=== PATIENT | female | born 1985 | race Two or more races ===

== ENCOUNTER 2020-07-28 08:01 | Outpatient (REF) | payer OTHER, SELFPAY ==
[2020-07-31 20:12] LABS: HPV 16 RNA NOT DETECTED (NOT DETECTED); HPV mRNA E6/E7 rflx Detected (Not Detected)
== END 2020-07-28 08:02 | disposition home or self-care (01) ==
LOC: HO.LAB 08:01
PROVIDERS: Visit Provider Advanced Practice Midwife
DX: Z12.4 Encounter for screening for malignant neoplasm of cervix (principal); Z87.42 Personal history of other diseases of the female genital tract; Z86.19 Personal history of other infectious and parasitic diseases
CPT/HCPCS: 87624; 87625; 88141; 88142

== ENCOUNTER 2021-06-02 09:08 | Outpatient (REF) | payer OTHER, SELFPAY ==
[2021-06-04 07:13] LABS: CT PCR NOT DETECTED (Not Detect.); NG PCR NOT DETECTED (Not Detect.)
[2021-06-04 11:03] LABS: BV Int Neg Control Negative (Negative); BV Int Pos Control Positive (Positive)
[2021-06-06 11:11] LABS: HPV mRNA E6/E7 rflx Not Detected (Not Detected)
== END 2021-06-02 09:09 | disposition home or self-care (01) ==
LOC: HO.LAB 09:08
PROVIDERS: Visit Provider Advanced Practice Midwife
DX: Z01.419 Encounter for gynecological examination (general) (routine) without abnormal findings (principal); Z11.51 Encounter for screening for human papillomavirus (HPV); Z20.2 Contact with and (suspected) exposure to infections with a predominantly sexual mode of transmission; Z87.42 Personal history of other diseases of the female genital tract; Z87.59 Personal history of other complications of pregnancy, childbirth and the puerperium; Z86.19 Personal history of other infectious and parasitic diseases
CPT/HCPCS: 87480; 87491; 87510; 87591; 87624; 87660; 88142

== ENCOUNTER 2021-09-14 16:23 | Emergency (ER) | payer OTHER, SELFPAY ==
[2021-09-14 16:46] VITALS: BP 181/113; PULSE 99; RESP 16; TEMP 36.9; O2SAT 98; BMI 34.9
[2021-09-14] MEDS: Tetracaine HCl/PF 0.5% Oph Sol 4 ML DROPS 3 DROP EYE-BOTH (17:31)
[2021-09-14] MEDS: Fluorescein Sodium STRIP 1 STRIP EYE-RIGHT (17:32)
[2021-09-14] MEDS: Fluorescein Sodium STRIP 1 STRIP EYE-LEFT (17:32)
[2021-09-14 17:45] VITALS: BP 156/100; PULSE 88; RESP 18; TEMP 36.7; O2SAT 100
--- NOTE | 2021-09-14 18:17 | ED.EYEPROB ---
HPI - Eye Problem General Chief complaint: Eye Problems Stated complaint: left eye painful and swollen Time Seen by Provider: 09/14/21 17:07 Source: patient Mode of arrival: ambulatory Limitations: no limitations History of Present Illness HPI Narrative: Patient presents to ED for left eye pain, redness, and clear discharge since yesterday. Patient states she thinks something is in her eye. Patient states eye irritation started yesterday. Patient denies any blunt trauma to the eye any or chemicals going into left eye. Patient denies any blurry vision, headache, nausea, vomiting, fever , or chills. Related Data Home Medications Medication Instructions Recorded Confirmed folic acid 400 mcg tablet PO 07/28/20 06/02/21 sertraline 100 mg tablet 100 mg PO DAILY 07/28/20 06/02/21 topiramate 100 mg tablet mg PO 07/28/20 06/02/21 Previous Rx's Medication Instructions Recorded metronidazole 500 mg tablet 500 mg PO BID 7 Days #14 tab 06/05/21 erythromycin 5 mg/gram (0.5 %) eye 0.5 inch OPHTHALMIC (EYE) QID 7 09/14/21 ointment Days #3.5 g naproxen 500 mg tablet 500 mg PO BID PRN 10 Days #20 tab 09/14/21 Allergies Allergy/AdvReac Type Severity Reaction Status Date / Time No Known Allergies Allergy Verified 06/02/21 09:30 Review of Systems Review of Systems: left eye redness, watery discharge, sensation of something in the eye Yes all other systems are reviewed and are negative [facility] Past Medical History Medical History (Updated 09/14/21 @ 18:48 by FANG Abarca) Anxiety Asthma Cyst of uterus History of abnormal cervical Pap smear History of HPV infection Surgical History No history of previous surgery Family History Family History Mother Nerve damage Social History Social History (Updated 06/02/21 @ 09:32 by Osmany Queen CMA) Alcohol intake: never Advance Directives: No Advance Directives Information Provided: No Sexual orientation: Straight/Heterosexual Gender identity: Female Physical Exam Vital Signs: Vital Signs: Last Vital Signs Temp 98.1 F 09/14/21 17:45 Pulse 88 02/14/22 17:45 Resp 18 09/14/21 17:45 BP 156/100 H 09/14/21 17:45 Pulse Ox 100 09/14/21 17:45 BMI result Body Mass Index 34.9 Const: General: cooperative, healthy appearing, comfortable, no acute distress, well developed, alert, awake and Physically active Orientation/consciousness: patient oriented x3 HENMT: Head: Yes normal to inspection, Yes No palpable skull fracture present, Yes normocephalic, Yes atraumatic and No abrasion Eyes: Other: Left eye: Negative for any eyelid swelling. Positive for conjunctiva and scleral redness with clear tearing. Tonometry pressure is 18. I anesthetized with tetracaine. Fluorescein dye used. Wood's lamp used and shows corneal abrasions. 20/100 Right eye: Negative for any eyelid swelling. Positive for conjunctiva and scleral redness with clear tearing. Tonometry pressure is 18. I anesthetized with tetracaine. Fluorescein dye used. Wood's lamp used and negative for corneal abrasions. 20/15 General: appearance normal, both eyes and all related structures Eyes/upper lids images: 1. corneal abrasions 2. corneal abrasions Neck: Neck: Yes normal visual inspection, Yes full ROM, Yes no lymphadenopathy, Yes no meningeal signs, Yes trachea midline, Yes supple, No anterior neck swelling and No tender Chest: Chest palpation & inspection: normal inspection of the chest and normal palpation of entire chest wall Resp: Effort & Inspection: normal respiratory effort and able to speak in complete sentences Auscultation: clear to auscultation bilaterally Cardio: Jugular venous distension: no JVD Heart sounds: S1 normal heart sound present and S2 normal heart sound present GI: Inspection: Yes normal to inspection and No abdominal wall ecchymosis Palpation (GI): Soft to palpation, not firm, nontender, no guarding and not rigid : General: No CVA tenderness and Yes no CVA tenderness Back/Spine/Pelvis: Back: no CVA tenderness, No CVA tenderness and No back tenderness Skin: General skin exam: no rashes or lesions noted and elasticity normal Neuro: General: patient oriented x3, gait normal, no meningeal signs and CN's II-XI intact bilaterally Cranial nerves: Yes CN's II-XII intact bilaterally Extrem: General: Yes normal to inspection and Yes full ROM Psych: Appearance: grossly normal, well kempt and not disheveled Course Course Course Narrative: left eye evaluation. Reevaluation(s) Reevaluation #1: Left eye positive for left eye corneal abrasion. PATIENT WILL BE DISCHARGED WITH EYE ANTIBIOTIC OINTMENT.. Patient Time: 18:46 MDM - Eye Problem MDM Narrative Medical decision making narrative: cORNEAL ABRASION Discharge Plan Discharge Clinical Impression: Corneal abrasion Patient Disposition: Home, Self-Care Instructions: Corneal Abrasion (DC) Additional Instructions: LEE EXAMEN DE LA VISTA RESULT? POSITIVO POR ABRASI?N CORNEAL. NECESITAR?S POMADA ANTIBI?LAUREN PARA EL LOBITO. POR FAVOR, CONSULTE AL M?DICO DE [place] PARA ETRI REEVALUACI?N. REGRESE AL ED POR EL EMPEORAMIENTO DEL DOLOR EN [place], EL EMPEORAMIENTO/CAMBIO EN LA VISI?N, LA P?RDIDA DE LA VISI?N, EL EMPEORAMIENTO DE LA SECRECI?N EN [place], EL DOLOR DE JONH, LOS MAREOS, [place] MARE[place], LA FIEBRE, LOS ESCALOFRIOS, LA HINCHAZ?N DE [place] O CUALQUIER OTRO S?NTOMA PREOCUPANTE. Prescriptions: New erythromycin 5 mg/gram (0.5 %) ointment 0.5 inch ophthalmic (eye) QID 7 Days Qty: 3.5 0RF Rx Instructions: left eye naproxen 500 mg tablet 500 mg PO BID PRN (Reason: pain) 10 Days Qty: 20 0RF No Action metronidazole 500 mg tablet 500 mg PO BID 7 Days Qty: 14 0RF Rx Instructions: Take with food, Avoid alcohol and vinegar products sertraline 100 mg tablet 100 mg PO DAILY 0RF topiramate 100 mg tablet PO 0RF folic acid 400 mcg tablet PO 0RF Referrals: Gilles Bill [Physician] - 2 days (LEft eye corneal abrasion) Stand Alone Forms: Work/School Release Interventions: ED Discharge Assessment Last Done: 09/14/21 19:10 Discharge Date/Time: 09/14/21 19:10 Print Language: Greenlandic
[2021-09-14] MEDS: Diphth,Pertus(ACell),Tet Adult 0.5 ML SYRINGE IM (18:54)
== END 2021-09-14 19:10 | disposition home or self-care (01) ==
PROVIDERS: Emergency Provider Internal Medicine; PCP Internal Medicine
DX: S05.02XA Injury of conjunctiva and corneal abrasion without foreign body, left eye, initial encounter (principal); X58.XXXA Exposure to other specified factors, initial encounter; Y93.9 Activity, unspecified; Y92.9 Unspecified place or not applicable; Y99.9 Unspecified external cause status
CPT/HCPCS: 90471; 90715; 99283; 99284

== ENCOUNTER 2022-07-21 10:26 | Outpatient (REF) | payer OTHER, SELFPAY ==
[2022-07-21 18:10] LABS: CT PCR NOT DETECTED (Not Detect.); NG PCR NOT DETECTED (Not Detect.)
[2022-07-22 12:16] LABS: BV Int Neg Control Negative (Negative)
[2022-07-22 12:17] LABS: BV Int Pos Control Positive (Positive)
== END 2022-07-21 10:27 | disposition home or self-care (01) ==
LOC: HO.LNP 10:26
PROVIDERS: PCP Internal Medicine; Visit Provider Advanced Practice Midwife
DX: Z11.3 Encounter for screening for infections with a predominantly sexual mode of transmission (principal); B37.31 Acute candidiasis of vulva and vagina; Z87.42 Personal history of other diseases of the female genital tract; Z86.19 Personal history of other infectious and parasitic diseases; Z87.59 Personal history of other complications of pregnancy, childbirth and the puerperium
CPT/HCPCS: 87480; 87491; 87510; 87591; 87660

== ENCOUNTER 2023-03-14 03:39 | Emergency (ER) | payer OTHER, SELFPAY ==
--- NOTE | ~2023-03-14 | XR_ITS ---
EXAMINATION: XR CHEST CLINICAL INFORMATION: Cough. Shortness of breath. COMPARISON: 08/02/2017. TECHNIQUE: Frontal view of the chest was obtained. FINDINGS: The cardiomediastinal silhouette is normal. There is no focal lung consolidation or pleural effusion. The bony structures and soft tissues are unremarkable. XR/XR chest 1V IMPRESSION: No active cardiopulmonary disease.
--- NOTE | 2023-03-14 04:00 | PC.NURSE ---
Pt enters my care- pt presents with good air entry with bilateral wheezing- Pt able to talk in full sentences and maintain airway
[2023-03-14 04:14] VITALS: BP 197/117; PULSE 113; RESP 20; TEMP 36.7; O2SAT 98; BMI 34.4
[2023-03-14] MEDS: methylPREDNISolone Sod Succ 125 MG/2 ML VIAL IVPUSH (04:23)
[2023-03-14] MEDS: Magnesium Sulfate/H2O 2 GM/50 ML PIGGYBACK IV (04:23)
--- NOTE | 2023-03-14 04:25 | ED_ITS ---
HPI - Asthma General Chief Complaint: Asthma Stated Complaint: cough, asthmatic Time Seen by Provider: 03/14/23 04:18 Source: patient Mode of arrival: ambulatory Limitations: no limitations History of Present Illness HPI Narrative: Patient comes to the emergency room complaining of an asthma exacerbation and a cough for a week. Patient tried using her inhaler prior to arrival but it did not work. Related Data Home Medications Medication Instructions Recorded Confirmed folic acid 400 mcg tablet PO 07/28/20 07/21/22 sertraline 100 mg tablet 100 mg PO DAILY 07/28/20 07/21/22 topiramate 100 mg tablet mg PO 07/28/20 07/21/22 Previous Rx's Medication Instructions Recorded naproxen 500 mg tablet 500 mg PO BID PRN pain 10 days #20 09/14/21 tabs clotrimazole 1 % vaginal cream 1 appful vaginal BEDTIME #45 grams 07/21/22 metronidazole 500 mg tablet 500 mg PO BID 7 days #14 tabs 07/22/22 prednisone 50 mg tablet 50 mg PO DAILY #4 tabs 03/14/23 Allergies Allergy/AdvReac Type Severity Reaction Status Date / Time No Known Allergies Allergy Verified 07/21/22 10:28 Review of Systems Review of Systems: Constitutional : No Weight loss, No Fever, No Chills, No Night Sweats, No Fatigue, No Malaise ENT/Mouth : No Hearing loss, No Ear Pain, No Nasal Congestion, No Sinus Pain, No Hoarseness, No sore throat, No Rhinorrhea, No Swallowing Difficulty Eyes: No Eye Pain, No Swelling, No Redness, No Foreign Body, No Discharge, No Vision Changes Cardiovascular : No Chest Pain, No SOB, No Dyspnea on Exertion, No Orthopnea, No Edema, No Palpitations Respiratory : Patient complaining of cough, wheezing Gastrointestinal : No Nausea, No Vomiting, No Diarrhea, No Constipation, No abdominal Pain, No Hematochezia, No Melena Genitourinary : no irregular bleeding, No Dysuria, No Urinary Frequency, No Hematuria, No Urinary Incontinence, No Urgency, No Flank Pain, No Urinary Flow Changes, No Hesitancy Musculoskeletal : No joint pain, No Myalgias, No Joint Swelling Skin : No Skin Lesions, No rash Neuro : No Weakness, No Numbness, No Paresthesias, No Loss of Consciousness, No Dizziness, No Headache Psych : No Anxiety/Panic, No Depression, No SI/HI/AH/VH, No Social Issues, Heme/Lymph: No Bruising, No Bleeding,No Lymphadenopathy Endocrine : No Polyuria, No Polydipsia, No Temperature Intolerance [facility] Past Medical History Medical History Anxiety Asthma Cyst of uterus History of abnormal cervical Pap smear History of HPV infection Hypertension Surgical History No history of previous surgery Family History Family History Mother Nerve damage Social History Social History (Updated 06/02/21 @ 09:32 by Osmany Queen CMA) Alcohol intake: never Smoked in Last 30 Days: No Patient : No Sexual orientation: Straight/Heterosexual Gender identity: Female Physical Exam Vital Signs: Vital Signs: Last Vital Signs Temp 98.0 F 03/14/23 04:14 Pulse 93 03/14/23 04:27 Resp 14 03/14/23 04:27 BP 197/117 H 03/14/23 04:14 Pulse Ox 98 03/14/23 04:14 O2 Del Method Room Air 03/14/23 04:14 BMI result Body Mass Index 34.4 Const: Other: Appearance: Alert. Oriented X3. No acute distress. Eyes: Pupils equal, round and reactive to light. ENT: Pharynx normal. Neck: Normal inspection. Neck supple. No lymph nodes noted. No crepitus CVS: Normal heart rate and rhythm. Pulses normal. Normal S1 and S2 Respiratory: Moderate air movement, bilateral wheezing, speaking in full sentences Abdomen: Soft and nontender. No rigidity. No distention. Skin: Skin warm and dry. Normal skin color. Normal skin turgor. Extremities: No lower extremity edema. No Lacerations. No Rash Neuro: Oriented X 3. No motor deficit. No sensory deficit. Moving all extremities. No slurred speech. CN 2 through 12 grossly intact Psych: calm, cooperative, normal affect Course Course Course Narrative: -patient receiving a nebulization treatment, IV Solu-Medrol and magnesium -chest x-ray pending -initial heart rate 113 from previous nebulization treatments prior to arrival, no fever Medications Administered Generic Name Dose Route Start Last Admin Trade Name Freq PRN Reason Stop Dose Admin Magnesium Sulfate 2 gm in 50 mls @ 25 mls/hr 03/14/23 04:18 03/14/23 04:23 Magnesium Sulfate/H2o IV 03/14/23 06:17 25 mls/hr ONCE ONE Administration Discontinued Medications Generic Name Dose Route Start Last Admin Trade Name Alban PRN Reason Stop Dose Admin Albuterol Sulfate 10 mg 03/14/23 04:18 03/14/23 04:29 Albuterol Sulfate (0.083%) 2.5 Mg/3 Ml Vial.Neb INHALE 03/14/23 04:19 10 mg ONCE ONE Administration Methylprednisolone Sodium Succinate 125 mg 03/14/23 04:18 03/14/23 04:23 Methylprednisolone Sod Succ 125 Mg/2 Ml Vial IVPUSH 03/14/23 04:19 125 mg ONCE ONE Administration Medical Decision Making Medical Decision Making MDM Narrative: -after IV Solu-Medrol, magnesium, nebulization treatment, patient states that she feels much better. -oxygen saturation 100% on room air. -patient not have any desaturations while walking around the emergency room. -auscultation before discharge, patient has normal air movement, no wheezing at all, oxygen saturation 100% on room air -patient states she has enough albuterol at home, prednisone has been to the patient's pharmacy Differential Diagnosis Differential Diagnoses: The differential diagnosis associated with the presentation includes (Asthma, bronchitis, pneumonia) Admission/Observation Consideration of admission/observation: Escalation of care including admission/observation considered (Patient came in with difficulty breathing. Admission was considered) Independent Interpretation I performed an independent interpretation of an: Plain X-Ray (My interpretation of chest x-ray: No pneumonia) Radiology Impression Discussion of test interpretation with radiology: I have reviewed the radiologist's reading. Radiologist Impression: FINDINGS: The cardiomediastinal silhouette is normal. There is no focal lung consolidation or pleural effusion. The bony structures and soft tissues are unremarkable. XR/XR chest 1V IMPRESSION: No active cardiopulmonary disease. Critical Care Time Critical Care Time Critical Care Time: Yes Total Critical Care Time: 45 Attestation: I have personally provided critical care time. Time includes review of lab data, radiology results, discussion with consultants, and monitoring for potential decompensation. Intervention performed as documented. Discharge Plan Discharge Clinical Impression: Asthma Patient Disposition: Home, Self-Care Instructions: Asthma (ED) Additional Instructions: Start taking oral prednisone on March 15. Please follow-up with your primary care physician tomorrow. If you have any worsening or new symptoms, please return to the emergency room or call 911 Prescriptions: New prednisone 50 mg tablet 50 mg PO DAILY Qty: 4 0RF No Action metronidazole 500 mg tablet 500 mg PO BID 7 Days Qty: 14 0RF naproxen 500 mg tablet 500 mg PO BID PRN (Reason: pain) 10 Days Qty: 20 0RF sertraline 100 mg tablet 100 mg PO DAILY topiramate 100 mg tablet PO folic acid 400 mcg tablet PO clotrimazole 1 % cream 1 appful vaginal BEDTIME Qty: 45 1RF
[2023-03-14 04:27] VITALS: PULSE 93; RESP 14; O2SAT 100
[2023-03-14] MEDS: Albuterol Sulfate (0.083%) 2.5 MG/3 ML VIAL.NEB 10 MG INHALE (04:29)
== END 2023-03-14 05:58 | disposition home or self-care (01) ==
LOC: HO.ED 05:44
PROVIDERS: Emergency Provider Emergency Medicine; PCP Internal Medicine
DX: J45.909 Unspecified asthma, uncomplicated (principal)
CPT/HCPCS: 71045; 94640; 96374; 96375; 99284; J2930; J3475

== ENCOUNTER 2023-07-27 10:20 | Outpatient (REF) | payer OTHER, SELFPAY ==
[2023-07-28 02:51] LABS: CT PCR NOT DETECTED (Not Detect.); NG PCR NOT DETECTED (Not Detect.)
[2023-07-28 12:48] LABS: BV Int Neg Control Negative (Negative); BV Int Pos Control Positive (Positive)
== END 2023-07-27 10:21 | disposition home or self-care (01) ==
LOC: HO.LAB 10:20
PROVIDERS: PCP Internal Medicine; Visit Provider Advanced Practice Midwife
DX: Z01.419 Encounter for gynecological examination (general) (routine) without abnormal findings (principal); I10 Essential (primary) hypertension; Z11.51 Encounter for screening for human papillomavirus (HPV); Z11.3 Encounter for screening for infections with a predominantly sexual mode of transmission; Z86.19 Personal history of other infectious and parasitic diseases
CPT/HCPCS: 0353U; 87480; 87510; 87660; 99396

== ENCOUNTER 2023-07-27 10:20 | Outpatient (AMB) | payer OTHER, SELFPAY ==
--- OUTSIDE RECORDS SUMMARY | 2023-07-27 10:22 | XMS_ITS | Patient Health Record ---
Author Name Unknown Organization [facility] Address [address], [place] [id number] Support Name Relationship Address Phone Delphine Damico Emergency Contact [address] [facility] [address] Kristi Damico Guarantor Unknown [phone] REASON FOR REFERRAL No Information SOCIAL HISTORY Sex Assigned At : Social History Observation Description Sex Assigned At Unknown PLAN OF TREATMENT No Information Insurance Providers Payer Name Payer Address Payer Phone Subscriber Number Group Number Insured Name Patient Relationship to Insured Coverage Start Date Coverage End Date [facility] HealthNet Plan [address] [address] [place] [address] [id number] Kristi Damico Self - patient is the insured [place] Medicaid Standard [address] [place] [address] [id number] Kristi Damico Self - patient is the insured
--- NOTE | 2023-07-27 10:28 | A.OFFVIS_ITS ---
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: Yes Director Of Retail Operations Language: Indonesian Information Interpreted: non-clinical & clinical Decision Unit Rn: Decision Unit Rn Present (Rolando) Allergies No Known Allergies Allergy (Verified 07/27/23 10:33) Medication List - Last Reviewed 07/27/23 by LIBRA Del Castillo clotrimazole 1% 1 appful vaginal BEDTIME folic acid PO losartan 100 mg PO DAILY naproxen 500 mg PO BID PRN 10 days prednisone 50 mg PO DAILY sertraline 100 mg PO DAILY topiramate mg PO Is last menstrual period known: Yes Last menstrual period: 07/13/23 Post menopausal: No HPI 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 She is not having any senior portfolio manager concerns she is not contraceptive and she says she is on blood pressure medicine but she does not know the name of it she really has no idea she does know that she was told by her doctor that she should not get while she is on it and the medicine would have to change. She would be happy if she got . She says she gets regular periods she goes to [employer] she is not worried about her health. [facility] Medical History (Updated 07/27/23 @ 11:27 by Melissa Salmeron CNM) Hypertension History of HPV infection History of abnormal cervical Pap smear Cyst of uterus Asthma Anxiety Surgical History No history of previous surgery Family History Mother Nerve damage Social History Alcohol intake: never Sexual orientation: Straight/Heterosexual Gender identity: Female Female Reproductive History Menstrual Age of Menarche: 10 Duration of menses: 6-7 days Date of last menstrual period: 07/13/23 control method: none Total pregnancies: 2 Full term: 1 Number of Living Children: 1 Ab spontaneous: 1 Date of last pap smear: 06/04/21 (negative) History of abnormal pap smear: Yes (2020 +HPV) Physical Exam Vital Signs: Last Vital Signs BP 130/80 07/27/23 10:37 BMI result Body Mass Index 34.2 Const Other: patient has laura on her neck from what she says was a tube that was placed to help her breathe for 2 months in [place] from inhaling bad paint Other: vagina pink clear cervix multiparous pink smooth with abundant mucus uterus small anteverted mobile nontender. fair tone with Kegel Assessment & Plan Assessment & Plan (1) History of abnormal cervical Pap smear: Comment: 06/02/21 pap= neg w neg hpv Code(s): Z87.42 - Personal history of other diseases of the female genital tract (2) History of HPV infection: Code(s): Z86.19 - Personal history of other infectious and parasitic diseases (3) Hypertension: Comment: Patient sees MD in [place] whose name she does not know. She is states she is on antihypertensive medicine but does not know the name and she takes it in the evening. Requested that patient call her primary a sap for a follow-up appointment... 07/27/2023 patient questioned at length with translation and she thinks that she is on losartan but she does not really know the name of it Code(s): I10 - Essential (primary) hypertension (4) Well woman exam with routine gynecological exam: Code(s): Z01.419 - Encounter for gynecological examination (general) (routine) without abnormal findings Plan -----Discussed in this visit the following: healthy balanced diet, regular and consistent exercise, getting recommended health screens, doing the best she can for her particular health concerns, kegel exercises, pap smear screening and followup recommendations, mammography screening and SBE, normal changes in cycles in her life stage--- . cussed that if she did get she would have to call her primary care provider right away and let them know so they could change the medication that she is on and that she would need to seek care at either [facility] or [facility] but not here discussed that a at her age would require additional testing and surveillance to ensure that everything would be okay. Pap was done as well as cultures. Mammogram will be ordered Orders: Orders MM tomosynthesis screening BI Today I10 - Essential (primary) hypertension, Z01.419 - Encounter for gynecological examination (general) (routine) without abnormal findings, Z12.31 - Encounter for screening mammogram for malignant neoplasm of breast, Z86.19 - Personal history of other infectious and parasitic diseases, Z87.42 - Personal history of other diseases of the female genital tract Coding Level of Care Code Est Pt Prev Care 40-64y(60217) Diagnoses History of abnormal cervical Pap smear Z87.42 History of HPV infection Z86.19 Hypertension I10 Well woman exam with routine gynecological exam Z01.419
[2023-07-27 10:37] VITALS: BP 130/80; BMI 34.2
== END 2023-07-27 13:36 | disposition home or self-care (01) ==
LOC: HO.HWSM 10:20
PROVIDERS: PCP Internal Medicine; Visit Provider Advanced Practice Midwife
DX: Z01.419 Encounter for gynecological examination (general) (routine) without abnormal findings (principal); Z87.42 Personal history of other diseases of the female genital tract; I10 Essential (primary) hypertension; Z86.19 Personal history of other infectious and parasitic diseases
CPT/HCPCS: 99396

== ENCOUNTER 2023-07-27 11:32 | Outpatient (REF) | payer OTHER, SELFPAY ==
[2023-08-03 04:53] LABS: HPV 16 RNA NOT DETECTED (NOT DETECTED); HPV mRNA E6/E7 rflx Detected (Not Detected)
== END 2023-07-27 11:33 | disposition home or self-care (01) ==
LOC: HO.LNP 11:32
PROVIDERS: Visit Provider Advanced Practice Midwife
DX: Z87.42 Personal history of other diseases of the female genital tract (principal)
CPT/HCPCS: 87624; 87625; 88142

== ENCOUNTER 2023-08-30 13:06 | Outpatient (REF) | payer OTHER, SELFPAY ==
--- NOTE | ~2023-08-30 | MM_ITS ---
EXAMINATION: MM SCREENING DIGITAL BREAST TOMOSYNTHESIS, BILATERAL CLINICAL INFORMATION: Screening. Asymptomatic. COMPARISON: Mammography: This is a baseline mammogram. TECHNIQUE: Digital breast tomosynthesis is performed in both the craniocaudal and mediolateral oblique views along with computer-aided detection (CAD). Synthesized 2D images are generated from the tomosynthesis. FINDINGS: The breasts are heterogeneously dense, which may obscure small masses (ACR BI-RADS breast composition Category c). There are no significant masses, abnormal calcifications, or other abnormalities. MM/MM tomosynthesis screening BI IMPRESSION: No mammographic evidence of malignancy. ASSESSMENT: BI-RADS BI-RADS 1 - Negative RECOMMENDATION: Routine annual mammography screening. 1 year F/U This examination should not preclude the clinical evaluation of a suspicious palpable abnormality. This patient's information was entered into a reminder system with a target due date for their next mammogram.
== END 2023-08-30 13:07 | disposition home or self-care (01) ==
LOC: HO.MAMMO 13:06
PROVIDERS: PCP Internal Medicine; Visit Provider Advanced Practice Midwife
DX: Z12.31 Encounter for screening mammogram for malignant neoplasm of breast (principal)
CPT/HCPCS: 77063; 77067

== ENCOUNTER → 2023-08-30 13:15 | Outpatient (BNV) | payer OTHER, SELFPAY | PROVIDERS: PCP Internal Medicine; Visit Provider Radiology Diagnostic Radiology | DX: Z12.31 Encounter for screening mammogram for malignant neoplasm of breast (principal) | CPT/HCPCS: 77063; 77067 ==

== ENCOUNTER 2023-09-15 10:42 | Outpatient (AMB) | payer OTHER, SELFPAY ==
[2023-09-15 11:01] VITALS: BP 136/76; BMI 33.3
--- NOTE | 2023-09-15 11:01 | A.OFFVIS_ITS ---
Intake Vital Signs 09/15/23 11:01 Height 5 ft 1 in Weight 176 lb BMI 33.3 BP 136/76 Intake Visit Reasons: Repeat pap Digital Media Sales Consultant Required: No Information Interpreted: clinical only Small Brake Form Operator: Small Brake Form Operator Present Allergies No Known Allergies Allergy (Verified 09/15/23 11:02) Medication List - Last Reconciled 09/15/23 by Melissa Salmeron CNM clotrimazole 1% 1 appful vaginal BEDTIME folic acid PO losartan 100 mg PO DAILY metronidazole 500 mg PO BID 7 days naproxen 500 mg PO BID PRN 10 days sertraline 100 mg PO DAILY topiramate mg PO Is last menstrual period known: Yes Last menstrual period: 09/02/23 Patient : No Do you need a note to return to daycare/school/sports/work: No HPI Repeat pap HPI Details Patient is here for a repeat Pap smear she had HPV in the past and the last Pap came back insufficient in some way but HPV was positive. Patient is not using control she is open to . [facility] Medical History Hypertension History of HPV infection History of abnormal cervical Pap smear Cyst of uterus Asthma Anxiety Surgical History No history of previous surgery Family History Mother Nerve damage Social History Alcohol intake: never Patient : No Sexual orientation: Straight/Heterosexual Gender identity: Female Female Reproductive History Menstrual Age of Menarche: 10 Date of last menstrual period: 09/02/23 control method: none Total pregnancies: 1 Full term: 1 Date of last pap smear: 07/28/23 (unsatisfactory, previous pap 06/21 negative with/HPV) History of abnormal pap smear: Yes (Positive HPV in past, and recent Pap positive HPV Pap inconclusive. Pap re) Physical Exam Vital Signs: Last Vital Signs BP 136/76 09/15/23 11:01 BMI result Body Mass Index 33.3 Other: Cervix multiparous friable with the Pap smear there was a yellowish thick discharge. Cultures done as well out of an abundance of caution. External Female Exam: normal external appearance and normal appearance of the urethra Speculum Exam - Vagina: normal appearance of the vagina Speculum Exam - Cervix: normal appearance of the cervix and Cervical os closed Results Reviewed Results Reviewed: Previous Paps... Assessment & Plan Assessment & Plan (1) History of HPV infection: Code(s): Z86.19 - Personal history of other infectious and parasitic diseases (2) History of abnormal cervical Pap smear: Comment: 06/02/21 pap= neg w neg hpv; 07/27/2023 Pap is pending, with positive HPV. (08/18- Pap has just come back nondiagnostic needs to be repeated...) Code(s): Z87.42 - Personal history of other diseases of the female genital tract Plan Pap smear was assertively repeated cultures were done secondary to the yellowish discharge. Given her history of the HPV I recommended if she does not hear from us about the results by 3 weeks I asked her to call in in case results or misplaced or something happens so that follow-up is assured. Coding Level of Care Code Est Pt Level 3 (43368) Diagnoses History of HPV infection Z86.19 History of abnormal cervical Pap smear Z87.42
== END 2023-09-15 11:27 | disposition home or self-care (01) ==
LOC: HO.HWSM 10:42
PROVIDERS: PCP Internal Medicine; Visit Provider Advanced Practice Midwife
DX: Z86.19 Personal history of other infectious and parasitic diseases (principal); Z87.42 Personal history of other diseases of the female genital tract
CPT/HCPCS: 99213

== ENCOUNTER 2023-09-15 10:42 | Outpatient (REF) | payer OTHER, SELFPAY ==
[2023-09-16 02:48] LABS: CT PCR NOT DETECTED (Not Detect.); NG PCR NOT DETECTED (Not Detect.)
[2023-09-16 09:55] LABS: BV Int Neg Control Negative (Negative); BV Int Pos Control Positive (Positive)
[2023-09-21 03:24] LABS: HPV 16 RNA NOT DETECTED (NOT DETECTED); HPV mRNA E6/E7 rflx Detected (Not Detected)
== END 2023-09-15 10:43 | disposition home or self-care (01) ==
LOC: HO.LAB 10:42
PROVIDERS: PCP Internal Medicine; Visit Provider Advanced Practice Midwife
DX: R87.615 Unsatisfactory cytologic smear of cervix (principal); Z12.4 Encounter for screening for malignant neoplasm of cervix; Z86.19 Personal history of other infectious and parasitic diseases; Z87.42 Personal history of other diseases of the female genital tract; Z79.899 Other long term (current) drug therapy; Z20.2 Contact with and (suspected) exposure to infections with a predominantly sexual mode of transmission
CPT/HCPCS: 0353U; 87480; 87510; 87624; 87625; 87660; 88142; 99212

== ENCOUNTER 2023-10-31 08:30 | Outpatient (REF) | payer OTHER, SELFPAY ==
--- NOTE | ~2023-10-31 | CT_ITS ---
EXAMINATION: CT HEAD WITH/WITHOUT CONTRAST CLINICAL INFORMATION: Headache, optic disc elevation COMPARISON: None available. TECHNIQUE: Contiguous axial imaging was performed from the skull base to vertex before and after the administration of 85 mL of Omnipaque [address] examination was performed using dose optimization techniques as appropriate, variously including the following: *Automated exposure control *Adjustment of mA and/or kV according to patient size (this includes techniques or standardized protocols for targeted exams where dose is matched to indication/reason for exam; i.e. extremities or head) *Use of iterative reconstruction technique DLP: 1602 mGy-cm FINDINGS: Ventricles, sulci and cisterns are normal. There is no midline shift, no abnormal intra- or extra- axial fluid accumulation. [place] and white matter differentiation is normal. Post contrast images show normal enhancement of major intracerebral blood vessels. A prominent asymmetric contrast-filled venous channel is seen in lateral lower right frontal lobe, at the level of superior border of right sylvian fissure, measuring 1.0 cm in AP length, 0.2 cm in width. No abnormal meningeal enhancement could be seen. Bone window images show no evidence of skull fracture. Mild polypoid mucosal thickening is seen in lower right maxillary sinus. Within the limitation of whole brain evaluation, bilateral eyeballs are intact and symmetrical. Asymmetric focal calcification is seen in posterior scapula of left eye. Bilateral optic nerve/ophthalmic vein complexes are symmetric. No evidence of extrinsic compression. CT/CT head/brain wo/w IV con IMPRESSION: 1. No signs of increased intracranial pressure. 2. A prominent asymmetric contrast-filled venous channel is seen in lateral lower right frontal lobe, at the level of superior border of right Sylvian fissure, compatible with developmental venous anomaly. 3. No evidence of intracranial hemorrhage or skull fracture. 4. No enhancing intracranial mass lesion could be found. 5. Mild polypoid mucosal thickening in lower right maxillary sinus. 6. No evidence of intraorbital mass lesion or optic nerve compression could be seen.
[2023-10-31] MEDS: iohexoL 350 MG/ML 100 ML INFUS..BTL 85 ML IV (09:21)
== END 2023-10-31 08:31 | disposition home or self-care (01) ==
LOC: HO.CT 08:30
PROVIDERS: PCP Internal Medicine; Visit Provider Ophthalmology
DX: R51.9 Headache, unspecified (principal)
CPT/HCPCS: 70470; Q9967

== ENCOUNTER 2024-03-12 21:28 | Emergency (ER) | payer OTHER, SELFPAY ==
--- NOTE | 2024-03-12 | ECG_ITS ---
Test Reason : upper resp Blood Pressure : / mmHG Vent. Rate : 081 BPM Atrial Rate : 081 BPM P-R Int : 128 ms QRS Dur : 088 ms QT Int : 394 ms P-R-T Axes : 070 031 038 degrees QTc Int : 457 ms Normal sinus rhythm Normal ECG When compared with ECG of 25-FEB-2019 20:18, No significant change was found Referred By: Generic ED Physician Electronically Signed By:BRYCE ORELLANA
--- NOTE | ~2024-03-12 | XR_ITS ---
EXAMINATION: XR CHEST 2 VIEWS CLINICAL INFORMATION: Dyspnea. COMPARISON: Chest radiograph dated 03/14/2023 and 08/02/2017. TECHNIQUE: Frontal and lateral views of the chest were obtained. FINDINGS: The heart, great vessels, pulmonary vasculature and mediastinum are normal. The lungs show no focal infiltrate, effusion or pneumothorax. There is no acute osseous abnormality. There is mild thoracic spondylosis. XR/XR chest 2V IMPRESSION: No active cardiopulmonary disease.
[2024-03-12 21:43] VITALS: BP 198/116; PULSE 104; RESP 18; O2SAT 100
[2024-03-12 23:13] LABS: Basophils Absolute Auto 0.1 X10*3/uL (0.0-0.2); Basophils Percent Auto 1.3 % (0-2); Eosinophils Absolute Auto 1.1 X10*3/uL (0.0-0.4); Eosinophils Percent Auto 11.5 % (0-4); Hematocrit 34.3 % (37.0-47.0); Hemoglobin 10.5 g/dl (12.0-16.0); Imm Gran Abs Auto 0.02 X10*3/uL (0.00-0.03); Imm Gran Pct Auto 0.2 % (0.0-0.4); Lymphocytes Absolute Auto 3.3 X10*3/uL (1.2-4.9); MANUAL DIFF FLAG NO; Mean Corpuscular HGB Conc 30.6 g/dl (31.0-35.0); Mean Corpuscular Hemoglobin 22.2 pg (27.0-33.0); Mean Corpuscular Volume 72.5 fL (80.0-98.0); Mean Platelet Volume 9.3 fL (9.4-12.3); Monocytes Absolute Auto 0.8 X10*3/uL (0.1-1.2); Monocytes Percent Auto 8.2 % (2-11); Neutrophils Absolute Auto 4.3 x10*3/uL (2.0-8.3); Neutrophils Percent Auto 44.8 % (45-73); Platelet Count 349 X10*3/uL (160-400); Red Blood Count 4.73 X10*6/uL (4.20-5.50); Red Cell Distribution Width 17.7 % (11.0-16.0); White Blood Count 9.7 X10*3/uL (4.8-10.8)
[2024-03-12 23:30] LABS: Alanine Aminotransferase 12 U/L (0-31); Albumin Level 4.2 g/dL (3.5-5.0); Alkaline Phosphatase 91 U/L (39-117); Anion Gap 14 (12-20); Aspartate Amino Transferase 19 U/L (5-31); Bilirubin Direct 0.1 mg/dL (0.0-0.5); Bilirubin Total 0.4 mg/dL (0.0-1.0); Blood Urea Nitrogen 21 mg/dL (9-16); Calcium 9.8 mg/dL (8.4-10.2); Carbon Dioxide 23 mmol/L (22-29); Chloride 107 mmol/L (96-108); Creatinine Clr Calc Pharmacy 69.2; Estimated Glomerular Filt Rate > 60; Glucose Random 89 mg/dL (60-115); Lipase 19 U/L (8-78); Potassium 4.2 mmol/L (3.3-5.1); Sodium 140 mmol/L (135-145); Total Protein 8.2 g/dL (6.5-8.0)
[2024-03-12 23:38] LABS: Troponin-I High Sensitivity < 2.7 ng/L (<3.5-17.0)
[2024-03-12 23:59] LABS: Influenza A PCR NEGATIVE (Negative); Influenza B PCR NEGATIVE (Negative); Resp Syncy Virus RNA Qual PCR NEGATIVE (Negative); SARS COV2 PCR INHOUSE NEGATIVE (Negative)
[2024-03-13 00:40] VITALS: BP 186/112; PULSE 88; RESP 16; TEMP 36.4; O2SAT 100
[2024-03-13 00:43] VITALS: BP 190/114
--- NOTE | 2024-03-13 05:40 | ED_ITS ---
HPI - General Adult General Chief complaint: Upper Respiratory Symptoms Stated complaint: asthma,sob Time Seen by Provider: 03/13/24 05:40 History of Present Illness ED Provider: Randy ALVAREZ narrative: The patient is a 38-year-old woman who has a history of asthma. 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 Apparently she was in [place] for 2 weeks and was exposed to rabbits. Ever since then she has been experiencing asthma symptoms that have been bothering her for about a week. She has had a lot of cough and she has felt short of breath. She has chest pain associated with the coughing. No definite fever. Related Data Home Medications ?Medication ?Instructions ?Recorded ?Confirmed folic acid 400 mcg tablet PO 07/28/20 09/15/23 sertraline 100 mg tablet 100 mg PO DAILY 07/28/20 09/15/23 topiramate 100 mg tablet mg PO 07/28/20 09/15/23 losartan 100 mg tablet 100 mg PO DAILY 07/27/23 09/15/23 Previous Rx's ?Medication ?Instructions ?Recorded naproxen 500 mg tablet 500 mg PO BID PRN pain 10 days #20 09/14/21 tabs clotrimazole 1 % vaginal cream 1 appful vaginal BEDTIME #45 grams 07/21/22 metronidazole 500 mg tablet 500 mg PO BID 7 days #14 tabs 07/28/23 metronidazole 500 mg tablet 500 mg PO BID 7 days #14 tabs 09/16/23 prednisone 20 mg tablet 20 mg PO DAILY #12 tabs 03/13/24 Allergies Allergy/AdvReac Type Severity Reaction Status Date / Time No Known Allergies Allergy Verified 03/12/24 21:51 Review of Systems 2 Review of Systems: Yes all other systems are reviewed and are negative [facility] Past Medical History Medical History (Updated 03/13/24 @ 06:40 by Magan Padilla MD) Hypertension History of HPV infection History of abnormal cervical Pap smear Cyst of uterus Asthma Anxiety Surgical History No history of previous surgery Family History Family History Mother Nerve damage Social History Social History Alcohol intake: never Smoked in Last 30 Days: No Use of substances other than those prescribed or required for medical reasons: No Advance Directives: No Advance Directives Information Provided: Yes Advance Directives on File: No Do you have a plan to hurt others: No Plan Sexual orientation: Straight/Heterosexual Gender identity: Female Physical Exam ED Vital Signs: Vital Signs - 24 hr 03/12/24 21:43 03/13/24 00:40 03/13/24 00:43 Temperature 97.6 F Pulse Rate 104 H 88 Respiratory Rate 18 16 Blood Pressure 198/116 H 186/112 H 190/114 H Pulse Oximetry 100 100 Oxygen Delivery Method Room Air Room Air 03/13/24 05:44 03/13/24 05:57 03/13/24 06:53 Temperature 97.8 F 97.8 F Pulse Rate 75 73 75 Respiratory Rate 18 18 18 Blood Pressure 174/99 H 174/99 H Pulse Oximetry 95 95 Oxygen Delivery Method Room Air Room Air BMI result Body Mass Index 30.0 Const Other: The patient is awake and alert. She does not appear in overt distress. HENMT Other: Face is symmetrical. Mucous membranes moist. Eyes Other: Pupils are round equal, conjunctivae are clear, extraocular movements intact Neck Neck: Yes full ROM, Yes no lymphadenopathy and Yes no JVD Resp Other: Diminished air entry bilaterally with wheezes bilaterally. Cardio Rate: regular rate Rhythm: regular rhythm Heart sounds: S1 normal heart sound present and S2 normal heart sound present GI Other: Abdomen is soft and nontender Skin Other: Skin is dry and unremarkable Neuro Other: The patient is awake, alert, pleasant, cooperative. Normal mental status. Cranial nerves grossly intact. Moving all extremities normally. Extrem General: Yes no pedal edema and Yes no calf tenderness Medications Administered Discontinued Medications Generic Name Dose Route Start Last Admin Trade Name Freq PRN Reason Stop Dose Admin Albuterol/Ipratropium 3 ml 03/13/24 05:46 03/13/24 05:56 Albuterol/Iprat 2.5/0.5mg 3 Ml Ampul.Neb INHALE 03/13/24 05:47 3 ml ONCE ONE Administration Prednisone 60 mg 03/13/24 05:46 03/13/24 06:10 Prednisone 20 Mg Tablet PO 03/13/24 05:47 60 mg ONCE ONE Administration Medical Decision Making Medical Decision Making MDM Narrative: The patient is a 38-year-old woman with a history of allergies and a history of asthma who was recently exposed to rabbits. She has a history of allergies to rabbits. She presents with shortness of breath and cough and wheezing. Chest x-ray is negative. Labs unremarkable. She seems to have an allergy induced asthma attack. She was given a DuoNeb updraft and started on prednisone. She felt better. She will be discharged with a short course of prednisone. Lab Data 03/12/24 23:08 03/12/24 23:08 Labs: Lab Results 03/12/24 03/12/24 Range/Units 23:08 23:10 WBC 9.7 (4.8-10.8) X10*3/uL RBC 4.73 (4.20-5.50) X10*6/uL Hgb 10.5 L (12.0-16.0) g/dl Hct 34.3 L (37.0-47.0) % MCV 72.5 L (80.0-98.0) fL MCH 22.2 L (27.0-33.0) pg MCHC 30.6 L (31.0-35.0) g/dl RDW 17.7 H (11.0-16.0) % Plt Count 349 (160-400) X10*3/uL MPV 9.3 L (9.4-12.3) fL Immature Gran % (Auto) 0.2 (0.0-0.4) % Neut % (Auto) 44.8 L (45-73) % Lymph % (Auto) 34.0 (20-40) % [place] % (Auto) 8.2 (2-11) % Eos % (Auto) 11.5 H (0-4) % Baso % (Auto) 1.3 (0-2) % Lymph # (Auto) 3.3 (1.2-4.9) X10*3/uL [place] # (Auto) 0.8 (0.1-1.2) X10*3/uL Eos # (Auto) 1.1 H (0.0-0.4) X10*3/uL Baso # (Auto) 0.1 (0.0-0.2) X10*3/uL Abs Immat Gran (auto) 0.02 (0.00-0.03) X10*3/uL Absolute Neuts (auto) 4.3 (2.0-8.3) x10*3/uL Absolute Nucleated RBC 0.000 (0.0-0.012) X10*3/uL Nucleated RBC % (auto) 0.0 (0.0-0.2) /100WBC Sodium 140 (135-145) mmol/L Potassium 4.2 (3.3-5.1) mmol/L Chloride 107 (96-108) mmol/L Carbon Dioxide 23 (22-29) mmol/L Anion Gap 14 (12-20) BUN 21 H (9-16) mg/dL Creatinine 0.98 (0.5-1.4) mg/dL Estim Creat Clear Calc 69.2 Estimated GFR > 60 Random Glucose 89 (60-115) mg/dL Calcium 9.8 (8.4-10.2) mg/dL Total Bilirubin 0.4 (0.0-1.0) mg/dL Direct Bilirubin 0.1 (0.0-0.5) mg/dL AST 19 (5-31) U/L ALT 12 (0-31) U/L Alkaline Phosphatase 91 (39-117) U/L Troponin I High Sens < 2.7 (<3.5-17.0) ng/L Total Protein 8.2 H (6.5-8.0) g/dL Albumin 4.2 (3.5-5.0) g/dL Lipase 19 (8-78) U/L Influenza Type A (PCR) NEGATIVE (Negative) Influenza Type B (PCR) NEGATIVE (Negative) RSV RNA Qual (PCR) NEGATIVE (Negative) SARS-CoV-2 RNA (RT-PCR) NEGATIVE (Negative) Discharge Plan Discharge Clinical Impression: Allergic asthma with acute exacerbation Patient Disposition: Home, Self-Care Instructions: Asthma (ED) Additional Instructions: I believe that your asthma has been triggered by your allergies. The testing done in the emergency room today has been reassuring. Please use your albuterol inhaler 2-4 puffs every 4-6 hours as needed over the next several days. Please take prednisone once a day as prescribed. Next dose tomorrow, on Tuesday. Please contact your regular doctor's office to arrange a follow up appointment soon for a recheck. Return to the emergency department if worse. Prescriptions: New prednisone 20 mg tablet 20 mg PO DAILY Qty: 12 0RF Rx Instructions: Take 3 tabs (60 mg) by mouth daily by mouth for 2 days then 2 tabs (40 mg) daily by mouth for 3 days. No Action metronidazole 500 mg tablet 500 mg PO BID 7 Days Qty: 14 0RF metronidazole 500 mg tablet 500 mg PO BID 7 Days Qty: 14 0RF naproxen 500 mg tablet 500 mg PO BID PRN (Reason: pain) 10 Days Qty: 20 0RF sertraline 100 mg tablet 100 mg PO DAILY topiramate 100 mg tablet PO folic acid 400 mcg tablet PO clotrimazole 1 % cream 1 appful vaginal BEDTIME Qty: 45 1RF losartan 100 mg tablet 100 mg PO DAILY Referrals: Federica Bradley MD [Primary Care Provider] - (Asthma exacerbation) Interventions: ED Discharge Assessment Last Done: 03/13/24 06:53 Discharge Date/Time: 03/13/24 06:54 Print Language: Sri L[place]an
[2024-03-13 05:44] VITALS: BP 174/99; PULSE 75; RESP 18; TEMP 36.6; O2SAT 95
[2024-03-13] MEDS: Albuterol/Iprat 2.5/0.5MG 3 ML AMPUL.NEB INHALE (05:56)
[2024-03-13 05:57] VITALS: PULSE 73; RESP 18; O2SAT 100
[2024-03-13] MEDS: predniSONE 20 MG TABLET 60 MG PO (06:10)
[2024-03-13 06:53] VITALS: BP 174/99; PULSE 75; RESP 18; TEMP 36.6; O2SAT 95
== END 2024-03-13 06:54 | disposition home or self-care (01) ==
PROVIDERS: Emergency Provider Emergency Medicine; PCP Internal Medicine
DX: J45.901 Unspecified asthma with (acute) exacerbation (principal); Z03.818 Encounter for observation for suspected exposure to other biological agents ruled out; Z79.899 Other long term (current) drug therapy
CPT/HCPCS: 0241U; 36415; 71046; 80048; 80076; 83690; 84484; 85025; 93005; 94640; 99284; 99285

== ENCOUNTER → 2024-03-12 22:51 | Outpatient (BNV) | payer OTHER, SELFPAY | PROVIDERS: Emergency Provider Emergency Medicine; PCP Internal Medicine; Visit Provider Internal Medicine | DX: R06.02 Shortness of breath (principal) | CPT/HCPCS: 93010 ==

== ENCOUNTER 2024-09-03 15:28 | Emergency (ER) | payer OTHER, SELFPAY ==
[2024-09-03 16:05] VITALS: BP 172/117; PULSE 88; RESP 16; TEMP 36.8; O2SAT 100; BMI 31.7
--- NOTE | 2024-09-03 16:06 | ED_ITS ---
HPI - General Adult General Chief complaint: General Medical Stated complaint: shoulder blade pain/abd pain Time Seen by Provider: 09/03/24 22:10 Source: patient Mode of arrival: ambulatory Limitations: no limitations History of Present Illness ED Provider: Dr. Arlin Zamora HPI narrative: Patient comes to the emergency room complaining of epigastric pain that started yesterday. Patient states it feels like a combination of burning sensation, nausea, diarrhea. Patient also complaining of left shoulder pain. Patient denies any injuries or any falls. However, patient states that when she turns her head towards the left side, it hurts the most over the suprascapular area. Related Data Home Medications ?Medication ?Instructions ?Recorded ?Confirmed folic acid 400 mcg tablet PO 07/28/20 09/15/23 sertraline 100 mg tablet 100 mg PO DAILY 07/28/20 09/15/23 topiramate 100 mg tablet mg PO 07/28/20 09/15/23 losartan 100 mg tablet 100 mg PO DAILY 07/27/23 09/15/23 Previous Rx's ?Medication ?Instructions ?Recorded naproxen 500 mg tablet 500 mg PO BID PRN pain 10 days #20 09/14/21 tabs clotrimazole 1 % vaginal cream 1 appful vaginal BEDTIME #45 grams 07/21/22 metronidazole 500 mg tablet 500 mg PO BID 7 days #14 tabs 07/28/23 metronidazole 500 mg tablet 500 mg PO BID 7 days #14 tabs 09/16/23 prednisone 20 mg tablet 20 mg PO DAILY #12 tabs 03/13/24 cyclobenzaprine 5 mg tablet 5 mg PO TID PRN muscle spasm #10 09/03/24 tabs hyoscyamine sulfate 0.125 mg tablet 0.125 mg PO QID PRN dyspepsia #10 09/03/24 tabs Allergies Allergy/AdvReac Type Severity Reaction Status Date / Time No Known Allergies Allergy Verified 09/03/24 16:09 Review of Systems 2 Review of Systems: Constitutional : No Weight loss, No Fever, No Chills, No Night Sweats, No Fatigue, No Malaise ENT/Mouth : No Hearing loss, No Ear Pain, No Nasal Congestion, No Sinus Pain, No Hoarseness, No sore throat, No Rhinorrhea, No Swallowing Difficulty Eyes: No Eye Pain, No Swelling, No Redness, No Foreign Body, No Discharge, No Vision Changes Cardiovascular : No Chest Pain, No SOB, No Dyspnea on Exertion, No Orthopnea, No Edema, No Palpitations Respiratory : No Cough, No Sputum, No Wheezing, No Smoke Exposure, No Dyspnea Gastrointestinal : Complaining of several episodes of nausea vomiting diarrhea yesterday, none today, complaining of epigastric discomfort. No Constipation, No abdominal Pain, No Hematochezia, No Melena Genitourinary : no irregular bleeding, No Dysuria, No Urinary Frequency, No Hematuria, No Urinary Incontinence, No Urgency, No Flank Pain, No Urinary Flow Changes, No Hesitancy Musculoskeletal : Complaining of back pain above the scapula on the left No joint pain, No Myalgias, No Joint Swelling Skin : No Skin Lesions, No rash Neuro : No Weakness, No Numbness, No Paresthesias, No Loss of Consciousness, No Dizziness, No Headache Psych : No Anxiety/Panic, No Depression, No SI/HI/AH/VH, No Social Issues, Heme/Lymph: No Bruising, No Bleeding,No Lymphadenopathy Endocrine : No Polyuria, No Polydipsia, No Temperature Intolerance [facility] Past Medical History Medical History Hypertension History of HPV infection History of abnormal cervical Pap smear Cyst of uterus Asthma Anxiety Surgical History No history of previous surgery Family History Family History Mother Nerve damage Social History Social History Alcohol intake: never Smoked in Last 30 Days: No Use of substances other than those prescribed or required for medical reasons: No Advance Directives: No Advance Directives Information Provided: No Do you have a plan to hurt others: No Plan Sexual orientation: Straight/Heterosexual Gender identity: Female Physical Exam ED Vital Signs: Vital Signs - 24 hr 09/03/24 16:05 09/03/24 20:03 Temperature 98.2 F 98.4 F Pulse Rate 88 92 Respiratory Rate 16 16 Blood Pressure 172/117 H 187/115 H Pulse Oximetry 100 100 Oxygen Delivery Method Room Air Room Air BMI result Body Mass Index 31.7 Const Other: Appearance: Alert. Oriented X3. No acute distress. Well-appearing Eyes: Pupils equal, round and reactive to light. ENT: Pharynx normal. Neck: Normal inspection. Neck supple. No lymph nodes noted. No crepitus palpable spasms on the left side of the neck, normal flexion and extension, no rigidity CVS: Normal heart rate and rhythm. Pulses normal. Normal S1 and S2 Respiratory: No respiratory distress. Breath sounds normal. No Wheezing. No rales Abdomen: Soft and nontender. No rigidity. No distention. Negative Caraballo's sign, negative pain at McBurney's point, no rebound or guarding Skin: Skin warm and dry. Normal skin color. Normal skin turgor. Back: Pain to palpation over the suprascapular area on the left side, reproducible pain to palpation. Extremities: No lower extremity edema. No Lacerations. No Rash Neuro: Oriented X 3. No motor deficit. No sensory deficit. Moving all extremities. No slurred speech. CN 2 through 12 grossly intact Psych: calm, cooperative, normal affect Course Course Course Narrative: This is a Rapid Medical Exam performed in triage by Suzan Shaikh PA-C. Full HPI, ROS and PE to be performed by primary ED provider. 39-year-old female with a past medical history HTN, presenting to the ED c/o left shoulder pain, epigastric abdominal pain, & nausea x yesterday. denies injury/fall, diarrhea, vomiting PE: Nontoxic appearing, talking in complete sentences Plan: ekg, labs, UA Medical Decision Making Medical Decision Making [facility] Narrative: My interpretation of labs: Normal hematology chemistry LFTs and troponin, normal lipase, urinalysis negative I discussed the physical exam with the patient, patient has muscle spasms on the left side of the back. Patient is driving, muscle relaxant was not given today, only symptomatic medication for the abdominal pain. I considered ordering an ultrasound. However, patient had a very benign abdominal exam, along with normal LFTs Differential Diagnosis Differential Diagnoses: The differential diagnosis associated with the presentation includes (Acute cholecystitis, pancreatitis, peptic ulcer disease, viral illness, musculoskeletal pain.) Lab Data [facility] Lab Attestation statement: I reviewed the patient's lab results. 09/03/24 16:15 09/03/24 16:15 Labs: Lab Results 09/03/24 09/03/24 Range/Units 16:15 21:23 WBC 5.5 (4.8-10.8) X10*3/uL RBC 4.24 (4.20-5.50) X10*6/uL Hgb 9.4 L (12.0-16.0) g/dl Hct 30.6 L (37.0-47.0) % MCV 72.2 L (80.0-98.0) fL MCH 22.2 L (27.0-33.0) pg MCHC 30.7 L (31.0-35.0) g/dl RDW 17.9 H (11.0-16.0) % Plt Count 268 (160-400) X10*3/uL MPV 9.2 L (9.4-12.3) fL Immature Gran % (Auto) 0.5 H (0.0-0.4) % Neut % (Auto) 62.7 (45-73) % Lymph % (Auto) 23.4 (20-40) % [place] % (Auto) 11.4 H (2-11) % Eos % (Auto) 1.6 (0-4) % Baso % (Auto) 0.4 (0-2) % Lymph # (Auto) 1.3 (1.2-4.9) X10*3/uL [place] # (Auto) 0.6 (0.1-1.2) X10*3/uL Eos # (Auto) 0.1 (0.0-0.4) X10*3/uL Baso # (Auto) 0.0 (0.0-0.2) X10*3/uL Abs Immat Gran (auto) 0.03 (0.00-0.03) X10*3/uL Absolute Neuts (auto) 3.4 (2.0-8.3) x10*3/uL Absolute Nucleated RBC 0.000 (0.0-0.012) X10*3/uL Nucleated RBC % (auto) 0.0 (0.0-0.2) /100WBC PT 11.6 (10.9-12.4) SEC INR 1.0 (0.9-1.1) Sodium 137 (135-145) mmol/L Potassium 4.4 (3.3-5.1) mmol/L Chloride 109 H (96-108) mmol/L Carbon Dioxide 24 (22-29) mmol/L Anion Gap 8 L (12-20) BUN 15 (9-16) mg/dL Creatinine 0.78 (0.5-1.4) mg/dL Estim Creat Clear Calc 88.5 Estimated GFR > 60 Random Glucose 85 (60-115) mg/dL Calcium 9.0 D (8.4-10.2) mg/dL Magnesium 1.9 (1.6-2.6) mg/dL Total Bilirubin 0.3 (0.0-1.0) mg/dL Direct Bilirubin 0.1 (0.0-0.5) mg/dL AST 21 (5-31) U/L ALT 16 (0-31) U/L Alkaline Phosphatase 79 (39-117) U/L Troponin I High Sens < 2.7 (<3.5-17.0) ng/L Total Protein 7.9 (6.5-8.0) g/dL Albumin 4.0 (3.5-5.0) g/dL Lipase 22 (8-78) U/L Urine Color Yellow Urine Appearance Clear Urine pH 5.5 (5.0-9.0) Ur Specific Star 1.015 (1.005-1.025) Urine Protein Trace (Neg-Trace) mg/dL Urine Glucose (UA) Negative (Negative) mg/dL Urine Ketones Negative (Negative) mg/dL Urine Blood Moderate (2+) H (Negative) Urine Nitrite Negative (Negative) Ur Leukocyte Esterase Negative (Negative) Urine RBC 0-2 (0-2) /HPF Urine WBC 0-5 (0-5) /HPF Ur Squamous Epith Cells 0-2 (0-2) /HPF Urine Bacteria None Seen (None Seen) Hyaline Casts 0-2 (0-2) /LPF Independent Interpretation I performed an independent interpretation of an: EKG Interpretation: My interpretation of EKG: Normal sinus rhythm, heart rate 86, no ST segment depression or elevation, no T-wave inversion, QTC 454 Discharge Plan Discharge Clinical Impression: Muscle spasm, Abdominal pain Patient Disposition: Home, Self-Care Instructions: Abdominal Pain (ED), Muscle Spasm (ED) Additional Instructions: Please follow-up with your primary care physician tomorrow. If you have any worsening or new symptoms, please return to the emergency room or call 911 Prescriptions: New hyoscyamine sulfate 0.125 mg tablet 0.125 mg PO QID PRN (Reason: dyspepsia) Qty: 10 0RF cyclobenzaprine 5 mg tablet 5 mg PO TID PRN (Reason: muscle spasm) Qty: 10 0RF No Action metronidazole 500 mg tablet 500 mg PO BID 7 Days Qty: 14 0RF metronidazole 500 mg tablet 500 mg PO BID 7 Days Qty: 14 0RF naproxen 500 mg tablet 500 mg PO BID PRN (Reason: pain) 10 Days Qty: 20 0RF prednisone 20 mg tablet 20 mg PO DAILY Qty: 12 0RF Rx Instructions: Take 3 tabs (60 mg) by mouth daily by mouth for 2 days then 2 tabs (40 mg) daily by mouth for 3 days. sertraline 100 mg tablet 100 mg PO DAILY topiramate 100 mg tablet PO folic acid 400 mcg tablet PO clotrimazole 1 % cream 1 appful vaginal BEDTIME Qty: 45 1RF losartan 100 mg tablet 100 mg PO DAILY Print Language: Pakistani
--- NOTE | 2024-09-03 16:08 | ECG_ITS ---
Test Reason : CHEST PAIN Blood Pressure : */* mmHG Vent. Rate : 86 BPM Atrial Rate : 86 BPM P-R Int : 124 ms QRS Dur : 90 ms QT Int : 380 ms P-R-T Axes : 63 23 35 degrees QTcB Int : 454 ms Normal sinus rhythm Possible Left atrial enlargement Borderline ECG When compared with ECG of 12-Mar-2024 22:51, No significant change was found Referred By: Suzan Shaikh Electronically Signed By: Mitchel Mayen
[2024-09-03 16:19] LABS: MANUAL DIFF FLAG NO
[2024-09-03 16:21] LABS: Basophils Percent Auto 0.4 % (0-2); Eosinophils Absolute Auto 0.1 X10*3/uL (0.0-0.4); Eosinophils Percent Auto 1.6 % (0-4); Hematocrit 30.6 % (37.0-47.0); Hemoglobin 9.4 g/dl (12.0-16.0); Imm Gran Abs Auto 0.03 X10*3/uL (0.00-0.03); Imm Gran Pct Auto 0.5 % (0.0-0.4); Lymphocytes Absolute Auto 1.3 X10*3/uL (1.2-4.9); Lymphocytes Percent Auto 23.4 % (20-40); Mean Corpuscular HGB Conc 30.7 g/dl (31.0-35.0); Mean Corpuscular Hemoglobin 22.2 pg (27.0-33.0); Mean Corpuscular Volume 72.2 fL (80.0-98.0); Mean Platelet Volume 9.2 fL (9.4-12.3); Monocytes Absolute Auto 0.6 X10*3/uL (0.1-1.2); Monocytes Percent Auto 11.4 % (2-11); Neutrophils Absolute Auto 3.4 x10*3/uL (2.0-8.3); Neutrophils Percent Auto 62.7 % (45-73); Platelet Count 268 X10*3/uL (160-400); Red Blood Count 4.24 X10*6/uL (4.20-5.50); Red Cell Distribution Width 17.9 % (11.0-16.0); White Blood Count 5.5 X10*3/uL (4.8-10.8)
[2024-09-03 16:33] LABS: Prothrombin Time 11.6 SEC (10.9-12.4)
[2024-09-03 16:39] LABS: Alanine Aminotransferase 16 U/L (0-31); Alkaline Phosphatase 79 U/L (39-117); Anion Gap 8 (12-20); Aspartate Amino Transferase 21 U/L (5-31); Bilirubin Direct 0.1 mg/dL (0.0-0.5); Bilirubin Total 0.3 mg/dL (0.0-1.0); Blood Urea Nitrogen 15 mg/dL (9-16); Carbon Dioxide 24 mmol/L (22-29); Chloride 109 mmol/L (96-108); Creatinine Clr Calc Pharmacy 88.5; Estimated Glomerular Filt Rate > 60; Glucose Random 85 mg/dL (60-115); Lipase 22 U/L (8-78); Magnesium 1.9 mg/dL (1.6-2.6); Potassium 4.4 mmol/L (3.3-5.1); Sodium 137 mmol/L (135-145); Total Protein 7.9 g/dL (6.5-8.0)
[2024-09-03 16:52] LABS: Troponin-I High Sensitivity < 2.7 ng/L (<3.5-17.0)
--- OUTSIDE RECORDS SUMMARY | 2024-09-03 17:20 | XMS_ITS | Encounter Summary ---
Author Organization [employer] Address [address] [place] [address] Care Team Providers Care Coroner Forensic Technician Name Role Phone Federica Angel MD Primary Care Prov ider Encounter Details Date Type Department Care Team (Late st Contact Info) Description 05/04/2024 4:13 PM EDT Hospital Encounter TH HISTORIC ENCOUNTERS [facility] ONLY Federica Angel MD [address] [place] [phone] Social History Tobacco Use Types Packs/Day Years Used Date Smoking Tobacco: Never Smokeless Tobacco: Never Alcohol Use Standard Drinks/Week Comments No 0 (1 standard drink = 0.6 oz pur e alcohol) Sex and Gender Information Value Date Recorded Sex Assigned at Not on file Gender Identity Not on file Sexual Orientation Not on file Job Start Date Occupation Industry Not on file Not on file Not on file documented as of this encounter Plan of Treatment Upcoming Encounters Date Type Department Care Team (Late st Contact Info) Description 10/15/2024 10:30 AM EDT Office Visit Pulmonolgy - [place] [address] [place] [address] Zoie Chavis NP [address] [place] [address] documented as of this encounter Visit Diagnoses Not on filedocumented in this encounter Care Teams Coroner Forensic Technician Relationship Specialty Start Date End Date Federica Angel MD PCP - General 06/17/22 07/15/24 documented as of this encounter
--- OUTSIDE RECORDS SUMMARY | 2024-09-03 17:20 | XMS_ITS | Clinical Summary ---
Author Organization [facility] Address [address] [place] [address] Care Team Providers Care Gynecological Assistant Name Role Phone Waldemar Fournier MD Primary Care Provider [phone] Allergies No known active allergies Medications Medication Sig Dispensed Refills Start Date End Date Status amLODIPine (NORVASC) tablet 5 mg Take 5 mg by mouth daily. 0 Active albuterol 108 (90 Base) MCG/ACT inhaler Inhale 2 puffs into the lungs every 6 (six) hours as needed for wheezing. 0 Active levETIRAcetam (KEPPRA) 500 MG tablet Take 500 mg by mouth 2 (two) times a day. 0 Active sertraline (ZOLOFT) 100 MG tablet Take 100 mg by mouth daily. 0 Active fluticasone (FLONASE) 50 MCG/ACT nasal spray spray/apply 1 spray in each nostril daily. 0 Active Active Problems Problem Noted Date Diagnosed Date Iron deficiency anemia secondary to blood loss ( chronic) 08/28/2021 Mild intermittent asthma without complication Primary hypertension 08/28/2021 Anxiety 08/28/2021 Fibroids, submucosal 08/28/2021 Menorrhagia with regular cycle 08/28/2021 Family History Medical History Relation Name Comments Arthritis Father Hypertension Mother Anesthesia problems Neg Hx Relation Name Status Comments Father Alive Mother Alive Social History Tobacco Use Types Packs/Day Years Used Date Smoking Tobacco: Never Smokeless Tobacco: Never Alcohol Use Standard Drinks/Week Comments Not Currently 0 (1 standard drink = 0.6 oz pur e alcohol) Sex and Gender Information Value Date Recorded Sex Assigned at Not on file Gender Identity Not on file Sexual Orientation Not on file Last Filed Vital Signs Vital Sign Reading Time Taken Comments Blood Pressure 148/92 10/09/2021 9:39 AM EST Pulse 90 10/09/2021 9:39 AM EST Temperature 37.3 ??C (99.2 ??F) 10/09/2021 9:39 AM ES T Respiratory Rate - - Oxygen Saturation 100% 10/09/2021 9:39 AM EST Inhaled Oxygen Concentration - - Weight 84.8 kg (187 lb) 10/09/2021 9:39 AM EST Height 156.2 cm (5' 1.5 ) 10/09/2021 9:39 AM EST Body Mass Index 34.76 10/09/2021 9:39 AM EST Plan of Treatment Health Maintenance Due Date Last Done Comments Hepatitis B Vaccines (1 of 3 - 3-dose series) 1983 Hepatitis C Screening 1983 COVID-19 Vaccine (#1) 1983 Depression Screening 1995 BMI Counseling 2001 Preventative Health Evaluation 2001 DTap / Tdap / Td (1 - Tdap) 2002 Cervical Cancer Screening (P ap Smear) 2004 Influenza Vaccine (#1) 2024 Pneumococcal Vaccine Aged Out No long er eligible based on patient's age to complete this topic RSV Ped < 20 months Aged Out No longe r eligible based on patient's age to complete this topic Care Teams Gynecological Assistant Relationship Specialty Start Date End Date Waldemar Fournier MD PCP - General Internal Medicine 08/04/21
--- OUTSIDE RECORDS SUMMARY | 2024-09-03 17:20 | XMS_ITS | Clinical Summary ---
Author Organization [address] [facility] Address [address] [place] [address] Phone Care Team Providers Care Yard Hand Name Role Phone Federica Angel MD Primary Care Prov ider Allergies No known active allergies Medications Medication Sig Dispensed Refills Start Date End Date Status losartan (COZAAR) 100 mg tablet Take 1 tablet (100 mg total) by mouth 1 (one) time each day. 04/20/2024 Active amLODIPine (NORVASC) 10 mg tablet Take 1 tablet (10 mg total) by mouth 1 (one) time each day. 04/20/2024 Active SUMAtriptan (IMITREX) 50 mg tablet 06/14/2023 Active Ventolin HFA 90 mcg/actuation inhalerIndications:Mi ld persistent asthma, uncomplicated INHALE 2 PUFFS INTO THE LUNGS EVERY 6 HOURS NEEDED FOR COUGH OR WHEEZING. 18 each 6 07/12/2024 Active sertraline (ZOLOFT) 100 mg tablet Take 1 tablet (100 mg total) by mouth 1 (one) time each day. Active fluticasone propionate (FLONASE) 50 mcg/actuation nasal sprayIndications:Mild persistent asthma without complication,Allergic rhinitis, unspecified seasonality, unspecified trigger Administer 2 sprays into each nostril 1 (one) time each day. Shake gently. Before first use, prime pump. After use, clean tip and replace cap. 16 g 3 07/16/2024 Active Arnuity Ellipta 100 mcg/actuation blister with device inhalerIndications:Mi ld persistent asthma without complication Inhale 1 puff by mouth 1 (one) time each day. Rinse mouth after use. 1 each 3 07/16/2024 10/14/2024 Active Active Problems Problem Noted Date Diagnosed Date Moderate obstructive sleep apnea-hypopnea syndro me 07/14/2023 Overview (06/11/2024): [facility] Home Sleep Apnea Test: Date 06/06/2023 ; BMI 32.8;, AHI 21; average oxygen saturation 95% (lowest 82% without saturations <88% for 5% or more of study) - Obstructive Sleep Apnea - moderate; without sleep related hypoventilation by 2022 home sleep apnea test. Last Assessment & Plan: APAP 6-16cm sent to [facility] Assessment & Plan (07/31/2024 11:37 AM EST): On a CPAP machine. Good tolerance and compliance. Continue same management. Asthma 04/21/2018 Assessment & Plan (07/31/2024 11:37 AM EST): No recent exacerbations, ACT is 20. Will continue Arnuity Ellipta and albuterol as needed. Complex cyst of right ovary 06/30/2017 Fibroids, submucosal 06/30/2017 Hypertension 05/31/2017 Assessment & Plan (07/31/2024 11:37 AM EST): Hypertension is well-controlled on amlodipine 10 mg, and losartan 100 mg a day. Will continue same medications. Encouraged to follow a low-salt diet and exercise regularly. Patient has been working on losing weight. Orders: Comprehensive metabolic panel; Future Lipid panel with reflex to direct LDL; Future Encounters Date Type Department Care Team Description 09/03/2024 Telephone Adult Medicine [address] [phone] Federica White MD Shoulder Pain (left); Abdominal Pain (Upper middle ) 08/24/2024 10:00 AM EST Evaluation Outpatient [address] [phone] Dima Crisostomo PT Strain of right hamstring muscle, initial encounter 07/31/2024 11:15 AM EST Office Visit Adult [address] [phone] Federica White MD Primary hypertension (Primary Dx); Moderate obstructive sleep apnea-hypopnea syndrome; Mild intermittent asthma without complication; Anxiety; Strain of right hamstring muscle, initial encounter 07/16/2024 8:50 AM EST Office Visit Pulmonolgy [facility] [address] [facility] [address] [place] [address] Zoie Chavis NP Mild persistent asthma without complication (Primary Dx); Allergic rhinitis, unspecified seasonality, unspecified trigger; Moderate obstructive sleep apnea-hypopnea syndrome; Hypertension, unspecified type; Obesity (BMI 30-39.9) 06/22/[address] [phone] Federica White MD Forms/questionnaires from Last 3 Months Immunizations Name Administration Dates Next Due Pneumococcal conjugate 20 va lent (Prevnar 20, PCV 20) 2mo and older 03/07/2023 Tdap Tetanus diptheria acell ular pertussis (Boostrix; Adacel) 7yo and older 03/07/2023 Medical History Medical History Date Comments Asthma DX:Asthma Anxiety 04/21/2018 DX:Anxiety Complex cyst of right ovary 06/30/2017 DX:C omplex cyst of right ovary Fibroids, submucosal 06/30/2017 DX:Fibroids , submucosal Hypertension 05/31/2017 DX:Hypertension Seizure (CMS/HCC) 04/21/2018 DX:Seizure (HC C) Family History Medical History Relation Name Comments Arthritis Father Hypertension Mother Relation Name Status Comments Father Mother Social History Tobacco Use Types Packs/Day Years Used Date Smoking Tobacco: Never Smokeless Tobacco: Never Tobacco Cessation:Counseling Given: Not Answered Alcohol Use Standard Drinks/Week Comments No 0 (1 standard drink = 0.6 oz pur e alcohol) Sex and Gender Information Value Date Recorded Sex Assigned at Not on file Gender Identity Not on file Sexual Orientation Not on file Job Start Date Occupation Industry Not on file Not on file Not on file Obstetrics History Last Filed Vital Signs Vital Sign Reading Time Taken Comments Blood Pressure 132/88 07/31/2024 10:38 AM EST Pulse 100 07/31/2024 10:38 AM EST Temperature 36.2 ??C (97.1 ??F) 07/31/2024 10:[address] Respiratory Rate 16 07/31/2024 10:38 AM EST Oxygen Saturation 100% 07/16/2024 9:15 AM EST Inhaled Oxygen Concentration - - Weight 75.1 kg (165 lb 9.6 oz) 07/31/2024 10:38 AM EST Height 154.9 cm (5' 1 ) 07/16/2024 9:15 AM EST Body Mass Index 31.29 07/16/2024 9:15 AM EST Plan of Treatment Upcoming Encounters Date Type Department Care Team (Late st Contact Info) Description 10/15/2024 10:30 AM EDT Office Visit Pulmonolgy - [place] [address] [place] [phone] Zoie Chavis NP [address] [place] [address] Health Maintenance Due Date Last Done Comments Breast Cancer Screening 1983 Hepatitis B Vaccines (1 of 3 - 19+ 3-dose series) 2002 HIV Screening 07/10/2022 Hepatitis C Screening 07/10/2022 Social Influencers of Health Screening 07/10/2022 Hypertension/CHF/CAD Annual BMP Blood Test 03/07/2024 03/07/2023 Influenza Vaccine (#1) 2024 Cervical Cancer Screening: P ap Smear 03/07/2025 03/07/2022 Depression Screening 04/21/2025 04/21/2024 Cholesterol Screening (Lipid Panel) 03/07/2028 03/07/2023 DTaP,Tdap,and Td Vaccines (2 - Td or Tdap) 03/07/2033 03/07/2023 Pneumococcal Vaccine: Pediat rics (0 to 5 Years) and At-Risk Patients (6 to 64 Years) Completed 03/07/2023 COVID-19 Vaccine Discontinued HIB Vaccines Aged Out No longer eligi ble based on patient's age to complete this topic HPV Vaccines Aged Out No longer eligi ble based on patient's age to complete this topic Hepatitis A Vaccines Aged Out No long er eligible based on patient's age to complete this topic IPV Vaccines Aged Out No longer eligi ble based on patient's age to complete this topic MMR Vaccines Aged Out No longer eligi ble based on patient's age to complete this topic Meningococcal ACWY Vaccine Aged Out N o longer eligible based on patient's age to complete this topic RSV Immunization Patients Un yogi 20 months Aged Out No longer eligible b ased on patient's age to complete this topic Varicella Vaccines Aged Out No longer eligible based on patient's age to complete this topic Procedures Procedure Name Priority Date/Time Associated Diagnosis Comments DEPRESSION SCREENING Routine 04/21/2024 ANNUAL BMP BLOOD TEST Routine 03/07/2023 LIPID PANEL Routine 03/07/2023 PAP SMEAR Routine 03/07/2022 from Last 3 Months or Most Recently Relevant to Health Maintenance Results * Depression Screening (04/21/2024) [facility] Depression Screening Abstracted Historical Provider MD [place] * Annual BMP Blood Test (03/07/2023) [facility] Annual BMP Blood Test Abstracted Historical Provider MD [place] E * Lipid panel (03/07/2023) [facility] LDL/HDL Ratio 3 0 - 4 Triglycerides 91 0 - 150 mg/dL Cholesterol 155 0 - 200 mg/dL HDL 50 40 mg/dL LDL Cholesterol 87 0 - 100 mg/dL Blood Venous blood specimen / Unknown Historical Provider LAB BLOOD ORDERAB LES * Pap Smear (03/07/2022) [facility] Pap smear No interpretation , Abstracted Historical Provider MD FRENCH Joshi from Last 3 Months or Most Recently Relevant to Health Maintenance Care Teams Yard Hand Relationship Specialty Start Date End Date Federica Angel MD [address] [place] [address] [phone] PCP - General Internal Medicine 07/16/24
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
--- OUTSIDE RECORDS SUMMARY | 2024-09-03 17:20 | XMS_ITS | Encounter Summary ---
Author Organization [employer] Address [address] [place] [address] Care Team Providers Care Manager Operational Name Role Phone Federica Angel MD Primary Care Prov ider Reason for Visit * Consultation (Routine) - Authorized Specialty Diagnoses / Procedures Referred By Contac t Referred To Contact Physical Therapy Diagnoses Strain of right hamstring muscle, initial encounter Federica Angel MD [address] [place] [address] Referral ID Status Reason Start Date Expiration Date Visits Requested Visits Authorized [id number] Authorized Specialty Services Required 4 07/31/2025 21 21 Encounter Details Date Type Department Care Team (Latest Contact Info) Description 08/24/2024 10:00 AM EST Evaluation Outpatient Rehabilitation - [address] [phone] Dima Crisostomo, PT [address] [place] [address] Strain of right hamstring muscle, initial encounter Social History Tobacco Use Types Packs/Day Years [...] as of this encounter Progress Notes * Dima Crisostomo, PT - 08/24/2024 10:00 AM EST Pt came in and wishes to not have PT as she feels fine. Reports she attempted to call, but was unable to get through, so she came in person to ensure it was not a NS and we received the message. documented in this encounter Plan of Treatment Upcoming Encounters Date Type Department Care Team (Late st Contact Info) Description 10/15/2024 10:30 AM EDT Office Visit Pulmonolgy - [place] [address] [place] [address] Zoie Chavis NP [address] [facility] [address] [place] [address] documented as of this encounter Visit Diagnoses Diagnosis Strain of right hamstring muscle, initial encounter documented in this encounter Orders Outpatient Referral Count Last Ordered Date st Ordered Date AMB REFERRAL TO [facility] 08/24/2024 documented in this encounter Care Teams Manager Operational Relationship Specialty Start Date End Date Federica Angel MD [address] [place] [id number] PCP - General Internal Medicine 07/16/24 documented as of this encounter
[2024-09-03 20:03] VITALS: BP 187/115; PULSE 92; RESP 16; TEMP 36.9; O2SAT 100
[2024-09-03 21:30] LABS: Appearance Urine Clear; Color Urine Yellow; Glucose Urine UA Negative (Negative); Leukocyte Esterase Urine Negative (Negative); Nitrite Urine Negative (Negative); PH 5.5 (5.0-9.0); Specific Gravity - Urine 1.015 (1.005-1.025); UMIC TRIGGER UACC YES; Urine Blood Moderate (2+) (Negative); Urine Ketones Negative (Negative); Urine Protein Trace mg/dL (Neg-Trace)
[2024-09-03 21:39] LABS: Bacteria Urine None Seen (None Seen); Hyaline Casts Urine 0-2 /LPF (0-2); RBC Urine 0-2 /HPF (0-2); Squamous Epithelial Cell Urine 0-2 /HPF (0-2); WBC Urine 0-5 /HPF (0-5)
[2024-09-03] MEDS: Lidocaine HCl Viscous 2 % 15 ML SOLUTION MUCOUS MEM (22:32)
[2024-09-03] MEDS: Magnesium Hydrox/Alum Hydrox 30 ML ORAL.SUSP PO (22:32)
[2024-09-03] MEDS: Ondansetron ODT 4 MG TAB.RAPDIS TRANSLINGU (22:33)
[2024-09-03] MEDS: Loperamide HCl 2 MG CAPSULE PO (22:33)
--- NOTE | 2024-09-03 22:35 | PC.NURSE ---
Pt medicated per [facility] Plan of care ongoing.
[2024-09-03 22:40] LABS: UPreg QC Valid YES; Urine Pregnancy NEGATIVE (NEGATIVE)
[2024-09-03 23:17] VITALS: BP 187/115; PULSE 92; RESP 16; TEMP 36.9; O2SAT 100
== END 2024-09-03 23:19 | disposition home or self-care (01) ==
PROVIDERS: Physician Assistant; Emergency Provider Emergency Medicine; PCP Internal Medicine
DX: M62.838 Other muscle spasm (principal); M25.512 Pain in left shoulder; R11.0 Nausea; R07.89 Other chest pain; R10.13 Epigastric pain; Z79.899 Other long term (current) drug therapy
CPT/HCPCS: 36415; 80048; 80076; 81001; 81025; 83690; 83735; 84484; 85025; 85610; 93005; 99283; 99284

== ENCOUNTER → 2024-09-03 16:08 | Outpatient (BNV) | payer OTHER, SELFPAY | PROVIDERS: Emergency Provider Emergency Medicine; PCP Internal Medicine; Visit Provider Internal Medicine Cardiovascular Disease | DX: R07.9 Chest pain, unspecified (principal) | CPT/HCPCS: 93010 ==

== ENCOUNTER 2024-10-05 11:06 | Outpatient (AMB) | payer OTHER, SELFPAY ==
--- NOTE | 2024-10-05 11:08 | A.OFFVIS_ITS ---
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 Laundry Machine Mechanic Required: Yes Laundry Machine Mechanic Language: Layup Worker Services: Laundry Machine Mechanic Present (in person) Laundry Machine Mechanic Name: Suresh SMYTH Historical Site Guide: Historical Site Guide Present (Eliz) Accompanied by: Self / Same As Patient Allergies No Known Allergies Allergy (Verified 10/05/24 11:12) Medication List - Last Reconciled 10/05/24 by Melissa Salmeron CNM clotrimazole 1% 1 appful vaginal BEDTIME cyclobenzaprine 5 mg PO TID PRN folic acid PO hyoscyamine sulfate 0.125 mg PO QID PRN loperamide (Anti-Diarrheal (loperamide)) 2 mg PO Q4H PRN losartan 100 mg PO DAILY naproxen 500 mg PO BID PRN 10 days ondansetron HCl 4 mg PO Q6H PRN prednisone 20 mg PO DAILY sertraline 100 mg PO DAILY topiramate mg PO Is last menstrual period known: Yes Last menstrual period: 09/16/24 Post menopausal: No Patient : No HPI HPI HEAD CHEF annual exam: Details: 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 (patient was originally scheduled to be at the [facility] office and the reminder about the appointment told her to go there so that is where she went 1st and then she had to run up here. Patient is not having any associate field service engineer concerns at all. She says she is sexually active she is not contraceptive if she got she would continue the . She does know that she has high blood pressure and that she had preeclampsia as well in the past. She says she is on the same medication that she has been on for a while and that she has seen her primary doctor and she saw her primary doctor just about a week ago for stomach pain she was having. She is going to be having some studies to look into that but she says there was no discussion about changing her blood pressure medicine or anything. Of note most recent visits within the system show markedly elevated blood pressures and note from 2022 indicates the patient was on the same medication losartan. COUNT INCLUDES THE [facility] Medical History Hypertension History of HPV infection History of abnormal cervical Pap smear Cyst of uterus Asthma Anxiety Surgical History No history of previous surgery Family History Mother Nerve damage Social History Alcohol intake: never Patient : No Sexual orientation: Straight/Heterosexual Gender identity: Female Female Reproductive History Menstrual Age of Menarche: 10 Duration of menses: 6-7 days Date of last menstrual period: 09/16/24 Total pregnancies: 1 Full term: 1 Date of last pap smear: 09/15/23 (+hpv) History of abnormal pap smear: No Date of Mammogram: 08/30/23 (bi rad 1) History of abnormal mammogram: No Physical Exam Vital Signs: Last Vital Signs BP 162/110 H 10/05/24 11:15 BMI result Body Mass Index 31.6 Const General: healthy appearing, comfortable, no acute distress, well developed and alert Nutritional Appearance: average body habitus Orientation/consciousness: patient oriented x3 Limitations: no limitations HEENT Head: Yes normocephalic Neck Neck: Yes normal visual inspection Chest Chest palpation & inspection: normal inspection of the chest Breast/axilla inspection: normal inspection of the breasts and normal inspection of the axillae Breast/axilla palpation: normal palpation of the breasts and normal palpation of the axillae Resp Effort & Inspection: normal respiratory effort GI Inspection: Yes normal to inspection, No Abdominal wall edema and No distended Palpation (GI): Soft to palpation and nontender Other: External exam within normal limits vagina is pink and moist cervix appears pink smooth healthy appearing mobile normal. Cervix long close thick mobile nontender uterus mobile nontender adnexa nontender very good muscle tone.. General: Yes bladder normal to palpation External Female Exam: normal external appearance and normal appearance of the urethra Speculum Exam - Vagina: normal appearance of the vagina, normal palpation and normal vaginal discharge Speculum Exam - Cervix: normal appearance of the cervix, normal palpation and nontender Bimanual exam- vagina & uterus: normal bimanual exam, normal palpation, uterine size normal, bladder normal to palpation, consistency normal, normal palpation, uterine mobility normal, uterine shape normal, No Cervical tenderness present, non-tender and no cervical motion tenderness Bimanual Exam- Adnexa, other: normal adnexae, no masses, normal and No adnexal t enderness Neuro General: patient oriented x3 Assessment & Plan Assessment & Plan (1) History of abnormal cervical Pap smear: Comment: 06/02/21 pap= neg w neg hpv; 07/27/2023 Pap is pending, with positive HPV. (08/18- Pap has just come back nondiagnostic needs to be repeated...); 09/15/2023 Pap positive HPV, Pap is negative., repeat in 1 yr Code(s): Z87.42 - Personal history of other diseases of the female genital tract Category: Medical (2) History of HPV infection: Code(s): Z86.19 - Personal history of other infectious and parasitic diseases Category: Medical (3) History of pre-eclampsia: Code(s): Z87.59 - Personal history of other complications of , childbirth and the puerperium Category: Medical (4) Hypertension: Comment: Patient sees MD in [place] whose name she does not know. She is states she is on antihypertensive medicine but does not know the name and she takes it in the evening. Requested that patient call her primary a sap for a follow-up appointment... 07/27/2023 patient questioned at length with translation and she thinks that she is on losartan but she does not really know the name of it Code(s): I10 - Essential (primary) hypertension Category: Medical Plan Patient says that she was waiting for a reminder to schedule her mammogram and it did not come so she is going to stop by the mammogram place on her way out of the hospital to make her appointment for the Majority of this visit was spent discussing her blood pressure. She is not having any symptoms of her blood pressure and in fact she has had elevated blood pressures for a very long time and she says she has been on the same medication and she said there has been no discussion of changing it. I also discussed with her that it was dangerous to her health to consider not contraceptive thing with at least condoms with this elevated a blood pressure. She says that she was told that it was impossible to get on her the blood pressure measure this and I told her that it was more like it would not be good for her health or for the fetus's health to get on this medication, and that it is not a contraceptive by any stretch of the imagination. I recommend that at the very least she use condoms and if she finds them irritating she should lose lubrication but it really really really would not be good for her or anyone's health for her to conceive with this elevated a blood pressure or on this medication. Repeat blood pressure at the end of the visit was exactly the same. In order to be very sure that there was no misunderstanding about her high blood pressure and the medication she was taking the rest of the visit was continued with translation assistance by suresh Harris. I re-emphasized the risks of her elevated blood pressure and we asked her to please call her primary care doctor and arrange for an appointment soon but to call her doctor today about her high blood pressure. In addition she had neglected to take her medicine this morning because she was dealing with an issue with her 16-year-old daughter who did not want to go to school so she is going to go straight home and take her medication now. Discussed that the risk of getting at this age was real and higher in the face of high blood pressure. In addition would not be recommended to somebody taking this blood pressure because of the risks of anomalies./problems I discussed with the patient that if she was interested in a there were medications that could be prescribed for her elevated blood pressure but she would have to talk to her doctor about these. She should have an honest an upfront discussion. She shared that she is not interested in getting . So then we turned to options for management of contraception that would have no effect on her blood p ressure. Discussed in particular the options of the Mirena IUD or ParaGard IUD. She already has heavy periods so she would prefer the Mirena IUD and she is in fact interested in it and we gave her a brochure in Polish to read about this discussed that I would want to insert the IUD at the beginning of her. So she decides that she wants to have a Mirena inserted she should call at the very beginning of her periods so we can schedule it. Discussed also the other things that can raise blood pressure likes stress running late being upset with her teenage child or having ones provider go on and on about blood pressure issues. However we want the best for her. She promises to call her doctor soon and she is going to take her medicine as soon as she goes home, and she will consider the Mirena IU S send in the meantime use condoms. RTC for annual exam Patient may call for Mirena at the beginning of a menses Patient will be contacting her primary care provider today Patient will be scheduling her mammogram which is previously ordered Orders: Orders Pap Smear Today Z01.419 - Encounter for gynecological examination (general) (routine) without abnormal findings HPV High risk Today Z01.419 - Encounter for gynecological examination (general) (routine) without abnormal findings CT NG by PCR Today Z01.419 - Encounter for gynecological examination (general) (routine) without abnormal findings Bacterial Vaginosis Panel Today Z01.419 - Encounter for gynecological examination (general) (routine) without abnormal findings Coding Level of Care Code Est Pt Prev Care 40-64y([address]191) Diagnoses History of abnormal cervical Pap smear Z87.42 History of HPV infection Z86.19 History of pre-eclampsia Z87.59 Hypertension I10
[2024-10-05 11:15] VITALS: BP 162/110; BMI 31.6
--- OUTSIDE RECORDS SUMMARY | 2024-10-05 12:52 | XMS_ITS | Encounter Summary ---
Author Organization [employer] Address [address] [place] [address] Care Team Providers Care Digital Print Operator Name Role Phone Federica Angel MD Primary Care Prov ider Reason for Referral * Consultation (Routine) - Authorized Specialty Diagnoses / Procedures Referred By Contac t Referred To Contact Gastroenterology Diagnoses Epigastric abdominal pain Microcytic anemia Jaqueline Garcia PA [address] [place], [place] Phone: tel: fax: Gastroenterology - [address] [address] Phone: tel: fax: Referral ID Status Reason Start Date Expiration Date Visits Requested Visits Authorized [id number] Authorized Specialty Services Required 09/14/2024 09/14/2025 1 1 * Imaging (Routine) - Pending Review Specialty Diagnoses / Procedures Referred By Contac t Referred To Contact Radiology Diagnoses Epigastric abdominal pain Procedures US Abdomen Complete Jaqueline Garcia PA [address] [place], [place] Phone: tel: fax: [facility] [address] Phone: tel: Referral ID Status Reason Start Date Expiration Date V isits Requested Visits Authorized [id number] Pending Review 09/14/2024 09/14/2025 1 1 Reason for Visit * Reason Comments ER Follow up Seen at [facility], abdomin al pain. Encounter Details Date Type Department Care Team (Late st Contact Info) Description 09/14/2024 10:00 AM EST Office Visit Adult Medicine [facility] [address] [place] [address] Jaqueline Garcia PA [address] [place], [place] Epigastric abdominal pain (Primary Dx); Microcytic anemia; Primary hypertension Social History Tobacco Use Types Packs/Day Years Used Date Smoking Tobacco: Never Smokeless Tobacco: Never Tobacco Cessation:Counseling Given: Not Answered Alcohol Use Standard Drinks/Week Comments No 0 (1 standard drink = 0.6 oz pur e alcohol) Comments No Sex and Gender Information Value Date Recorded Sex Assigned at Not on file Legal Sex Female 2:07 AM EST Gender Identity Not on file Sexual Orientation Not on file documented as of this encounter Last Filed Vital Signs Vital Sign Reading Time Taken Comments Blood Pressure 143/87 09/14/2024 9:59 AM EST Pulse 83 09/14/2024 9:59 AM EST Temperature 36.8 ??C (98.2 ??F) 09/14/2024 9:59 AM ES T Respiratory Rate 16 09/14/2024 9:59 AM EST Oxygen Saturation - - Inhaled Oxygen Concentration - - Weight 74.7 kg (164 lb 9.6 oz) 09/14/2024 9:59 A M EST Height 160 cm (5' 3 ) 09/14/2024 9:59 AM EST Body Mass Index 29.16 09/14/2024 9:59 AM EST documented in this encounter Ordered Prescriptions Prescription Sig Dispense Quantity Refills Last Filled Start Date End Date ferrous sulfate 325 mg (65 mg iron) EC tablet Take 1 tablet (325 mg total) by mouth 1 (one) time each day with breakfast. Do not crush, chew, or split. 30 each 5 09/14/2024 hyoscyamine (ANASPAZ,LEVSIN) 0.125 mg tablet Take 1 tablet (0.125 mg total) by mouth every 4 (four) hours if needed for cramping for up to 10 days. 40 tablet 09/14/2024 documented in this encounter Progress Notes * FANG Paredes - 09/14/2024 10:00 AM EST CHIEF COMPLAINT: ER Follow up (Seen at [facility], abdominal pain. ) IDENTIFIER: Kristi Thomason is a 39 y.o. old female. HPI: Patient is a 39-year-old female who presents to the office today for ER follow- up. 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 She presented to [facility] ER on 09/03/2024 complaining ofepigastric abdominal pain which started the day prior. She also complained of left shoulder pain, mostly over the suprascapular area. Labs were unremarkable including CMP, troponin, lipase, urinalysis. She has microcytic anemia with H&H 9.4/30.6, MCV 72.2. EKG nonischemic. She was prescribed hyoscyamine as needed, Flexeril as needed. She has been taking the hyoscyamine which has been helping.She mostly notices the epigastric abdominal pain after eating. She denies reflux, bloating. She does not have heavy menstrual cycles. The left shoulder pain improved. ROS: GENERAL: No malaise, significant weight loss or fever RESPIRATORY: No cough, wheezing or shortness of breath CARDIOVASCULAR: No chest pain, leg swelling or palpitations GI: See HPI : No dysuria, frequency or incontinence NEURO: No persistent headache PAST MEDICAL HISTORY: Patient Active Problem List Diagnosis Date Noted Moderate obstructive sleep apnea-hypopnea syndrome 07/14/2023 Asthma 04/21/2018 Complex cyst of right ovary 06/30/2017 Fibroids, submucosal 06/30/2017 Hypertension 05/31/2017 No past surgical history on file. SOCIAL HISTORY: Social History Tobacco Use Smoking status: Never Smokeless tobacco: Never Substance Use Topics Alcohol use: No FAMILY HISTORY: Family History Problem Relation Name Age of Onset Arthritis Father Hypertension Mother MEDICATIONS DISCONTINUED/REORDERED: There are no discontinued medications. ACTIVE MEDICATIONS: Outpatient Medications Marked as Taking for the 09/14/24 encounter (Office Visit) with FANG Paredes Medication Sig Dispense Refill amLODIPine (NORVASC) 10 mg tablet Take 1 tablet (10 mg total) by mouth 1 (one) time each day. Arnuity Ellipta 100 mcg/actuation blister with device inhaler Inhale 1 puff by mouth 1 (one) time each day. Rinse mouth after use. 1 each 3 fluticasone propionate (FLONASE) 50 mcg/actuation nasal spray Administer 2 sprays into each nostril1 (one) time each day. Shake gently. Before first use, prime pump. After use, clean tip and replacecap. 16 g 3 losartan (COZAAR) 100 mg tablet Take 1 tablet (100 mg total) by mouth 1 (one) time each day. sertraline (ZOLOFT) 100 mg tablet Take 1 tablet (100 mg total) by mouth 1 (one) time each day. SUMAtriptan (IMITREX) 50 mg tablet Ventolin HFA 90 mcg/actuation inhaler INHALE 2 PUFFS INTO THE LUNGS EVERY 6 HOURS NEEDED FOR COUGH OR WHEEZING. 18 each 6 ALLERGIES: No Known Allergies PHYSICAL EXAM: Blood pressure (!) 143/87, pulse 83, temperature 36.8 ??C (98.2 ??F), temperature source Temporal, resp. rate 16, height 1.6 m (63 ), weight 74.7 kg (164 lb 9.6 oz). Body mass index is 29.16 kg/m??. BMI is greater than 25.0 (above the normal range) - see Plan APPEARANCE: Alert and in no acute distress HEART: RRR with normal S1 and S2, no murmurs, no gallops LUNG: Clear to auscultation ABDOMEN: Bowel sounds normoactive, soft, non-tender, without organomegaly or palpable masses EXTREMITIES: No edema NEURO: Awake, alert LABS: Reviewed ER labs IMAGING: Ordered IMPRESSION/PLAN: 1. Epigastric abdominal pain US Abdomen Complete Ambulatory referral to Gastroenterology 2. Microcytic anemia Iron and TIBC Ambulatory referral to Gastroenterology 3. Primary hypertension Medication and lab orders: Orders Placed This Encounter Procedures US Abdomen Complete Iron and TIBC Ambulatory referral to Gastroenterology Other orders: US ABDOMEN COMPLETE AMB REFERRAL TO GASTROENTEROLOGY Epigastric abdominal pain after eating. Patient mostly notices the pain after eating fatty foods. Encourage patient to avoid eating fatty foods, fast food. Will order ultrasound for further evaluation. Will also refer to gastroenterology. Refilled hyoscyamine which was helpful. 2. Microcytic anemia, iron studies ordered. Prescribed iron supplement. She denies heavy menstrual cycles. Refer to gastroenterology given anemia, GI complaints. 3. Blood pressure is elevated today. She did not take her medication this morning. Follow-up in 2 weeks for BP recheck. Advised the patient to call me if any problems. Patient understands the plan. Patient is in agreement with the plan. Today's documentation was made using voice recognition software.This note may contain grammatical errors secondary to this software. Jaqueline Garcia PA-C documented in this encounter Plan of Treatment Upcoming Encounters Date Type Department Care Team (Late st Contact Info) Description 10/15/2024 10:30 AM EDT Office Visit Pulmonolgy - [place] [address] [place] [address] Zoie Chavis NP [address] [place] [address] 10/18/2024 9:20 AM EDT Office Visit Gastroenterology - [address] [facility] [address] [place] [address] Carolina Adame NP [address] [facility] [address] [place] [address] Scheduled Orders Name Type Priority Associated Diagnoses Orde r Schedule Iron and TIBC Lab Routine Microcytic anemia 1 Occurrences starting 09/14/2024 until 09/14/2025 Scheduled Referrals Name Type Priority Associated Diagnoses Order Schedule Ambulatory referral to Gastroenterology Outpatient Referral Routine Epigastric abdominal pain Microcytic anemia 1 Occurrences starting 09/14/2024 until 09/14/2025 documented as of this encounter Results * US Abdomen Complete (09/24/2024 9:25 AM EST) Anatomical Region Laterality Modality Body Ultrasound 09/24/2024 9:50 AM EST Impressions 09/24/2024 9:52 AM EST Cholelithiasis. -------- FINAL REPORT -------- Dictated By: Starr Argueta Dictated Date: 09/24/2024 09:50 ET Assigned Physician: Starr Argueta Reviewed and Electronically Signed By: Starr Argueta Signed Date: 09/24/2024 09:52 ET Workstation ID: [id number] Transcribed By: Self Edit Transcribed Date: 09/24/2024 09:50 ET Narrative 09/24/2024 9:52 AM EST ABDOMINAL ULTRASOUND History: ??Epigastric abdominal pain after eating. Comparison: None. FINDINGS: There are 2 mobile gallstones, and these each measure 4 mm in diameter. The common bile duct is not dilated, measuring 4 mm. ??The gallbladder wall is not thickened. No pericholecystic fluid is seen. No ascites are seen. The visualized pancreas is normal in size and demonstrates normal echotexture. The liver measures 12.4 cm length and demonstrates normal echotexture. No focal lesions are seen in the liver and there is no evidence of intrahepatic ductal dilation. Normal hepatopedal flow is seen in the main portal vein. No evidence of hydronephrosis, mass, or calculus was seen in either kidney. ??The right kidney measures 10.2 cm in greatest length. ??The left kidney measures 11.3 ??cm in length. The spleen measures 10.8 cm in length. The visualized abdominal aorta and IVC are unremarkable. Procedure Note Starr Argueta MD - 09/24/2024 ABDOMINAL ULTRASOUND History: Epigastric abdominal pain after eating. Comparison: None. FINDINGS: There are 2 mobile gallstones, and these each measure 4 mm indiameter. The common bile duct is not dilated, measuring 4 mm. Thegallbladder wall is not thickened. No pericholecystic fluid is seen. Noascites are seen. The visualized pancreas is normal in size and demonstrates normalechotexture. The liver measures 12.4 cm length and demonstrates normal echotexture. Nofocal lesions are seen in the liver and there is no evidence ofintrahepatic ductal dilation. Normal hepatopedal flow is seen in the mainportal vein. No evidence of hydronephrosis, mass, or calculus was seen in eitherkidney. The right kidney measures 10.2 cm in greatest length. The leftkidney measures 11.3 cm in length. The spleen measures 10.8 cm in length. The visualized abdominal aorta and IVC are unremarkable. IMPRESSION: Cholelithiasis. -------- FINAL REPORT -------- Dictated By: Starr Argueta Dictated Date: 09/24/2024 09:50 ET Assigned Physician: Starr Argueta Reviewed and Electronically Signed By: Starr Argueta Signed Date: 09/24/2024 09:52 ET Workstation ID: [id number] Transcribed By: Self Edit Transcribed Date: 09/24/2024 09:50 ET us Jaqueline Jose HEADLEY IMG US PROCEDURES Final Result documented in this encounter Visit Diagnoses Diagnosis Epigastric abdominal pain- Primary Abdominal pain, epigastric Microcytic anemia Unspecified iron deficiency anemia Primary hypertension Unspecified essential hypertension Epigastric abdominal pain Abdominal pain, epigastric documented in this encounter Care Teams Digital Print Operator Relationship Specialty Start Date End Date Federica Angel MD [address] [place] [phone] PCP - General Internal Medicine 07/16/24 documented as of this encounter
--- OUTSIDE RECORDS SUMMARY | 2024-10-05 12:52 | XMS_ITS | Encounter Summary ---
Author Organization [employer] Address [address] [place] [address] Care Team Providers Care Cork Tipper Name Role Phone Federica Angel MD Primary Care Prov ider Reason for Visit * Reason Onset Date Comments er follow up 09/12/2024 Encounter Details Date Type Department Care Team (Late st Contact Info) Description 09/12/2024 Telephone Adult Medicine [address] [address] Federica Angel MD [address] [place] [address] [phone] er follow up Social History Tobacco Use Types Packs/Day Years [...] as of this encounter Progress Notes * Tania Simpson RN - 09/13/2024 9:16 AM EST Using drawing operator Kamini ER follow up made for tomorrow 09/14 . pt. Instructed to call if any concerns prior to appt. * Yue Acosta - 09/12/2024 4:56 PM EST I was informed that wasn't a APPT slot had to cancel it. * Mela Loomis RN - 09/12/2024 9:43 AM EST She is scheduled for follow up 09/13 * Yue Acosta - 09/12/2024 9:16 AM EST Hospital/ER follow up appointment needed Hospital patient was treated at: [facility] Was this only an ER visit or was the patient admitted to the hospital? ER Visit only Date of visit if ER visit only: 09/03/24 If patient was admitted what was the date of discharge? Reason/diagnosis for visit or stay: pain in abdomin and shoulder When was the patient told to follow up? vern Was visit or stay related to an injury? If yes, what was the date of injury (DOI)? No If yes, was the injury due to: Not 3rd constitution party related documented in this encounter Plan of Treatment Upcoming Encounters Date Type Department Care Team (Late st Contact Info) Description 10/15/2024 10:30 AM EDT Office Visit Pulmonolgy - [place] [address] [place] [phone] Zoie Chavis NP [address] [place] [address] 10/18/2024 9:20 AM EDT Office Visit Gastroenterology - [address] [place] [phone] Carolina Adame NP [address] [address] documented as of this encounter Visit Diagnoses Not on filedocumented in this encounter Care Teams Cork Tipper Relationship Specialty Start Date End Date Federica Angel MD [address] [place] [phone] PCP - General Internal Medicine 07/16/24 documented as of this encounter
--- OUTSIDE RECORDS SUMMARY | 2024-10-05 12:52 | XMS_ITS | Encounter Summary ---
Author Organization [employer] Address [address] [place] [address] Care Team Providers Care Head Porter Name Role Phone Federica Angel MD Primary Care Prov ider Reason for Visit * Reason Onset Date Comments information needed 09/20/2024 Encounter Details Date Type Department Care Team (Late st Contact Info) Description 09/20/2024 Telephone Adult Medicine [address] [phone] Federica Angel MD [address] [place] [phone] information needed Social History Tobacco Use Types Packs/Day Years [...] as of this encounter Progress Notes * Jhoana Briggs MA - 09/21/2024 2:14 PM EST Copy of form printed and placed in [facility], called patient and she is aware. 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 * Alexandra Adame - 09/20/2024 4:11 PM EST Pt is requesting a copy of her form from 07/12/2024. [facility] Please contact pt when it is ready for molded goods spot picker. documented in this encounter Plan of Treatment Upcoming Encounters Date Type Department Care Team (Late st Contact Info) Description 10/15/2024 10:30 AM EDT Office Visit Pulmonolgy - [place] [address] [place] [address] Zoie Chavis NP [address] [place] [address] 10/18/2024 9:20 AM EDT Office Visit Gastroenterology - [address] [place] [address] Carolina Adame NP [address] [place] [address] documented as of this encounter Visit Diagnoses Not on filedocumented in this encounter Care Teams Head Porter Relationship Specialty Start Date End Date Federica Angel MD [address] [place] [phone] PCP - General Internal Medicine 07/16/24 documented as of this encounter
--- OUTSIDE RECORDS SUMMARY | 2024-10-05 12:52 | XMS_ITS | Clinical Summary ---
Author Organization [address] [facility] Address [address] [place] [address] Phone Care Team Providers Care Infrastructure Administrator Name Role Phone Federica Angel MD Primary Care Prov ider Allergies No known active allergies Medications losartan (COZAAR) 100 mg tablet Take 1 tablet (100 mg total) by mouth 1 (one) time each day. 4 Active amLODIPine (NORVASC) 10 mg tablet Take 1 tablet (10 mg total) by mouth 1 (one) time each day. 4 Active SUMAtriptan (IMITREX) 50 mg tablet 3 Active Ventolin HFA 90 mcg/actuation inhalerIndication s:Mild persistent asthma, uncomplicated INHALE 2 PUFFS INTO THE LUNGS EVERY 6 HOURS NEEDED FOR COUGH OR WHEEZING. 18 each 6 4 Active sertraline (ZOLOFT) 100 mg tablet Take 1 tablet (100 mg total) by mouth 1 (one) time each day. Active fluticasone propionate (FLONASE) 50 mcg/actuation nasal sprayIndications: Mild persistent asthma without complication,Heraclio rgic rhinitis, unspecified seasonality, unspecified trigger Administer 2 sprays into each nostril 1 (one) time each day. Shake gently. Before first use, prime pump. After use, clean tip and replace cap. 16 g 3 4 Active Arnuity Ellipta 100 mcg/actuation blister with device inhalerIndication s:Mild persistent asthma without complication Inhale 1 puff by mouth 1 (one) time each day. Rinse mouth after use. 1 each 3 4 025 Active ferrous sulfate 325 mg (65 mg iron) EC tablet Take 1 tablet (325 mg total) by mouth 1 (one) time each day with breakfast. Do not crush, chew, or split. 30 each 5 5 Active hyoscyamine (ANASPAZ,LEVSIN) 0.125 mg tablet Take 1 tablet (0.125 mg total) by mouth every 4 (four) hours if needed for cramping for up to 10 days. 40 tablet 5 025 Active Problems Problem Noted Date Diagnosed Date Moderate obstructive sleep apnea-hypopnea syndro me 07/14/2023 Overview (06/11/2024): [facility] Home Sleep Apnea Test: Date 06/06/2023 ; [...] Encounters Date Type Department Care Team Description 10/02/2024 Telephone Adult Medicine [address] [phone] Federica Wray MD Forms/questionnaires (DMV from June of 2024) 09/24/2024 8:40 AM EST - 09/24/2024 11:59 PM EST Hospital Encounter Radiology Department - [address] [phone] Epigastric abdominal pain Discharge Disposition: Home or Self Care 09/20/2024 Telephone Adult [address] [phone] Federica Wray MD information needed 09/14/2024 10:00 AM EST Office Visit Adult [address] [phone] Jaqueline Garcia PA Epigastric abdominal pain (Primary Dx); Microcytic anemia; Primary hypertension 09/12/2024 Telephone Adult [address] [phone] Federica Wray MD er follow up 09/03/2024 Telephone Adult [address] [phone] Federica Wray MD Shoulder Pain (left); Abdominal Pain (Upper middle ) 08/24/2024 10:00 AM EST Evaluation Outpatient Rehabilitation [address] [phone] Dima Crisostomo, PT Strain of right hamstring muscle, initial encounter 07/31/2024 11:15 AM EST Office Visit Adult [address] [phone] Federica Wray MD Primary hypertension (Primary Dx); Moderate obstructive sleep apnea-hypopnea syndrome; Mild intermittent asthma without complication; Anxiety; Strain of right hamstring muscle, initial encounter 07/16/2024 8:50 AM EST Office Visit Pulmonolgy [facility] [address] [facility] [address] [place] [address] Zoie Chavis NP Mild persistent asthma without complication (Primary Dx); Allergic rhinitis, unspecified seasonality, unspecified trigger; Moderate obstructive sleep apnea-hypopnea syndrome; Hypertension, unspecified type; Obesity (BMI 30-39.9) from Last 3 Months Immunizations Name Administration [...] on file Sexual Orientation Not on file Obstetrics History Last Filed Vital Signs Vital Sign Reading Time Taken Comments Blood Pressure 143/87 09/14/2024 9:59 AM EST Pulse 83 09/14/2024 9:59 AM EST Temperature 36.8 ??C (98.2 ??F) 09/14/2024 9:59 AM ES T Respiratory Rate 16 09/14/2024 9:59 AM EST Oxygen Saturation 100% 07/16/2024 9:15 AM EST Inhaled Oxygen Concentration - - Weight 74.7 kg (164 lb 9.6 oz) 09/14/2024 9:59 A M EST Height 160 cm (5' 3 ) 09/14/2024 9:59 AM EST Body Mass Index 29.16 09/14/2024 9:59 AM EST Plan of Treatment Upcoming Encounters Date Type Department Care Team (Late st Contact Info) Description 10/15/2024 10:30 AM EDT Office Visit Pulmonolgy - [place] [address] [place] [address] Zoie Chavis, [place] [address] [place] [address] 10/18/2024 9:20 AM EDT Office Visit Gastroenterology - [address] [facility] [address] [place] [address] Carolina Adame NP [address] [facility] [address] [place] [address] Health Maintenance Due Date Last Done Comments [...] patient's age to complete this topic Meningococcal B Vacine Aged Out No lo nger eligible based on patient's age to complete this topic RSV Immunization Patients Un yogi 20 months Aged Out No longer eligible b ased on patient's age to complete this topic Varicella Vaccines Aged Out No longer eligible based on patient's age to complete this topic Procedures Procedure Name Priority Date/Time Associated Diagnosis Comments US ABDOMEN COMPLETE Routine 09/24/2024 9 :25 AM EST Epigastric abdominal pain DEPRESSION SCREENING Routine 04/21/2024 ANNUAL BMP BLOOD TEST Routine 03/07/2023 LIPID PANEL Routine 03/07/2023 PAP SMEAR Routine 03/07/2022 from Last 3 Months or Most Recently Relevant to Health Maintenance Results * US Abdomen Complete (09/24/2024 9:25 AM EST) Anatomical Region Laterality Modality Body Ultrasound 09/24/2024 9:50 AM EST Impressions 09/24/2024 9:52 AM EST Cholelithiasis. -------- FINAL REPORT -------- Dictated By: Starr Argueta Dictated Date: 09/24/2024 09:50 ET Assigned Physician: Starr Argueta Reviewed and Electronically Signed By: Starr Argueta Signed Date: 09/24/2024 09:52 ET Workstation ID: [id number] Transcribed By: Self Edit Transcribed Date: 09/24/2024 [...] Signed Date: 09/24/2024 09:52 ET Workstation ID: [id number] Transcribed By: Self Edit Transcribed Date: 09/24/2024 09:50 ET us Jaqueline Garcia PA IMG US PROCEDURES Final Result * Depression Screening (04/21/2024) Pathologist [facility] Depression Screening Abstracted Historical Provider HEALTH MAINTENANCE Final Result * Annual BMP Blood Test (03/07/2023) Pathologist [facility] Annual BMP Blood Test Abstracted Historical Provider HEALTH MAINTENANCE Final Result * Lipid panel (03/07/2023) [facility] LDL/HDL Ratio 3 0 - 4 Triglycerides 91 0 - 150 mg/dL Cholesterol 155 0 - 200 mg/dL HDL 50 >=40 mg/dL LDL Cholesterol 87 0 - 100 mg/dL Blood Venous blood specimen / Unknown Result [facility] Historical Provider LAB BLOOD ORDERABLES Mily l Result * Pap Smear (03/07/2022) Pathologist [facility] Pap smear No interpretation , Abstracted Result [facility] Historical Provider HEALTH MAINTENANCE Final Result from Last 3 Months or Most Recently Relevant to Health Maintenance [place] [address] [place] [address] [place] [address] Care Teams Infrastructure Administrator Relationship Specialty Start Date End Date Federica Angel MD [address] [place] [id number] PCP - General Internal Medicine 07/16/24
--- OUTSIDE RECORDS SUMMARY | 2024-10-05 12:52 | XMS_ITS | Encounter Summary ---
Author Organization [employer] Address [address] [place] [address] Care Team Providers Care Road Engineer Name Role Phone Federica Angel MD Primary Care Prov ider Reason for Referral * Imaging (Routine) - Pending Review Specialty Diagnoses / Procedures Referred By Contac t Referred To Contact Radiology Diagnoses Epigastric abdominal pain Procedures US Abdomen Complete Jaqueline Garcia PA [address] [place] [address] Phone: tel: fax: [address] Phone: tel: Referral ID Status Reason Start Date Expiration Date V isits Requested Visits Authorized [id number] Pending Review 09/14/2024 09/14/2025 1 1 Reason for Visit * Imaging (Routine) - Pending Review Specialty Diagnoses / Procedures Referred By Contac t Referred To Contact Radiology Diagnoses Epigastric abdominal pain Procedures US Abdomen Complete Jaqueline Garcia PA [address] [place] [address] Phone: tel: fax: [address] Phone: tel: Referral ID Status Reason Start Date Expiration Date V isits Requested Visits Authorized [id number] Pending Review 09/14/2024 09/14/2025 1 1 Encounter Details Date Type Department Care Team (Latest Contact Info) Description 09/24/2024 8:40 AM EST - 09/24/2024 11:59 PM EST Hospital Encounter Radiology Department - [address] [phone] Epigastric abdominal pain Discharge Disposition: Home or Self Care Social History Tobacco Use Types Packs/Day Years [...] on file documented as of this encounter Medications at Time of Discharge amLODIPine (NORVASC) 10 mg tablet Take 1 tablet (10 mg total) by mouth 1 (one) time each day. 04/20/2024 Arnuity Ellipta 100 mcg/actuation blister with device inhalerIndications: Mild persistent asthma without complication Inhale 1 puff by mouth 1 (one) time each day. Rinse mouth after use. 1 each 3 07/16/2024 ferrous sulfate 325 mg (65 mg iron) EC tablet Take 1 tablet (325 mg total) by mouth 1 (one) time each day with breakfast. Do not crush, chew, or split. 30 each 5 09/14/2024 fluticasone propionate (FLONASE) 50 mcg/actuation nasal sprayIndications:Mi ld persistent asthma without complication,Allerg ic rhinitis, unspecified seasonality, unspecified trigger Administer 2 sprays into each nostril 1 (one) time each day. Shake gently. Before first use, prime pump. After use, clean tip and replace cap. 16 g 3 07/16/2024 losartan (COZAAR) 100 mg tablet Take 1 tablet (100 mg total) by mouth 1 (one) time each day. 04/20/2024 sertraline (ZOLOFT) 100 mg tablet Take 1 tablet (100 mg total) by mouth 1 (one) time each day. SUMAtriptan (IMITREX) 50 mg tablet 06/14/2023 Ventolin HFA 90 mcg/actuation inhalerIndications: Mild persistent asthma, uncomplicated INHALE 2 PUFFS INTO THE LUNGS EVERY 6 HOURS NEEDED FOR COUGH OR WHEEZING. 18 each 6 07/12/2024 documented as of this encounter Discharge Disposition Disposition Code Departure Means Destination Home or Self Care documented in this encounter Plan of Treatment Upcoming Encounters Date Type Department Care Team (Late st Contact Info) Description 10/15/2024 10:30 AM EDT Office Visit Pulmonolgy - [place] [address] [place] [address] Zoie Chavis NP [address] [facility] [address] [place] [address] 10/18/2024 9:20 AM EDT Office Visit Gastroenterology - [address] [facility] [address] [place] [address] Carolina Adame NP [address] [place] [address] documented as of this encounter Procedures Procedure Name Priority Date/Time Associated Diagnosis Comments US ABDOMEN COMPLETE Routine 09/24/2024 9 :25 AM EST Epigastric abdominal pain documented in this encounter Results * US Abdomen Complete (09/24/2024 9:25 AM EST) Anatomical Region Laterality Modality Body Ultrasound 09/24/2024 9:50 AM EST Impressions 09/24/2024 9:52 AM EST Cholelithiasis. -------- FINAL REPORT -------- Dictated By: Starr Argueta Dictated Date: 09/24/2024 09:50 ET Assigned Physician: Starr Argueta Reviewed and Electronically Signed By: Starr Argueta Signed Date: 09/24/2024 09:52 ET Workstation ID: [id number] Transcribed By: Self Edit Transcribed Date: 09/24/2024 [...] Signed Date: 09/24/2024 09:52 ET Workstation ID: [id number] Transcribed By: Self Edit Transcribed Date: 09/24/2024 09:50 ET us Jaqueline Jose HEADLEY IMG US PROCEDURES Final Result documented in this encounter Visit Diagnoses Diagnosis Epigastric abdominal pain Abdominal pain, epigastric documented in this encounter Care Teams Road Engineer Relationship Specialty Start Date End Date Federica Angel MD [address] [place] [address] PCP - General Internal Medicine 07/16/24 documented as of this encounter
--- OUTSIDE RECORDS SUMMARY | 2024-10-05 12:52 | XMS_ITS | Encounter Summary ---
Author Organization [employer] Address [address] [place] [address] Care Team Providers Care Sales Service Coordinator Name Role Phone Federica Angel MD Primary Care Prov ider Reason for Visit * Reason Onset Date Comments Forms/questionnaires 10/02/2024 DMV from 2023 Encounter Details Date Type Department Care Team (Late st Contact Info) Description 10/02/2024 Telephone Adult Medicine [address] [phone] Federica Angel MD [address] [place] [address] Forms/questionnaires (DMV from June of 2024) Social History Tobacco Use Types Packs/Day Years [...] as of this encounter Progress Notes * Cee Cochran MA - 10/03/2024 12:49 PM EST Form mailed. * Sharon Cuevas - 10/03/2024 11:08 AM EST CRISTIANO received to mail form. * Cecil Mata - 10/02/2024 2:30 PM EST Called and spoke with patient advising her to come in to fill out a new CRISTIANO for the request listed below. Patient states she will come in on 10/03/24 to do so. * Sheryl Nina MA - 10/02/2024 12:29 PM EST DID SHE SIGN A NEW CRISTIANO? REFLECTING THIS REQUEST * Cecil Mata - 10/02/2024 10:42 AM EST Patient came in today and is requesting DMV form from 06/22/24 be mailed to [place] [employer] [address] [address] [place] [address] due to being advised by the DMV to do so because of a flag on the patients account with them. Without this flag being removed the patient will not be able to drive. documented in this encounter Plan of Treatment Upcoming Encounters Date Type Department Care Team (Late st Contact Info) Description 10/15/2024 10:30 AM EDT Office Visit Pulmonolgy - [place] [address] [place] [phone] Zoie Chavis NP [address] [place] [address] 10/18/2024 9:20 AM EDT Office Visit Gastroenterology - [address] [place] [address] Carolina Adame, FRONTLOAD DRIVER [address] [address] documented as of this encounter Visit Diagnoses Not on filedocumented in this encounter Care Teams Sales Service Coordinator Relationship Specialty Start Date End Date Federica Angel MD [address] [place] [address] PCP - General Internal Medicine 07/16/24 documented as of this encounter
--- OUTSIDE RECORDS SUMMARY | 2024-10-05 12:52 | XMS_ITS | Clinical Summary ---
Author Organization [facility] Address [address] [place] [address] Care Team Providers Care Residential Carpenter Name Role Phone Waldemar Fournier MD Primary Care Provider [phone] Allergies No known active allergies Medications Medication [...] age to complete this topic Care Teams Residential Carpenter Relationship Specialty Start Date End Date Waldemar Fournier MD PCP - General Internal Medicine 08/04/21
--- OUTSIDE RECORDS SUMMARY | 2024-10-05 12:52 | XMS_ITS | Encounter Summary ---
Author Organization [employer] Address [address] [place] [address] Care Team Providers Care Farm Worker Name Role Phone Federica Angel MD Primary Care Prov ider Encounter Details Date Type Department Care Team (Late st Contact Info) Description 05/04/2024 4:13 PM EDT Hospital Encounter TH HISTORIC ENCOUNTERS EASTERN CONVERSION ONLY Federica Angel MD [address] [place] [address] Social History Tobacco Use Types Packs/Day Years [...] Description 10/15/2024 10:30 AM EDT [facility] [address] [place] [address] Zoie Chavis NP [address] [place] [address] 10/18/2024 9:20 AM EDT Office Visit Gastroenterology - [address] [facility] [address] [address] Carolina Adame, AUTOMATION CONSULTANT [address] [address] documented as of this encounter Visit Diagnoses Not on filedocumented in this encounter Care Teams Farm Worker Relationship Specialty Start Date End Date Federica Angel MD PCP - General 06/17/22 07/15/24 documented as of this encounter
== END 2024-10-05 13:37 | disposition home or self-care (01) ==
LOC: HO.HWS 11:06
PROVIDERS: PCP Internal Medicine; Visit Provider Advanced Practice Midwife
DX: Z01.419 Encounter for gynecological examination (general) (routine) without abnormal findings (principal); I10 Essential (primary) hypertension
CPT/HCPCS: 99396; 99459

== ENCOUNTER 2024-10-05 11:06 | Outpatient (REF) | payer OTHER, SELFPAY ==
--- OUTSIDE RECORDS SUMMARY | 2024-10-05 13:40 | XMS_ITS | Encounter Summary ---
Author Organization [employer] Address [address] [place] [address] Care Team Providers Care Primer Inserting Machine Operator Name Role Phone Federica Angel MD Primary Care Prov ider Reason for Visit * Reason Onset Date Comments information needed 09/20/2024 Encounter Details Date Type Department Care Team (Late st Contact Info) Description 09/20/2024 Telephone Adult Medicine [address] [phone] Federica Angel MD [address] [place] [address] information needed Social History Tobacco Use Types [...] Copy of form printed and placed in [facility], called patient and she is aware. States she'll be by on Tuesday to picker. * Alexandra Adame - 09/20/2024 4:11 PM EST Pt is requesting a copy of her form from 07/12/2024. Dmv Please contact pt when it is ready for picker. documented in this encounter Plan of Treatment Upcoming Encounters Date Type Department Care Team (Late st Contact Info) Description 10/15/2024 10:30 AM EDT Office Visit Pulmonolgy - [place] [address] [place] [address] Zoie Chavis NP [address] [place] [address] 10/18/2024 9:20 AM EDT Office Visit Gastroenterology - [address] [place] [address] Carolina Adame NP [address] [place] [address] documented as of this encounter Visit Diagnoses Not on filedocumented in this encounter Care Teams Primer Inserting Machine Operator Relationship Specialty Start Date End Date Federica Angel MD [address] [place] [address] PCP - General Internal Medicine 07/16/24 documented as of this encounter
--- OUTSIDE RECORDS SUMMARY | 2024-10-05 13:40 | XMS_ITS | Clinical Summary ---
Author Organization [facility] Address [address] [place] [address] Care Team Providers Care Computer Support Analyst Name Role Phone Waldemar Fournier MD Primary Care Provider [phone] Allergies No known active allergies Medications Medication [...] age to complete this topic Care Teams Computer Support Analyst Relationship Specialty Start Date End Date Waldemar Fournier MD PCP - General Internal Medicine 08/04/21
--- OUTSIDE RECORDS SUMMARY | 2024-10-05 13:40 | XMS_ITS | Encounter Summary ---
Author Organization [employer] Address [address] [place] [address] Care Team Providers Care Microwave Remote Sensing Scientist Name Role Phone Federica Angel MD Primary Care Prov ider Reason for Visit * Reason Onset Date Comments er follow up 09/12/2024 Encounter Details Date Type Department Care Team (Late st Contact Info) Description 09/12/2024 Telephone Adult Medicine [address] [phone] Federica Angel MD [address] [place] [phone] er follow up Social History Tobacco Use [...] RN - 09/13/2024 9:16 AM EST Using counter attendant Kamini ER follow up made for tomorrow [...] appointment needed Hospital patient was treated at: [facility] Was this only an ER visit or [...] was the injury due to: Not 3rd republican related documented in this encounter Plan of Treatment Upcoming Encounters Date Type Department Care Team (Late st Contact Info) Description 10/15/2024 10:30 AM EDT Office Visit Pulmonolgy - [place] [address] [place] [address] Zoie Chavis NP [address] [place] [address] 10/18/2024 9:20 AM EDT Office Visit Gastroenterology - [address] [place] [address] Carolina Adame NP [address] [address] documented as of this encounter Visit Diagnoses Not on filedocumented in this encounter Care Teams Microwave Remote Sensing Scientist Relationship Specialty Start Date End Date Federica Angel MD [address] [place] [address] PCP - General Internal Medicine 07/16/24 documented as of this encounter
--- OUTSIDE RECORDS SUMMARY | 2024-10-05 13:40 | XMS_ITS | Encounter Summary ---
Author Organization [employer] Address [address] [place] [address] Care Team Providers Care Military Administrative Technician Name Role Phone Federica Angel MD Primary Care Prov ider Reason for Referral * Consultation (Routine) - Authorized Specialty Diagnoses / Procedures Referred By Contac t Referred To Contact Gastroenterology Diagnoses Epigastric abdominal pain Microcytic anemia Jaqueline Garcia PA [address] [place], [place] Phone: tel: fax: Gastroenterology - [address] [address] Phone: tel: fax: Referral ID Status Reason Start Date Expiration Date Visits Requested Visits Authorized [id number] Authorized Specialty Services Required 09/14/2024 09/14/2025 1 1 * Imaging (Routine) - Pending Review Specialty Diagnoses / Procedures Referred By Contac t Referred To Contact Radiology Diagnoses Epigastric abdominal pain Procedures US Abdomen Complete Jaqueline Garcia PA [address] [place], [place] Phone: tel: fax: [facility] [address] Phone: tel: Referral ID Status Reason Start Date Expiration Date V isits Requested Visits Authorized [id number] Pending Review 09/14/2024 09/14/2025 1 1 Reason for Visit * Reason Comments ER Follow up Seen at [facility], abdomin al pain. Encounter Details Date Type Department Care Team (Late st Contact Info) Description 09/14/2024 10:00 AM EST Office Visit Adult Medicine [facility] [address] [place] [address] Jaqueline Garcia PA [address] [place], [place] Epigastric abdominal pain (Primary Dx); Microcytic [...] CHIEF COMPLAINT: ER Follow up (Seen at [facility], abdominal pain. ) IDENTIFIER: Kristi Thomason is a 39 y.o. old female. HPI: Patient is a 39-year-old female who presents to the office today for ER follow- up. She speaks Armenian and interpreter and translator services # [phone] and #[phone]. She presented to [facility] ER on 09/03/2024 complaining ofepigastric abdominal pain [...] 10:30 AM EDT Office Visit Pulmonolgy - [place] [address] [place] [address] Zoie Chavis NP [address] [place] [address] 10/18/2024 9:20 AM EDT Office Visit Gastroenterology - [address] [facility] [address] [place] [address] Carolina Adame NP [address] [facility] [address] [place] [address] Scheduled Orders Name Type Priority Associated Diagnoses [...] Signed Date: 09/24/2024 09:52 ET Workstation ID: [id number] Transcribed By: Self Edit Transcribed Date: 09/24/2024 [...] Signed Date: 09/24/2024 09:52 ET Workstation ID: [id number] Transcribed By: Self Edit Transcribed Date: 09/24/2024 09:50 ET us Jaqueline Jose HEADLEY IMG US PROCEDURES Final Result documented in this encounter Visit Diagnoses Diagnosis Epigastric abdominal pain- Primary Abdominal pain, epigastric Microcytic anemia Unspecified iron deficiency anemia Primary hypertension Unspecified essential hypertension Epigastric abdominal pain Abdominal pain, epigastric documented in this encounter Care Teams Military Administrative Technician Relationship Specialty Start Date End Date Federica Angel MD [address] [place] [address] PCP - General Internal Medicine 07/16/24 documented as of this encounter
--- OUTSIDE RECORDS SUMMARY | 2024-10-05 13:40 | XMS_ITS | Encounter Summary ---
Author Organization [employer] Address [address] [place] [address] Care Team Providers Care Aquatic Performer Name Role Phone Federica Angel MD Primary Care Prov ider Reason for Visit * Reason Onset Date Comments Forms/questionnaires 10/02/2024 DMV from 2023 Encounter Details Date Type Department Care Team (Late st Contact Info) Description 10/02/2024 Telephone Adult Medicine [address] [phone] Federica Angel MD [address] [place] [address] Forms/questionnaires (DMV from June of 2024) Social [...] DMV form from 06/22/24 be mailed to [place] [employer] [address] [address] [place] [address] due to being advised by the DMV to do so because of a flag on the patients account with them. Without this flag being removed the patient will not be able to drive. documented in this encounter Plan of Treatment Upcoming Encounters Date Type Department Care Team (Late st Contact Info) Description 10/15/2024 10:30 AM EDT Office Visit Pulmonolgy - [place] [address] [place] [address] Zoie Chavis NP [address] [place] [address] 10/18/2024 9:20 AM EDT Office Visit Gastroenterology - [address] [place] [address] Carolina Admae, OFFICE ADMIN [address] [address] documented as of this encounter Visit Diagnoses Not on filedocumented in this encounter Care Teams Aquatic Performer Relationship Specialty Start Date End Date Federica Angel MD [address] [place] [address] PCP - General Internal Medicine 07/16/24 documented as of this encounter
--- OUTSIDE RECORDS SUMMARY | 2024-10-05 13:40 | XMS_ITS | Encounter Summary ---
Author Organization [employer] Address [address] [place] [address] Care Team Providers Care Office Nurse Name Role Phone Federica Angel MD Primary Care Prov ider Reason for Referral * Imaging (Routine) - Pending Review Specialty Diagnoses / Procedures Referred By Contac t Referred To Contact Radiology Diagnoses Epigastric abdominal pain Procedures US Abdomen Complete Jaqueline Garcia PA [address] [place] [address] Phone: tel: fax: [address] Phone: tel: Referral ID Status Reason Start Date Expiration Date V isits Requested Visits Authorized [id number] Pending Review 09/14/2024 09/14/2025 1 1 Reason for Visit * Imaging (Routine) - Pending Review Specialty Diagnoses / Procedures Referred By Contac t Referred To Contact Radiology Diagnoses Epigastric abdominal pain Procedures US Abdomen Complete Jaqueline Garcia PA [address] [place] [address] Phone: tel: fax: [address] Phone: tel: Referral ID Status Reason Start Date Expiration Date V isits Requested Visits Authorized [id number] Pending Review 09/14/2024 09/14/2025 1 1 Encounter Details Date Type Department Care Team (Latest Contact Info) Description 09/24/2024 8:40 AM EST - 09/24/2024 11:59 PM EST Hospital Encounter Radiology Department - [address] [phone] Epigastric abdominal pain Discharge Disposition: Home or [...] 10:30 AM EDT Office Visit Pulmonolgy - [place] [address] [place] [address] Zoie Chavis NP [address] [facility] [address] [place] [address] 10/18/2024 9:20 AM EDT Office Visit Gastroenterology - [address] [facility] [address] [place] [address] Carolina Adame NP [address] [place] [address] documented as of this encounter Procedures Procedure [...] Signed Date: 09/24/2024 09:52 ET Workstation ID: [id number] Transcribed By: Self Edit Transcribed Date: 09/24/2024 [...] Signed Date: 09/24/2024 09:52 ET Workstation ID: [id number] Transcribed By: Self Edit Transcribed Date: 09/24/2024 09:50 ET us Jaqueline Jose HEADLEY IMG US PROCEDURES Final Result documented in this encounter Visit Diagnoses Diagnosis Epigastric abdominal pain Abdominal pain, epigastric documented in this encounter Care Teams Office Nurse Relationship Specialty Start Date End Date Federica Angel MD [address] [place] [address] PCP - General Internal Medicine 07/16/24 documented as of this encounter
--- OUTSIDE RECORDS SUMMARY | 2024-10-05 13:40 | XMS_ITS | Clinical Summary ---
Author Organization [address] [facility] Address [address] [place] [address] Phone Care Team Providers Care Disease Control Inspector Name Role Phone Federica Angel MD Primary [...] sleep apnea-hypopnea syndro me 07/14/2023 Overview (06/11/2024): [facility] Home Sleep Apnea Test: Date 06/06/2023 [...] Care Team Description 10/02/2024 Telephone Adult Medicine [address] [phone] Federica Wray MD Forms/questionnaires (DMV from June of 2024) 09/24/2024 8:40 AM EST - 09/24/2024 11:59 PM EST Hospital Encounter Radiology Department - [address] [phone] Epigastric abdominal pain Discharge Disposition: Home or Self Care 09/20/2024 Telephone Adult [address] [phone] Federica Wray MD information needed 09/14/2024 10:00 AM EST Office Visit Adult [address] [phone] Jaqueline Garcia PA Epigastric abdominal pain (Primary Dx); Microcytic anemia; Primary hypertension 09/12/2024 Telephone Adult [address] [phone] Federica Wray MD er follow up 09/03/2024 Telephone Adult [address] [phone] Federica Wray MD Shoulder Pain (left); Abdominal Pain (Upper middle ) 08/24/2024 10:00 AM EST Evaluation Outpatient Rehabilitation [address] [phone] Dima Crisostomo, PT Strain of right hamstring muscle, initial encounter 07/31/2024 11:15 AM EST Office Visit Adult [address] [phone] Federica Wray MD Primary hypertension (Primary Dx); Moderate obstructive sleep apnea-hypopnea syndrome; Mild intermittent asthma without complication; Anxiety; Strain of right hamstring muscle, initial encounter 07/16/2024 8:50 AM EST Office Visit Pul[facility]olgy [facility] [address] [facility] [address] [place] [address] Zoie Chavis NP Mild persistent [...] 10:30 AM EDT Office Visit Pulmonolgy - [place] [address] [place] [address] Zoie Chavis, [place] [address] [place] [address] 10/18/2024 9:20 AM EDT Office Visit Gastroenterology - [address] [facility] [address] [place] [address] Carolina Adame NP [address] [facility] [address] [place] [address] Health Maintenance Due Date Last Done Comments [...] Signed Date: 09/24/2024 09:52 ET Workstation ID: [id number] Transcribed By: Self Edit Transcribed Date: 09/24/2024 [...] Signed Date: 09/24/2024 09:52 ET Workstation ID: [id number] Transcribed By: Self Edit Transcribed Date: 09/24/2024 09:50 ET us Jaqueline Garcia PA IMG US PROCEDURES Final Result * Depression Screening (04/21/2024) Pathologist [facility] Depression Screening Abstracted Historical Provider HEALTH MAINTENANCE Final Result * Annual BMP Blood Test (03/07/2023) Pathologist [facility] Annual BMP Blood Test Abstracted Historical Provider HEALTH MAINTENANCE Final Result * Lipid panel (03/07/2023) [facility] LDL/HDL Ratio 3 0 - 4 Triglycerides 91 0 - 150 mg/dL Cholesterol 155 0 - 200 mg/dL HDL 50 >=40 mg/dL LDL Cholesterol 87 0 - 100 mg/dL Blood Venous blood specimen / Unknown Result [facility] Historical Provider LAB BLOOD ORDERABLES Mily l Result * Pap Smear (03/07/2022) Pathologist [facility] Pap smear No interpretation , Abstracted Result [facility] Historical Provider HEALTH MAINTENANCE Final Result from Last 3 Months or Most Recently Relevant to Health Maintenance Insurance [place] [address] HEALTH PLAN Care Teams Disease Control Inspector Relationship Specialty Start Date End Date Federica Angel MD [address] [place] [address] PCP - General Internal Medicine 07/16/24
--- OUTSIDE RECORDS SUMMARY | 2024-10-05 13:40 | XMS_ITS | Encounter Summary ---
Author Organization [employer] Address [address] [place] [address] Care Team Providers Care Welding Engineer Name Role Phone Federica Angel MD Primary Care Prov ider Encounter Details Date Type Department Care Team (Late st Contact Info) Description 05/04/2024 4:13 PM EDT Hospital Encounter TH HISTORIC ENCOUNTERS EASTERN CONVERSION ONLY Federica Angel MD [address] [place] [phone] Social History Tobacco Use Types Packs/Day Years [...] Description 10/15/2024 10:30 AM EDT [facility] [address] [phone] Zoie Chavis NP [address] [place] [phone] 10/18/2024 9:20 AM EDT Office Visit Gastroenterology - [address] [facility] [address] [phone] Carolina Adame, RAISER HELPER [address] [address] documented as of this encounter Visit Diagnoses Not on filedocumented in this encounter Care Teams Welding Engineer Relationship Specialty Start Date End Date Federica Angel MD PCP - General 06/17/22 07/15/24 documented as of this encounter
[2024-10-05 18:08] LABS: Bacterial Vaginosis PCR POSITIVE (Negative); Candida Group PCR NOT DETECTED (Not Detect); Candida glab krusei PCR NOT DETECTED (Not Detect); Trichomonas vaginalis PCR NOT DETECTED (Not Detect)
[2024-10-05 18:40] LABS: CT PCR NOT DETECTED (Not Detect.); NG PCR NOT DETECTED (Not Detect.)
[2024-10-10 12:58] LABS: HPV Genotype 16 Negative (Negative); HPV Genotype 18 Negative (Negative); HPV High Risk Positive (Negative)
== END 2024-10-05 11:07 | disposition home or self-care (01) ==
LOC: HO.LNP 11:06
PROVIDERS: PCP Internal Medicine; Visit Provider Advanced Practice Midwife
DX: Z01.419 Encounter for gynecological examination (general) (routine) without abnormal findings (principal); Z87.42 Personal history of other diseases of the female genital tract; Z87.19 Personal history of other diseases of the digestive system; Z87.59 Personal history of other complications of pregnancy, childbirth and the puerperium; I10 Essential (primary) hypertension
CPT/HCPCS: 81515; 87491; 87591; 87626; 88175; 99396; 99459

== ENCOUNTER 2024-11-15 14:12 | Outpatient (AMB) | payer OTHER, SELFPAY ==
--- NOTE | 2024-11-15 14:21 | MHC.OFFVIS ---
Vital Signs 11/15/24 14:22 Height 5 ft 1 in Weight 167 lb BMI 31.6 BP 154/100 H Intake Visit Reasons: Colposcopy Avionics Systems Repairer Required: Yes Avionics Systems Repairer Language: Brazilian Information Interpreted: non-clinical & clinical Typewriter Assembly And Parts Inspector: Typewriter Assembly And Parts Inspector Present (Miranda Harris LIBRA) Accompanied by: Self / Same As Patient Allergies No Known Allergies Allergy (Verified 11/15/24 14:29) Is last menstrual period known: Yes Last menstrual period: 11/09/24 HPI Comments Details: Presenting for abnormal Pap smear in 10/23 ascus HPV positive, HPV 16/18 negative Pap smear in 09/24 was negative/HPV high-risk positive PFSH Medical History Hypertension History of HPV infection History of abnormal cervical Pap smear Cyst of uterus Asthma Anxiety Surgical History No history of previous surgery Family History Mother Nerve damage Social History Alcohol intake: never Sexual orientation: Straight/Heterosexual Gender identity: Female Female Reproductive History Menstrual Age of Menarche: 10 Date of last menstrual period: 11/09/24 Review of Systems Const All systems reviewed & are unremarkable except as noted in HPI and below Reports as per HPI and Reports no additional complaints GI Reports no additional complaints Reports no additional complaints Physical Exam Vital Signs: Last Vital Signs BP 154/100 H 11/15/24 14:22 BMI result Body Mass Index 31.6 Office Procedures Colposcopy Colposcopy: Pre-Procedure Counseling: Before beginning the procedure, I conducted comprehensive counseling with the patient. We thoroughly discussed the procedure itself, including its details, alternatives, and all associated risks. This included but not limited to the following complications such as bleeding, infection, and injury to the vagina, bladder, and vessels, as well as the potential need for transfusion with all its associated risks. Subsequently, the patient sign the consent. Pap smear result: Ascus/HPV high-risk positive, HPV 16/18 negative. Urine test in office = Negative Procedure: During the procedure, the following steps were performed: A speculum was inserted, and acetic acid was applied. Colposcopy was conducted, allowing visualization of the transformation zone. Acetowhite lesions were identified at the 4+6+8+1 o'clock position. Cervical biopsies were obtained from the 4+6+8+1 o'clock position, followed by an endocervical curettage (ECC). Vaginoscopy of the upper vagina revealed no evidence of aceto-white lesions. Hemostasis was achieved using Monsel solution, and the patient tolerated the procedure well. Post-Procedure Instructions: The patient was advised to promptly contact the office or the after hours answering service or go to the emergency room if experiencing a temperature exceeding 100.4?F, abdominal pain, nausea/vomiting, or bleeding. Additionally, the patient was instructed to abstain from vaginal intercourse and bathtub use. The patient confirmed understanding of these instructions. Discharge Instructions: The patient was instructed to schedule a follow-up appointment in 2 weeks for further evaluation and management. Please note that this note was generated using a voice recognition program, and errors may have occurred during lacer and tier. [id number] of cervix including upper vagina with biopsy and ECC Procedure code (CPT) selection complete Assessment & Plan Assessment & Plan (1) ASCUS with positive high risk HPV cervical: Code(s): R87.610 - Atypical squamous cells of undetermined significance on cytologic smear of cervix (ASC-US); R87.810 - Cervical high risk human papillomavirus (HPV) DNA test positive Category: Medical Plan: Discussed with the patient the result of her abnormal pap, its significance, risk of progression, persistence, and regression. the false positive/negative rate of a Pap smear as a screening test in detecting cervical cancer and the indication for a diagnostic test -colposcopy, biopsy, endocervical curettage. The patient verbalized understanding and agreed with the plan, all questions answered. Colpo biopsy ECC done, see procedure note Orders: Orders AMB Colposcopy Today R87.610 - Atypical squamous cells of undetermined significance on cytologic smear of cervix (ASC-US), R87.810 - Cervical high risk human papillomavirus (HPV) DNA test positive Coding Level of Care Code Procedure Only Diagnoses ASCUS with positive high risk HPV cervical R87.610; R87.810 CPT Codes Colposcopy - CPT: 59498-[id number] of cervix including upper vagina with biopsy and ECC ([id number])
[2024-11-15 14:22] VITALS: BP 154/100; BMI 31.6
--- OUTSIDE RECORDS SUMMARY | 2024-11-15 17:16 | XMS_ITS | Clinical Summary ---
Author Organization [facility] Address [address] [place] [address] Care Team Providers Care Electric Lineman Name Role Phone Waldemar Fournier MD Primary Care Provider [phone] Allergies No known active allergies Medications Medication [...] age to complete this topic Care Teams Electric Lineman Relationship Specialty Start Date End Date Waldemar Fournier MD PCP - General Internal Medicine 08/04/21
--- OUTSIDE RECORDS SUMMARY | 2024-11-15 17:16 | XMS_ITS | Encounter Summary ---
Author Organization [employer] Address [address] [place] [address] Care Team Providers Care Mirror Installer Name Role Phone Federica Angel MD Primary Care Prov ider Reason for Visit * Reason Comments Abdominal Pain Encounter Details Date Type Department Care Team (Latest Contact Info) Description 11/15/2024 10:30 AM EDT Office Visit Gastroenterology - [address] [facility] [address] [phone] Carolina Adame NP [address] [address] Gastroesophageal reflux disease, unspecified whether esophagitis present (Primary Dx) Social History Tobacco Use Types Packs/Day Years [...] Sign Reading Time Taken Comments Blood Pressure - - Pulse - - Temperature - - Respiratory Rate - - Oxygen Saturation - - Inhaled Oxygen Concentration - - Weight 74.2 kg (163 lb 9.6 oz) 11/15/2024 10:35 AM EDT Height 154.9 cm (5' 1 ) 11/15/2024 10:35 AM EDT Body Mass Index 30.91 11/15/2024 10:35 AM EDT documented in this encounter Progress Notes * Carolina Adame, CORRECTIONS OFFICER - 11/15/2024 10:30 AM EDT CHIEF COMPLAINT: Follow up upper abdominal pain DATE OF LAST GASTROENTEROLOGY PROCEDURES: None HPI: Kristi Thomason is a 39 y.o. old Thai speaking female who was originally referred to us by Federica Figueroa MD now presents to the gastroenterology department today for a follow up of epigastric pain after eating. After our last office visit last month I had started her on omeprazole daily and hyoscyamine before meals. Today she tells me through an operating room coordinator that she is feeling better. However she still having postprandial dyspepsia and epigastric discomfort. Shedenies using NSAIDs. She denies nausea, vomiting, or weight loss. Her bowels are working fine and she has no rectal bleeding. Today we discussed upper endoscopy which she would like to pursue. While waiting for that test she is to continue on her current medications. I will see her back after testing. ROS: GENERAL: No malaise, significant weight loss or fever HEENT: No changes in hearing or vision or swallowing problems RESPIRATORY: No cough, wheezing or shortness of breath CARDIOVASCULAR: No chest pain, leg swelling or palpitations GI: See H&P The remainder of the review of systems is reviewed and negative. PAST MEDICAL HISTORY: Past Medical History: Diagnosis Date Anxiety 04/21/2018 DX:Anxiety Asthma DX:Asthma Complex cyst of right ovary 06/30/2017 DX:Complex cyst of right ovary Fibroids, submucosal 06/30/2017 DX:Fibroids, submucosal Hypertension 05/31/2017 DX:Hypertension Seizure (CMS/HCC V24, CMS/HCC V28) 04/21/2018 DX:Seizure (HCC) PAST SURGICAL HISTORY: No past surgical history on file. SOCIAL HISTORY: Social History Tobacco Use Smoking status: Never Smokeless tobacco: Never Substance Use Topics Alcohol use: No FAMILY HISTORY: Family History Problem Relation Name Age of Onset Arthritis Father Hypertension Mother ACTIVE MEDICATIONS: Amlodipine 10mg QD Ellipta FeSO4 Flonase Losartan 100mg QD Zoloft 100mg QD Imitrex prn Ventolin ALLERGIES: NKDA PHYSICAL EXAM: Visit Vitals OB Status Having periods Smoking Status Never APPEARANCE: Alert and in no acute distress EYES: PERRLA, conjunctiva and sclera normal. HEART: RRR with normal S1 and S2, no murmurs appreciated LUNG: clear to auscultation ABDOMEN: nontender without masses NEURO: Awake, alert and oriented x 3 Assessment/Plan Assessment & Plan Gastroesophageal reflux disease, unspecified whether esophagitis present Continue PPI EGD Discussed with patient indications for procedure as well as risks of bleeding, infection, risk of perforation and reaction to anesthesia. Patient is aware of risk of missed lesions. Indications including screening for potential pre- malignant lesions and attempting to remove them. General: Patient aware needs a ride home Nor to have liquids for at least three hours before procedure. Patient understands and would like to proceed I would like to thank Federica Figueroa MD for the opportunity to partake in the patient's care. Board Certified Gastroenterology [facility] [phone] [place] [address] [address] [place] [address] [email or web address] Carolina Adame NP documented in this encounter Plan of Treatment Upcoming Encounters Date Type Department Care Team ([facility] Contact Info) Description 04/17/2025 10:30 AM EDT Office Visit Pulmonolgy - [place] [facility] [address] [place] [address] Zoie Chavis NP [address] [facility] [address] [place] [address] documented as of this encounter Visit Diagnoses Diagnosis Gastroesophageal reflux disease, unspecified whether esophagitis present- Primary documented in this encounter Care Teams Mirror Installer Relationship Specialty Start Date End Date Federica Angel MD [address] [place] [address] PCP - General Internal Medicine 07/16/24 documented as of this encounter
--- OUTSIDE RECORDS SUMMARY | 2024-11-15 17:16 | XMS_ITS | Clinical Summary ---
Author Organization 175 [facility] Address [address] [place] [address] Phone Care Team Providers Care Santa'S Helper Name Role Phone Federica Angel MD Primary Care Prov ider Allergies No known active allergies Medications losartan (COZAAR) 100 mg tablet Take 1 tablet (100 mg total) by mouth 1 (one) time each day. 04/20/20 24 Active amLODIPine (NORVASC) 10 mg tablet Take 1 tablet (10 mg total) by mouth 1 (one) time each day. 04/20/20 24 Active SUMAtriptan (IMITREX) 50 mg tablet 06/14/20 23 Active Ventolin HFA 90 mcg/actuation inhalerIndication s:Mild persistent asthma, uncomplicated INHALE 2 PUFFS INTO THE LUNGS EVERY 6 HOURS NEEDED FOR COUGH OR WHEEZING. 18 each 6 07/12/20 24 Active sertraline (ZOLOFT) 100 mg tablet Take [...] tip and replace cap. 16 g 3 07/16/20 24 Active ferrous sulfate 325 mg (65 mg iron) EC tablet Take 1 tablet (325 mg total) by mouth 1 (one) time each day with breakfast. Do not crush, chew, or split. 30 each 5 09/14/19 25 Active Arnuity Ellipta 100 mcg/actuation blister with device inhalerIndication s:Mild persistent asthma without complication Inhale 1 puff by mouth 1 (one) time each day. Rinse mouth after use. 1 each 5 10/16/19 25 025 Active omeprazole OTC (PriLOSEC OTC) 20 mg EC tabletIndications :Epigastric abdominal pain Take 1 tablet (20 mg total) by mouth 1 (one) time each day. Do not crush, chew, or split. 30 tablet 11 10/19/19 25 026 Active sertraline (ZOLOFT) 25 mg tablet TAKE 1 TABLET BY MOUTH EVERY DAY 90 tablet 1 10/26/19 25 025 Discontin ued(Conta ct Move - Error) Active Problems Problem Noted Date Diagnosed Date Moderate obstructive sleep apnea-hypopnea syndro me 07/14/2023 Overview (06/11/2024): [facility] Home Sleep Apnea Test: Date 06/06/2023 ; [...] Encounters Date Type Department Care Team Description 11/15/2024 10:30 AM EDT Office Visit Gastroenterology - [address] [facility] [address] [facility] [address] [place] [phone] Carolina Adame NP Gastroesophageal reflux disease, unspecified whether esophagitis present (Primary Dx) 11/15/2024 Telephone Gastroenterology - [address] [place] [phone] Loan Nelson [place] 10/[facility] 200 [place] [phone] Megan Keane [place] DME-cpap supplies 10/18/2024 9:20 AM EDT Office Visit Gastroenterology - [address] [phone] Carolina Adame NP Epigastric abdominal pain; Microcytic anemia 10/15/2024 10:30 AM EDT [facility] 200 [place] [phone] Zoie Chavis NP Moderate obstructive sleep apnea-hypopnea syndrome (Primary Dx); Mild persistent asthma without complication; Obesity (BMI 30-39.9); Allergic rhinitis, unspecified seasonality, unspecified trigger 10/02/2024 Telephone Adult [facility] East - [address] [phone] Federica Novoa MD Forms/questionnaires (DMV from June of 2024) 09/24/2024 8:40 AM EST - 09/24/2024 11:59 PM EST Hospital Encounter Radiology Department - [address] [phone] Epigastric abdominal pain Discharge Disposition: Home or Self Care 09/20/2024 Telephone Adult [address] [phone] Federica Novoa MD information needed 09/14/2024 10:00 AM EST Office Visit Adult [address] [phone] Jaqueline Garcia PA Epigastric abdominal pain (Primary Dx); Microcytic anemia; Primary hypertension 09/12/[address] [phone] Federica Novoa MD er follow up 09/03/[address] [phone] Federica Novoa MD Shoulder Pain (left); Abdominal Pain (Upper middle ) 08/24/2024 10:00 AM EST Evaluation Outpatient [address] [phone] Dima Crisostomo, PT Strain of right hamstring muscle, initial encounter from Last 3 Months Immunizations Name Administration [...] DX:Fibroids , submucosal Hypertension 05/31/2017 DX:Hypertension Seizure (CMS/HCC V24, CMS/HCC V28) 04/21/2018 DX:Seizure (HCC) Family History Medical History Relation Name Comments [...] Sign Reading Time Taken Comments Blood Pressure 128/80 10/15/2024 10:28 AM EDT Pulse 84 10/15/2024 10:28 AM EDT Temperature 36.6 ??C (97.8 ??F) 10/15/2024 10:28 AM E DT Respiratory Rate 16 10/15/2024 10:28 AM EDT Oxygen Saturation 99% 10/15/2024 10:28 AM EDT Inhaled Oxygen Concentration - - Weight 74.2 kg (163 lb 9.6 oz) 11/15/2024 10:35 AM EDT Height 154.9 cm (5' 1 ) 11/15/2024 10:35 AM EDT Body Mass Index 30.91 11/15/2024 10:35 AM EDT Plan of Treatment Upcoming Encounters Date Type Department Care Team (Late st Contact Info) Description 04/17/2025 10:30 AM EDT Office Visit Pulmonolgy - [place] 175 [facility] [address] [place] [phone] Zoie Chavis NP 175 [facility] [address] [place] [address] Health Maintenance Due Date Last Done Comments Breast Cancer Screening 1983 Hepatitis B Vaccines (1 of 3 - 19+ 3-dose series) 2002 HIV Screening 07/10/2022 Hepatitis C Screening 07/10/2022 Social Influencers of Health Screening 07/10/2022 Cervical Cancer Screening: Pap Smear 03/07/2025 03/07/2022 Influenza Vaccine (Season Ended) 2025 Depression Screening 04/21/2025 04/21/2024 Hypertension/CHF/CAD Annual BMP Blood Test 10/19/2025 10/19/2024, 03/07/2023 Cholesterol Screening (Lipid Panel) 10/19/2029 10/19/2024, 03/07/2023 DTaP,Tdap,and Td Vaccines (2 - Td or Tdap) 03/07/2033 03/07/2023 Pneumococcal Vaccine: Pediatrics (0 to 5 Years) and At-Risk Patients [...] age to complete this topic Meningococcal B Vaccine Aged Out No l onger eligible based on patient's age to complete this topic RSV Immunization Patients Under 20 months Aged Out No longer eligible based on patient's age to complete this topic Varicella Vaccines Aged Out No longer eligible based on patient's age to complete this topic Procedures Procedure Name Priority Date/Time Associated Diagnosis Comments LIPID PANEL WITH REFLEX TO DIRECT LDL Routine 10/19/2024 9:04 AM EDT Primary hypertension COMPREHENSIVE METABOLIC PANEL Routine 10/19/2024 9:04 AM EDT Primary hypertension IRON AND TIBC Routine 10/19/2024 9:04 AM EDT Microcytic anemia IA SLEEP STUDY ATTENDED Routine 10/12/2024 3:06 PM EDT EXTERNAL CLINICAL LAB Routine 10/11/2024 9:27 AM EDT EXTERNAL CLINICAL LAB Routine 10/10/2024 1:10 PM EDT US ABDOMEN COMPLETE Routine 09/24/2024 9 :25 AM EST Epigastric abdominal pain HM DEPRESSION SCREENING Routine 04/21/2024 HM PAP SMEAR Routine 03/07/2022 from Last 3 Months or Most Recently Relevant to Health Maintenance Results * (ABNORMAL) Lipid panel with reflex to direct LDL (10/19/2024 9:04 AM EDT) Cholesterol 186 0 - 200 mg/dL LAB CHEMISTRY METHOD 10/19/2024 3:10 PM EDT [facility] Triglycerides 53 0 - 150 mg/dL LAB CHEMISTRY METHOD 10/19/2024 3:10 PM EDT [facility] HDL 62 >=40 mg/dL LAB CHEMISTRY METHOD 10/19/2024 3:10 PM EDT [facility] LDL Calculated 113(H) 0 - 100 mg/dL LAB CHEMISTRY METHOD 10/19/2024 3:10 PM EDT [facility] VLDL Cholesterol Dariusz 10.6 mg/dL LAB CHEMISTRY METHOD 10/19/2024 3:10 PM EDT [facility] Non HDL Chol. (LDL+VLDL) 124 <145 mg/dL LAB CHEMISTRY METHOD 10/19/2024 3:10 PM EDT [facility] Chol/HDL Ratio 3.0 0.0 - 4.4 LAB CHEMISTRY METHOD 10/19/2024 3:10 PM EDT [facility] Blood Venous blood specimen / Unknown Venipuncture / Unknown 10/19/2024 9:04 AM EDT 10/19/2024 9:04 AM EDT us Federica Angel MD LAB BLOOD ORDERABL ES Final Result [facility] [address] [place] [address], [place] [phone] * (ABNORMAL) Iron and TIBC (10/19/2024 9:04 AM EDT) Iron 23(L) 40 - 150 mcg/dL LAB CHEMISTRY METHOD 10/19/2024 3:10 PM EDT [facility] TIBC 433 250 - 450 mcg/dL LAB CHEMISTRY METHOD 10/19/2024 3:10 PM EDT [facility] Iron Saturation 5(L) 15 - 50 % LAB CHEMISTRY METHOD 10/19/2024 3:10 PM [facility] Blood Venous blood specimen / Unknown Venipuncture / Unknown 10/19/2024 9:04 AM EDT 10/19/2024 9:04 AM EDT us Jaqueline Jose HEADLEY LAB BLOOD ORDERABLES Final Resul t [facility] [address] [place] [address], [place] [phone] * Comprehensive metabolic panel (10/19/2024 9:04 AM EDT) Sodium 136 133 - 145 mmol/L LAB CHEMISTRY METHOD 10/19/2024 3:10 PM [facility] Potassium 4.3 3.5 - 5.5 mmol/L LAB CHEMISTRY METHOD 10/19/2024 3:10 PM [facility] Chloride 104 96 - 110 mmol/L LAB CHEMISTRY METHOD 10/19/2024 3:10 PM [facility] CO2 24 21 - 32 mmol/L LAB CHEMISTRY METHOD 10/19/2024 3:10 PM [facility] Anion Gap 8 3 - 11 LAB CHEMISTRY METHOD 10/19/2024 3:10 PM [facility] Glucose 84 70 - 100 mg/dL LAB CHEMISTRY METHOD 10/19/2024 3:10 PM [facility] BUN 15 5 - 25 mg/dL LAB CHEMISTRY METHOD 10/19/2024 3:10 PM [facility] Creatinine 0.86 0.50 - 1.10 mg/dL LAB CHEMISTRY METHOD 10/19/2024 3:10 PM [facility] eGFR 87 >=60 mL/min/1. 73m2 LAB CHEMISTRY METHOD 10/19/2024 3:10 PM [facility] Comment:Calculation based on the??Chronic Kidney Disease Epidemiology Collaboration (CKD-EPI) equation refit??without adjustment for race. BUN/Creatinine Ratio 17.4 LAB CHEMISTRY METHOD 10/19/2024 3:10 PM EDT [facility] Calcium 9.2 8.5 - 10.5 mg/dL LAB CHEMISTRY METHOD 10/19/2024 3:10 PM EDT [facility] AST (SGOT) 11 10 - 42 unit/L LAB CHEMISTRY METHOD 10/19/2024 3:10 PM EDT [facility] ALT (SGPT) 16 10 - 60 unit/L LAB CHEMISTRY METHOD 10/19/2024 3:10 PM EDT [facility] Alkaline Phosphatase 77 42 - 121 unit/L LAB CHEMISTRY METHOD 10/19/2024 3:10 PM EDT [facility] Total Protein 8.0 6.0 - 8.0 g/dL LAB CHEMISTRY METHOD 10/19/2024 3:10 PM EDT [facility] Albumin 4.1 3.2 - 5.0 g/dL LAB CHEMISTRY METHOD 10/19/2024 3:10 PM EDT [facility] Total Bilirubin 0.4 0.0 - 1.4 mg/dL LAB CHEMISTRY METHOD 10/19/2024 3:10 PM EDT [facility] Blood Venous blood specimen / Unknown Venipuncture / Unknown 10/19/2024 9:04 AM EDT 10/19/2024 9:04 AM EDT Federica Angel MD LAB BLOOD ORDERABL ES Final Result [facility] [address] [place] [address], * General sleep study (10/12/2024 3:06 PM EDT) us Historical Provider SLEEP CENTER ORDERABLES F inal Result * External clinical lab (10/11/2024 9:27 AM EDT) Only the most recent of2 resultswithin the time period is included. us Historical Provider LAB BLOOD ORDERABLES Mily l Result * US Abdomen Complete (09/24/2024 9:25 AM EST) Anatomical Region Laterality Modality Body Ultrasound 09/24/2024 9:50 AM EST Impressions 09/24/2024 9:52 AM EST Cholelithiasis. -------- FINAL REPORT -------- Dictated By: Starr Argueta Dictated Date: 09/24/2024 09:50 ET Assigned Physician: Starr Argueta Reviewed and Electronically Signed By: Starr Argueta Signed Date: 09/24/2024 09:52 ET Workstation ID: [id number] Transcribed By: Self Edit Transcribed Date: 09/24/2024 [...] Signed Date: 09/24/2024 09:52 ET Workstation ID: [id number] Transcribed By: Self Edit Transcribed Date: 09/24/2024 09:50 ET us Jaqueline HEADLEY IMKary US PROCEDURES Final Result * Depression Screening (04/21/2024) Depression Screening Abstracted Historical Provider HEALTH MAINTENANCE Final Result * Pap Smear (03/07/2022) Pap smear No interpretation , Abstracted Historical Provider HEALTH MAINTENANCE Final Result from Last 3 Months or Most Recently Relevant to Health Maintenance [place] [address] [place] [address] [employer] PL[employer] Care Teams Santa'S Helper Relationship Specialty Start Date End Date Federica Angel MD [address] [place] [address] PCP - General Internal Medicine 07/16/24
--- OUTSIDE RECORDS SUMMARY | 2024-11-15 17:16 | XMS_ITS | Encounter Summary ---
Author Organization [employer] Address [address] [place] [address] Care Team Providers Care Senior Clinical Consultant Name Role Phone Federica Angel MD Primary Care Prov ider Encounter Details Date Type Department Care Team (Late st Contact Info) Description 05/04/2024 4:13 PM EDT Hospital Encounter TH HISTORIC ENCOUNTERS EASTERN CONVERSION ONLY Federica Angel MD [address] [place] [address] Social History Tobacco Use Types Packs/Day Years [...] Description 04/17/2025 10:30 AM EDT [facility] [address] [place] [phone] Zoie Chavis NP [address] [place] [address] documented as of this encounter Visit Diagnoses Not on filedocumented in this encounter Care Teams Senior Clinical Consultant Relationship Specialty Start Date End Date Federica Angel MD PCP - General 06/17/22 07/15/24 documented as of this encounter
--- OUTSIDE RECORDS SUMMARY | 2024-11-15 17:16 | XMS_ITS | Encounter Summary ---
Author Organization [employer] Address [address] [place] [address] Care Team Providers Care Cordwood Cutter Helper Name Role Phone Federica Angel MD Primary Care Prov ider Encounter Details Date Type Department Care Team (Late st Contact Info) Description 11/15/2024 Telephone Gastroenterology - [address] [place] [address] Loan Nelson MA Social History Tobacco Use Types Packs/Day Years [...] as of this encounter Progress Notes * Loan Nelson MA - 11/15/2024 1:54 PM EDT 1st attempt to schedule an appointment patient left message to call back * Loan Nelson MA - 11/15/2024 11:19 AM EDT ----- Message from Devora Adame NP sent at 11/15/2024 10:50 AM EDT ----- Schedule pt for EGD any MD DX persistent GERD despite PPI Sinhala speaking only documented in this encounter Plan of Treatment Upcoming Encounters Date Type Department Care Team (Late st Contact Info) Description 04/17/2025 10:30 AM EDT Office Visit Pulmonolgy - [place] [address] [place] [address] Zoie Chavis NP [address] [place] [address] documented as of this encounter Visit Diagnoses Not on filedocumented in this encounter Care Teams Cordwood Cutter Helper Relationship Specialty Start Date End Date Federica Angel MD [address] [place] [address] PCP - General Internal Medicine 07/16/24 documented as of this encounter
== END 2024-11-15 14:47 | disposition home or self-care (01) ==
LOC: HO.HWS 14:12
PROVIDERS: PCP Internal Medicine; Visit Provider Obstetrics & Gynecology
DX: R87.610 Atypical squamous cells of undetermined significance on cytologic smear of cervix (ASC-US) (principal); R87.810 Cervical high risk human papillomavirus (HPV) DNA test positive
CPT/HCPCS: 57454

== ENCOUNTER 2024-11-15 14:12 | Outpatient (REF) | payer OTHER, SELFPAY ==
--- OUTSIDE RECORDS SUMMARY | 2024-11-15 17:51 | XMS_ITS | Clinical Summary ---
Author Organization 175 [facility] Address [address] [place] [address] Phone Care Team Providers Care Voip Technician Name Role Phone Federica Angel MD [...] sleep apnea-hypopnea syndro me 07/14/2023 Overview (06/11/2024): [facility] Home Sleep Apnea Test: Date 06/06/2023 ; [...] Gastroenterology - [address] [facility] [address] [place] [phone] Carolina Adame NP Gastroesophageal reflux disease, unspecified whether esophagitis present (Primary Dx) 11/15/2024 Telephone Gastroenterology - [address] [place] [phone] Loan Nelson MA [facility] [address] [place] [phone] Megan Keane AR DME-cpap supplies 10/18/2024 9:20 AM EDT Office Visit Gastroenterology - [address] [phone] Carolina Adame NP Epigastric abdominal pain; Microcytic anemia 10/15/2024 10:30 AM EDT [facility] [address] [place] [phone] Zoie Chavis NP Moderate obstructive sleep apnea-hypopnea syndrome (Primary Dx); Mild persistent asthma without complication; Obesity (BMI 30-39.9); Allergic rhinitis, unspecified seasonality, unspecified trigger 10/02/2024 Telephone Adult Medicine East - [address] [phone] Federica Novoa MD Forms/questionnaires (DMV from June of 2024) 09/24/2024 8:40 AM EST - 09/24/2024 11:59 PM EST Hospital Encounter Radiology Department - [address] [phone] Epigastric abdominal pain Discharge Disposition: Home or Self Care 09/20/2024 Telephone Adult [address] [phone] Federica Novoa MD information needed 09/14/2024 10:00 AM EST Office Visit Adult [address] [phone] Jaqueline Garcia PA Epigastric abdominal pain (Primary Dx); Microcytic anemia; Primary hypertension 09/12/[address] [phone] Federica Novoa MD er follow up 09/03/[address] [phone] Federica Novoa MD Shoulder Pain (left); Abdominal Pain (Upper middle ) 08/24/2024 10:00 AM EST Evaluation Outpatient [address] [phone] Dima Crisostomo, PT Strain of right hamstring [...] 10:30 AM EDT Office Visit Pulmonolgy - [place] 175 [facility] [address] [place] [phone] Zoie Chavis NP [address] [facility] [address] [place] [address] Health Maintenance Due Date Last Done Comments [...] Routine 10/19/2024 9:04 AM EDT Microcytic anemia SC SLEEP STUDY ATTENDED Routine 10/12/2024 3:06 PM [...] LAB CHEMISTRY METHOD 10/19/2024 3:10 PM EDT [facility] Triglycerides 53 0 - 150 mg/dL LAB CHEMISTRY METHOD 10/19/2024 3:10 PM EDT [facility] HDL 62 >=40 mg/dL LAB CHEMISTRY METHOD 10/19/2024 3:10 PM EDT [facility] LDL Calculated 113(H) 0 - 100 mg/dL LAB CHEMISTRY METHOD 10/19/2024 3:10 PM EDT [facility] VLDL Cholesterol Dariusz 10.6 mg/dL LAB CHEMISTRY METHOD 10/19/2024 3:10 PM EDT [facility] Non HDL Chol. (LDL+VLDL) 124 <145 mg/dL LAB CHEMISTRY METHOD 10/19/2024 3:10 PM EDT [facility] Chol/HDL Ratio 3.0 0.0 - 4.4 LAB CHEMISTRY METHOD 10/19/2024 3:10 PM EDT [facility] Blood Venous blood specimen / Unknown Venipuncture / Unknown 10/19/2024 9:04 AM EDT 10/19/2024 9:04 AM EDT us Federica Angel MD LAB BLOOD ORDERABL ES Final Result [facility] [address] [place] [address], [place] [phone] * (ABNORMAL) Iron and TIBC (10/19/2024 9:04 AM EDT) Iron 23(L) 40 - 150 mcg/dL LAB CHEMISTRY METHOD 10/19/2024 3:10 PM EDT [facility] TIBC 433 250 - 450 mcg/dL LAB CHEMISTRY METHOD 10/19/2024 3:10 PM EDT [facility] Iron Saturation 5(L) 15 - 50 % LAB CHEMISTRY METHOD 10/19/2024 3:10 PM [facility] Blood Venous blood specimen / Unknown Venipuncture / Unknown 10/19/2024 9:04 AM EDT 10/19/2024 9:04 AM EDT us Jaqueline Jose HEADLEY LAB BLOOD ORDERABLES Final Resul t [facility] [address] [place] [address], [place] [phone] * Comprehensive metabolic panel (10/19/2024 9:04 AM EDT) Sodium 136 133 - 145 mmol/L LAB CHEMISTRY METHOD 10/19/2024 3:10 PM [facility] Potassium 4.3 3.5 - 5.5 mmol/L LAB CHEMISTRY METHOD 10/19/2024 3:10 PM [facility] Chloride 104 96 - 110 mmol/L LAB CHEMISTRY METHOD 10/19/2024 3:10 PM [facility] CO2 24 21 - 32 mmol/L LAB CHEMISTRY METHOD 10/19/2024 3:10 PM [facility] Anion Gap 8 3 - 11 LAB CHEMISTRY METHOD 10/19/2024 3:10 PM [facility] Glucose 84 70 - 100 mg/dL LAB CHEMISTRY METHOD 10/19/2024 3:10 PM [facility] BUN 15 5 - 25 mg/dL LAB CHEMISTRY METHOD 10/19/2024 3:10 PM [facility] Creatinine 0.86 0.50 - 1.10 mg/dL LAB CHEMISTRY METHOD 10/19/2024 3:10 PM [facility] eGFR 87 >=60 mL/min/1. 73m2 LAB CHEMISTRY METHOD 10/19/2024 3:10 PM [facility] Comment:Calculation based on the??Chronic Kidney Disease Epidemiology Collaboration (CKD-EPI) equation refit??without adjustment for race. BUN/Creatinine Ratio 17.4 LAB CHEMISTRY METHOD 10/19/2024 3:10 PM EDT [facility] Calcium 9.2 8.5 - 10.5 mg/dL LAB CHEMISTRY METHOD 10/19/2024 3:10 PM EDT [facility] AST (SGOT) 11 10 - 42 unit/L LAB CHEMISTRY METHOD 10/19/2024 3:10 PM EDT [facility] ALT (SGPT) 16 10 - 60 unit/L LAB CHEMISTRY METHOD 10/19/2024 3:10 PM EDT [facility] Alkaline Phosphatase 77 42 - 121 unit/L LAB CHEMISTRY METHOD 10/19/2024 3:10 PM EDT [facility] Total Protein 8.0 6.0 - 8.0 g/dL LAB CHEMISTRY METHOD 10/19/2024 3:10 PM EDT [facility] Albumin 4.1 3.2 - 5.0 g/dL LAB CHEMISTRY METHOD 10/19/2024 3:10 PM EDT [facility] Total Bilirubin 0.4 0.0 - 1.4 mg/dL LAB CHEMISTRY METHOD 10/19/2024 3:10 PM EDT [facility] Blood Venous blood specimen / Unknown Venipuncture / Unknown 10/19/2024 9:04 AM EDT 10/19/2024 9:04 AM EDT Federica Angel MD LAB BLOOD ORDERABL ES Final Result [facility] [address] [place] [address], * General sleep study (10/12/2024 3:06 PM [...] Signed Date: 09/24/2024 09:52 ET Workstation ID: [id number] Transcribed By: Self Edit Transcribed Date: 09/24/2024 [...] Signed Date: 09/24/2024 09:52 ET Workstation ID: [id number] Transcribed By: Self Edit Transcribed Date: 09/24/2024 09:50 ET us Jaqueline HEADLEY IMKary US PROCEDURES Final Result * Depression Screening (04/21/2024) Depression Screening Abstracted Historical Provider HEALTH MAINTENANCE Final Result * Pap Smear (03/07/2022) Pap smear No interpretation , Abstracted Historical Provider HEALTH MAINTENANCE Final Result from Last 3 Months or Most Recently Relevant to Health Maintenance Insurance [address] [place] [address] HEALTH PLAN Care Teams Voip Technician Relationship Specialty Start Date End Date Federica Angel MD [address] [place] [address] PCP - General Internal Medicine 07/16/24
--- OUTSIDE RECORDS SUMMARY | 2024-11-15 17:51 | XMS_ITS | Encounter Summary ---
Author Organization [employer] Address [address] [place] [address] Care Team Providers Care Systems Qa Analyst Name Role Phone Federica Angel MD Primary Care Prov ider Encounter Details Date Type Department Care Team (Late st Contact Info) Description 11/15/2024 Telephone Gastroenterology - [address] [place] [address] Loan Nelson MA Social History [...] any MD DX persistent GERD despite PPI Lithuanian speaking only documented in this encounter Plan of Treatment Upcoming Encounters Date Type Department Care Team (Late st Contact Info) Description 04/17/2025 10:30 AM EDT Office Visit Pulmonolgy - [place] [address] [place] [address] Zoie Chavis NP [address] [place] [address] documented as of this encounter Visit Diagnoses Not on filedocumented in this encounter Care Teams Systems Qa Analyst Relationship Specialty Start Date End Date Federica Angel MD [address] [place] [address] PCP - General Internal Medicine 07/16/24 documented as of this encounter
--- OUTSIDE RECORDS SUMMARY | 2024-11-15 17:51 | XMS_ITS | Encounter Summary ---
Author Organization [employer] Address [address] [place] [address] Care Team Providers Care Pottery Kiln Builder Name Role Phone Federica Angel MD Primary Care Prov ider Reason for Visit * Reason Comments Abdominal Pain Encounter Details Date Type Department Care Team (Latest Contact Info) Description 11/15/2024 10:30 AM EDT Office Visit Gastroenterology - [address] [facility] [address] [phone] Carolina Adame NP [address] [address] Gastroesophageal reflux disease, unspecified whether esophagitis present [...] this encounter Progress Notes * Carolina Adame, STREET LIGHT REPAIRER - 11/15/2024 10:30 AM EDT CHIEF COMPLAINT: Follow up upper abdominal pain DATE OF LAST GASTROENTEROLOGY PROCEDURES: None HPI: Kristi Thomason is a 39 y.o. old Togolese speaking female who was originally referred to us by Federica Figueroa MD now presents to the gastroenterology department today for a follow up of epigastric pain after eating. After our last office visit last month I had started her on omeprazole daily and hyoscyamine before meals. Today she tells me through an robotics systems engineer that she is feeling better. However she [...] in the patient's care. Board Certified Gastroenterology [facility] W [phone] [place] [address] [address] [place] [address] [email or web address] Carolina Adame NP documented in this encounter Plan of Treatment Upcoming Encounters Date Type Department Care Team ([facility] Contact Info) Description 04/17/2025 10:30 AM EDT Office Visit Pulmonolgy - [place] [address] [facility] [address] [place] [address] Zoie Chavis NP [address] [facility] [address] [place] [address] documented as of this encounter Visit Diagnoses Diagnosis Gastroesophageal reflux disease, unspecified whether esophagitis present- Primary documented in this encounter Care Teams Pottery Kiln Builder Relationship Specialty Start Date End Date Federica Angel MD [address] [place] [address] PCP - General Internal Medicine 07/16/24 documented as of this encounter
--- OUTSIDE RECORDS SUMMARY | 2024-11-15 17:51 | XMS_ITS | Encounter Summary ---
Author Organization [employer] Address [address] [place] [address] Care Team Providers Care Municipal Court Magistrate Name Role Phone Federica Angel MD Primary Care Prov ider Encounter Details Date Type Department Care Team (Late st Contact Info) Description 05/04/2024 4:13 PM EDT Hospital Encounter TH HISTORIC ENCOUNTERS EASTERN CONVERSION ONLY Federica Angel MD [address] [place] [address] Social History Tobacco Use Types Packs/Day Years [...] Description 04/17/2025 10:30 AM EDT [facility] [address] [place] [phone] Zoie Chavis NP [address] [place] [address] documented as of this encounter Visit Diagnoses Not on filedocumented in this encounter Care Teams Municipal Court Magistrate Relationship Specialty Start Date End Date Federica Angel MD PCP - General 06/17/22 07/15/24 documented as of this encounter
--- OUTSIDE RECORDS SUMMARY | 2024-11-15 17:51 | XMS_ITS | Clinical Summary ---
Author Organization [facility] Address [address] [place] [address] Care Team Providers Care Balance Wheel Arm Burnisher Name Role Phone Waldemar Fournier MD Primary Care Provider [phone] Allergies No known active allergies Medications Medication [...] age to complete this topic Care Teams Balance Wheel Arm Burnisher Relationship Specialty Start Date End Date Waldemar Fournier MD PCP - General Internal Medicine 08/04/21
== END 2024-11-15 14:13 | disposition home or self-care (01) ==
LOC: HO.LNP 14:12
PROVIDERS: PCP Internal Medicine; Visit Provider Obstetrics & Gynecology
DX: R87.810 Cervical high risk human papillomavirus (HPV) DNA test positive (principal); R87.610 Atypical squamous cells of undetermined significance on cytologic smear of cervix (ASC-US)
CPT/HCPCS: 57454; 88305

== ENCOUNTER 2024-11-29 14:01 | Outpatient (AMB) | payer OTHER, SELFPAY ==
--- NOTE | 2024-11-29 14:02 | A.OFFVIS_ITS ---
Intake Visit Reasons: colpo results Motorcycle Maker Required: Yes Motorcycle Maker Language: Fruit Grow[employer] Services: Motorcycle Maker Present (in person) Motorcycle Maker Name: Miranda SMYTH Allergies No Known Allergies Allergy (Verified 11/15/24 14:29) HPI Comments Details: The patient is scheduled a telehealth visit post colpo for follow-up. The patient is doing well with no complaints. The pathology showed the following: A. Endocervix, curettage: Superficial fragments of endocervical mucosa with patchy squamous metaplasia; no atypia identified. B. Cervix, 1 o'clock, biopsy: Fragments of mildly inflamed squamous and endocervical mucosa with reactive changes; no atypia identified. C. Cervix, 4 o'clock, biopsy: - Mildly inflamed squamous epithelium with reactive changes. - Endocervical epithelium within normal limits. - No atypia identified. D. Cervix, 6 o'clock, biopsy: Mildly inflamed cervical transformation zone mucosa with reactive changes; no atypia identified. E. Cervix, 8 o'clock, biopsy: Mildly inflamed cervical transformation zone mucosa with reactive changes; no atypia identified. COMMENT: The findings are concordant with the patient's recent Pap/cytology specimen ([id number]; ASCUS with positive HR HPV) - slide reviewed [facility] Medical History Hypertension History of HPV infection History of abnormal cervical Pap smear Cyst of uterus Asthma Anxiety Surgical History No history of previous surgery Family History Mother Nerve damage Social History Alcohol intake: never Sexual orientation: Straight/Heterosexual Gender identity: Female Female Reproductive History Menstrual Age of Menarche: 10 Review of Systems Const All systems reviewed & are unremarkable except as noted in HPI and below Reports as per HPI and Reports no additional complaints GI Reports no additional complaints Reports no additional complaints Telehealth Telehealth Telehealth Platform: Telephone Location of provider rendering services: practice address Location of patient: address on file Patient Identification confirmed using: Name, : Yes Telehealth method: video Patient verbally consented to treatment: Yes Patient verbally consented to billing insurance company: Yes Patient informed of any privacy concerns related to visit: Yes Minutes spent on Phone/Video with Pt.: 2 Assessment & Plan Assessment & Plan (1) ASCUS with positive high risk HPV cervical: Code(s): R87.610 - Atypical squamous cells of undetermined significance on cytologic smear of cervix (ASC-US); R87.810 - Cervical high risk human papillomavirus (HPV) DNA test positive Category: Medical Plan: Discussed with the patient the pathology results of the colposcopy biopsies & endocervical curettage . Discussed with the patient the sensitivity specificity, positive and negative predictive value in detecting cervical cancer in addition discussed the regression, persistence and progression rates. Recommended co-testing in 12 months, if cytology and or HPV are abnormal will proceed was colposcopy biopsy and endocervical curettage, if lesions gets worse or stays persistent for 2 years will proceed with loop electric excision procedure. Instructions given to the patient to schedule a co test appointment in 1 year. All questions answered the patient verbalized understanding. I spent a total of 20 minutes reviewing the chart, talking to the patient via video and documenting in the medical record. Coding Level of Care Code Tele Est Pt Level 3 (02465) Diagnoses ASCUS with positive high risk HPV cervical R87.610; R87.810
--- OUTSIDE RECORDS SUMMARY | 2024-11-29 16:15 | XMS_ITS | Encounter Summary ---
Author Organization [employer] Address [address] [place] [address] Care Team Providers Care Oracle Brm Developer Name Role Phone Federica Angel MD Primary Care Prov ider Reason for Visit * Reason Onset Date Comments SPECIAL PROCEDURE 11/15/2024 Encounter Details Date Type Department Care Team (Late st Contact Info) Description 11/15/2024 Telephone Gastroenterology - [address] [facility] [address] [place] [address] Loan Nelson MA SPECIAL PROCEDURE Social History Tobacco Use Types Packs/Day Years [...] Progress Notes * Loan Nelson MA - 11/27/2024 12:00 PM EDT Scheduled. * Zabrina Main - 11/27/2024 10:46 AM EDT Pt returning call to book, needs service unit operator, please call with digital account executive * Vee Sanchez - 11/21/2024 8:53 AM EDT 3rd attempt to schedule an appointment patient left message to call back and letter sent * Megan Orozco MA - 11/19/2024 2:22 PM EDT 2nd attempt to schedule an appointment patient left message to call back * Nisa Sanz - 11/19/2024 9:38 AM EDT Pt returning call, please call back. * Loan Nelson MA - 11/15/2024 1:54 PM EDT 1st attempt to schedule an appointment patient left message to call back * Loan Nelson MA - 11/15/2024 11:19 AM EDT ----- Message from Devora Adame NP sent at 11/15/2024 10:50 AM EDT ----- Schedule pt for EGD any MD DX persistent GERD despite PPI Irish speaking only documented in this encounter Plan of Treatment Upcoming Encounters Date Type Department Care Team (Late st Contact Info) Description 04/17/2025 10:35 AM EDT Office Visit Pulmonol - [address] [place] [address] Zoie Chavis NP 175 [facility] [address] [place] [address] documented as of this encounter Visit Diagnoses Not on filedocumented in this encounter Care Teams Oracle Brm Developer Relationship Specialty Start Date End Date Federica Angel MD [address] [place] [address] PCP - General Internal Medicine 07/16/24 documented as of this encounter
--- OUTSIDE RECORDS SUMMARY | 2024-11-29 16:15 | XMS_ITS | Encounter Summary ---
Author Organization [employer] Address [address] [place] [address] Care Team Providers Care Sash Installer Name Role Phone Federica Angel MD Primary Care Prov ider Encounter Details Date Type Department Care Team (Late st Contact Info) Description 05/04/2024 4:13 PM EDT Hospital Encounter TH HISTORIC ENCOUNTERS EASTERN CONVERSION ONLY Federica Angel MD [address] [place] [address] Social History Tobacco Use Types Packs/Day Years [...] Description 04/17/2025 10:35 AM EDT Office Visit [address] [place] [phone] Zoie Chavis, [place] 175 [facility] 200 [place] [address] documented as of this encounter Visit Diagnoses Not on filedocumented in this encounter Care Teams Sash Installer Relationship Specialty Start Date End Date Federica Angel MD PCP - General 06/17/22 07/15/24 documented as of this encounter
--- OUTSIDE RECORDS SUMMARY | 2024-11-29 16:15 | XMS_ITS | Encounter Summary ---
Author Organization [facility] Address [address] [place] [address] Care Team Providers [employer] Name Role Phone Federica Angel MD Primary Care Prov ider Reason for Referral * Hospital - Outpatient (Routine) - Authorized Specialty Diagnoses / Procedures Referred By Jolanta juarez Referred To Contact Gastroenterology Diagnoses Gastroesophageal reflux disease, unspecified whether esophagitis present Procedures EGD Anesthesia - MAC; [facility] ENDOSCOPY Patrice Churchill MD [address] [address] Phone: tel: fax: [facility] Endoscopy [address] [place] [address] Phone: tel: Referral ID Status Reason Start Date Expiration Date V isits Requested Visits Authorized [id number] Authorized 11/27/2024 11/27/2025 1 1 Reason for Visit * Auth/Cert (Routine) Specialty Diagnoses / Procedures Referred By Jolanta juarez Referred To Contact Diagnoses Gastro-esophageal reflux disease without esophagitis Procedures EGD IN EGD FLEXIBLE TRANSORAL DX INCL AYDEN SPEC BY BRUSHING/WASHING [facility] Endoscopy [address] [place] [address] Phone: tel: Referral ID Status Reason Start Date Expiration Date Visits Re quested Visits Authorized [id number] 1 1 Encounter Details Date Type Department Care Team (Latest Contact Info) Description 11/28/2024 1:56 PM EDT Hospital Encounter [facility] Endoscopy [address] [place] [phone] Patrice Churchill MD 229 [facility] [address] [place] [address] Bashir Morales CRNA [address] [address] Waldemar Locke MD [address] [place] [address] Gastroesophageal reflux disease, unspecified whether esophagitis present Social History Tobacco Use Types Packs/Day Years [...] Sign Reading Time Taken Comments Blood Pressure 144/98 11/28/2024 3:57 PM EDT Pulse 88 11/28/2024 3:57 PM EDT Temperature 36.1 ??C (97 ??F) 11/28/2024 3:37 PM EDT Respiratory Rate 18 11/28/2024 3:57 PM EDT Oxygen Saturation 98% 11/28/2024 3:57 PM EDT Inhaled Oxygen Concentration - - Weight - - Height - - Body Mass Index - - documented in this encounter Progress Notes * Stacy Crews RN - 11/28/2024 3:42 PM EDT Problem: Cognitive:Periop Procedure - Minor Goal: Knowledge of disease or condition will improve Outcome: Adequate for Discharge Problem: Sensory:Periop Procedure - Minor Goal: Demonstrates/reports adequate pain control Outcome: Adequate for Discharge The patient verbalized understanding of discharge instructions. Fall risk reviewed. Call tapia at bedside. * Carrol Skinner RN - 11/28/2024 2:20 PM EDT Verbalizes understanding of discharge teaching. Problem: Cognitive:Periop Procedure - Minor Goal: Knowledge of disease or condition will improve Outcome: Progressing Problem: Sensory:Periop Procedure - Minor Goal: Demonstrates/reports adequate pain control Outcome: Progressing documented in this encounter H&P Notes * Patrice Churchill MD - 11/28/2024 3:30 PM EDT Pre-Op Diagnosis: Epigastric pain Proposed Procedure: EGD Performing Surgeon/MD/Endoscopist: Patrice Churchill MD Medical/History: Past Medical History: Diagnosis Date Anxiety 04/21/2018 DX:Anxiety Asthma DX:Asthma Complex cyst of right ovary 06/30/2017 DX:Complex cyst of right ovary Fibroids, submucosal 06/30/2017 DX:Fibroids, submucosal GERD (gastroesophageal reflux disease) Hypertension 05/31/2017 DX:Hypertension Migraine Seizure ([facility] V24, [facility] V28) 04/21/2018 DX:Seizure ([facility]) Sleep apnea History reviewed. No pertinent surgical history. Medications/Allergies: Prior to Admission medications Medication Sig Start Date End Date Taking? Authorizing Provider amLODIPine (NORVASC) 10 mg tablet Take 1 tablet (10 mg total) by mouth 1 (one) time each day. 04/20/24 Yes Historical Provider, ferrous sulfate 325 mg (65 mg iron) EC tablet Take 1 tablet (325 mg total) by mouth 1 (one) time each day with breakfast. Do not crush, chew, or split. 09/14/24 Yes FANG Paredes fluticasone propionate (FLONASE) 50 mcg/actuation nasal spray Administer 2 sprays into each nostril1 (one) time each day. Shake gently. Before first use, prime pump. After use, clean tip and replacecap. 07/16/24 Yes Zoie Chavis NP losartan (COZAAR) 100 mg tablet Take 1 tablet (100 mg total) by mouth 1 (one) time each day. 04/20/24 Yes Historical Provider, omeprazole OTC (PriLOSEC OTC) 20 mg EC tablet Take 1 tablet (20 mg total) by mouth 1 (one) time each day. Do not crush, chew, or split. 10/18/24 10/18/25 Yes Carolina Adame NP sertraline (ZOLOFT) 100 mg tablet Take 1 tablet (100 mg total) by mouth 1 (one) time each day. Yes Historical Provider, SUMAtriptan (IMITREX) 50 mg tablet 06/14/23 Yes Historical Provider, Ventolin HFA 90 mcg/actuation inhaler INHALE 2 PUFFS INTO THE LUNGS EVERY 6 HOURS NEEDED FOR COUGH OR WHEEZING. 07/12/24 Yes Zoie Chavis NP Arnuity Ellipta 100 mcg/actuation blister with device inhaler Inhale 1 puff by mouth 1 (one) time each day. Rinse mouth after use. 10/15/24 04/13/25 Zoie Chavis NP Patient Age:39 y.o. Vitals: Vitals: 11/28/24 1428 Pulse: 95 Resp: 18 Temp: 36.7 ??C (98 ??F) Physical Exam: Mental Status: Clear HEENT: WNL Heart: WNL Lungs: WNL Abdomen: WNL Extremities: WNL Neuro: WNL Labs: Imaging: Diagnosis/Plan: EGD documented in this encounter Procedure Notes * Stacy Crews RN - 11/28/2024 3:49 PM EDT The patient tolerating PO. MD discussed results with patient. All personal belongings returned to patient. documented in this encounter Plan of Treatment Upcoming Encounters Date Type Department Care Team (Late st Contact Info) Description 04/17/2025 10:35 AM EDT Office Visit Pulmonolgy - [place] [address] [place] [phone] Zoie Chavis NP [address] [place] [address] Pending Results Name Type Priority Associated Diagnoses Date /Time POC , urine NO CHARGE screening manually resulted Point of Care Testing Routine 11/28/2024 2:14 PM EDT Scheduled Orders Name Type Priority Associated Diagnoses Orde r Schedule POC , urine NO CHARGE screening manually resulted Point of Care Testing Routine Once for 1 Occurrences starting 11/28/2024 until 11/28/2024 documented as of this encounter Procedures Procedure Name Priority Date/Time Associated Diagnosis Comments EGD Routine 11/28/2024 3:36 PM EDT Gastroesophageal reflux disease, unspecified whether esophagitis present documented in this encounter Results * EGD Anesthesia - MAC; [facility] ENDOSCOPY (11/28/2024 3:36 PM EDT) Anatomical Region Laterality Modality Endoscopy 11/28/2024 3:24 PM EDT Impressions 11/28/2024 3:37 PM EDT - Normal esophagus. ? - Normal stomach. ? - Normal examined duodenum. ? - No specimens collected. Recommendation: ?- Continue present medications. Narrative 11/28/2024 3:37 PM EDT [facility] GI Patient Name: Kristi Thomason Procedure Date: 11/28/2024 3:24 PM Date of : 1985 Age: 39 Room: ROOM 17 Gender: Female Note Status: Finalized Attending MD: Patrice Churchill MD, Procedure Date No Time: 11/28/2024 Procedure: ? Upper GI endoscopy Indications: ? Epigastric abdominal pain Providers: ? Patrice Churchill MD Referring MD: ?Patrice Churchill MD Medicines: ? Propofol per Anesthesia Complications: ? No immediate complications. Estimated Blood Loss: ? Estimated blood loss: none. Procedure: ? Pre-Anesthesia Assessment: ? - ASA Grade Assessment: II - A patient with mild ? systemic disease. ? After obtaining informed consent, the endoscope was ? passed under direct vision. Throughout the procedure, ? the patient's blood pressure, pulse, and oxygen ? saturations were monitored continuously.The Olympus ? Gastroscope was introduced through the mouth, and ? advanced to the second part of duodenum. The upper GI ? endoscopy was accomplished without difficulty. The ? patient tolerated the procedure well. Findings: ?The esophagus was normal. ? The stomach was normal. ? The examined duodenum was normal. Procedure Code(s): ? --- Professional --- ? 18699, Esophagogastroduodenoscopy, flexible, ? transoral; diagnostic, including collection of ? specimen(s) by brushing or washing, when performed ? (separate procedure) Diagnosis Code(s): ? --- Professional --- ? R10.13, Epigastric pain CPT copyright 2020 [employer] [place] [employer]. All rights reserved. The codes documented in this report are preliminary and upon vehicle operator review may be revised to meet current compliance requirements. Patrice Churchill MD 11/28/2024 3:37:03 PM This report has been signed electronically.Patrice Churchill MD Number of Addenda: 0 Note Initiated On: 11/28/2024 3:24 PM Scope In: Scope Out: ? Endoscopy Department at [facility] - [address] [place] [address], ? [place] [address] Procedure Note Patrice Churchill MD - 11/28/2024 [facility] GI Patient Name: Kristi Thomason Procedure Date: 11/28/2024 3:24 PM Date of : 1985 Age: 39 Room: ROOM 17 Gender: Female Note Status: Finalized Attending MD: Patrice Churchill MD, Procedure Date No Time: 11/28/2024 Procedure: Upper GI endoscopy Indications: Epigastric abdominal pain Providers: Patrice Churchill MD Referring MD: Patrice Churchill MD Medicines: Propofol per Anesthesia Complications: No immediate complications. Estimated Blood Loss: Estimated blood loss: none. Procedure: Pre-Anesthesia Assessment: - ASA Grade Assessment: II - A patient with mild systemic disease. After obtaining informed consent, the endoscope was passed under direct vision. Throughout theprocedure, the patient's blood pressure, pulse, and oxygen saturations were monitored continuously.The Olympus Gastroscope was introduced through the mouth, and advanced to the second part of duodenum. The upperGI endoscopy was accomplished without difficulty. The patient tolerated the procedure well. Findings: The esophagus was normal. The stomach was normal. The examined duodenum was normal. Procedure Code(s): --- Professional --- 09278, Esophagogastroduodenoscopy, flexible, transoral; diagnostic, including collection of specimen(s) by brushing or washing, when performed (separate procedure) Diagnosis Code(s): --- Professional --- R10.13, Epigastric pain CPT copyright 2020 [employer] [place] [employer]. All rights reserved. The codes documented in this report are preliminary and upon vehicle operator reviewmay be revised to meet current compliance requirements. Patrice Churchill MD 11/28/2024 3:37:03 PM This report has been signed electronically.Patrice Churchill MD Number of Addenda: 0 Note Initiated On: 11/28/2024 3:24 PM Scope In: Scope Out: Endoscopy Department at [facility] - [address] [place] [phone] IMPRESSION: - Normal esophagus. - Normal stomach. - Normal examined duodenum. - No specimens collected. Recommendation: - Continue present medications. us Patrice Churchill MD GI~PROCEDURE ORDERABLES Fin al Result documented in this encounter Visit Diagnoses Diagnosis Gastroesophageal reflux disease, unspecified whether esophagitis present documented in this encounter Orders Discharge Count Last Ordered Date First Orde red Date DISCHARGE PATIENT 1 11/28/2024 documented in this encounter Care Teams [employer] T[employer] Relationship Specialty Start Date End Date Federica Angel MD [address] [place] [id number] PCP - General Internal Medicine 07/16/24 documented as of this encounter
--- OUTSIDE RECORDS SUMMARY | 2024-11-29 16:15 | XMS_ITS | Encounter Summary ---
Author Organization [facility] Address [address] [place] [address] Care Team Providers Care Manager [employer] Name Role Phone Federica Angel MD Primary Care Prov ider Encounter Details Date Type Department Care Team (Late st Contact Info) Description 11/28/2024 Telephone Gastroenterology - [address] [facility] [address] [place] [phone] Patrice Churchill MD 229 [facility] [address] [place] [address] Social History Tobacco Use Types Packs/Day Years [...] as of this encounter Progress Notes * Megan Orozco MA - 11/28/2024 9:40 AM EDT Spoke with patient, advised next available is not until December, she opted to keep her appointment today * Yisel Arizmendi - 11/28/2024 8:36 AM EDT PT HAS A EGD APPT. TODAY AND WOULD LIKE TO RESCHEDULE TO A MORNING BECAUSE SHE IS FEEL NAUSEAS documented in this encounter Plan of Treatment Upcoming Encounters Date Type Department Care Team (Late st Contact Info) Description 04/17/2025 10:35 AM EDT Office Visit Pulmonolgy - [place] [address] [facility] [address] [place] [address] Zoie Chavis NP [address] [facility] [address] [place] [address] documented as of this encounter Visit Diagnoses Not on filedocumented in this encounter Care Teams Manager Global Communications Relationship Specialty Start Date End Date Federica Angel MD [address] [place] [address] PCP - General Internal Medicine 07/16/24 documented as of this encounter
--- OUTSIDE RECORDS SUMMARY | 2024-11-29 16:15 | XMS_ITS | Clinical Summary ---
Author Organization 175 [facility] Address [address] [place] [address] Phone Care Team Providers Care Forensic Psychologist Name Role Phone Federica Angel MD Primary [...] replace cap. 16 g 3 4 Active ferrous sulfate 325 mg (65 mg iron) EC tablet Take 1 tablet (325 mg total) by mouth 1 (one) time each day with breakfast. Do not crush, chew, or split. 30 each 5 5 Active Arnuity Ellipta 100 mcg/actuation blister with device inhalerIndication s:Mild persistent asthma without complication Inhale 1 puff by mouth 1 (one) time each day. Rinse mouth after use. 1 each 5 5 04/13/20 25 Active omeprazole OTC (PriLOSEC OTC) 20 mg EC tabletIndications :Epigastric abdominal pain Take 1 tablet (20 mg total) by mouth 1 (one) time each day. Do not crush, chew, or split. 30 tablet 11 5 10/19/19 26 Active Active Problems Problem Noted Date Diagnosed Date Moderate obstructive sleep apnea-hypopnea syndro me 07/14/2023 Overview (06/11/2024): [facility] Home Sleep Apnea Test: Date 06/06/2023 [...] Encounters Date Type Department Care Team Description 11/28/2024 3:29 PM EDT Anesthesia Event [facility] [address] [place] [phone] Johann Stein MD Spencer, Mark A, MD 11/28/2024 1:56 PM EDT Hospital Encounter [facility] [address] [place] [phone] Patrice Churchill MD Steele, Matthew G, CRNA Spencer, Mark A, MD Gastroesophageal reflux disease, unspecified whether esophagitis present 11/28/2024 Telephone Gastroenterology - [address] [phone] Patrice Churchill MD 11/15/2024 10:30 AM EDT Office Visit Gastroenterology - [address] [phone] Carolina Adame NP Gastroesophageal reflux disease, unspecified whether esophagitis present (Primary Dx) 11/15/2024 Telephone Gastroenterology - [address] [phone] Loan Nelson MA SPECIAL PROCEDURE [facility] [address] [phone] Megan Keane MA DME-cpap supplies 10/18/2024 9:20 AM EDT Office Visit Gastroenterology - [address] [phone] Carolina Adame NP Epigastric abdominal pain; Microcytic anemia 10/15/2024 10:30 AM EDT Office Visit Pulmonolgy [facility] [address] [phone] Zoie Chavis NP Moderate obstructive sleep apnea-hypopnea syndrome (Primary Dx); Mild persistent asthma without complication; Obesity (BMI 30-39.9); Allergic rhinitis, unspecified seasonality, unspecified trigger 10/02/2024 Telephone Adult Medicine [address] [phone] Federica Novoa MD Forms/questionnaires (DMV from June of 2024) 09/24/2024 8:40 AM EST - 09/24/2024 11:59 PM EST Hospital Encounter Radiology Department - [address] [phone] Epigastric abdominal pain Discharge Disposition: Home or Self Care 09/20/2024 Telephone Adult Medicine [address] [phone] Federica Novoa MD information needed 09/14/2024 10:00 AM EST Office Visit Adult Medicine [address] [phone] Jaqueline Garcia PA Epigastric abdominal pain (Primary Dx); Microcytic anemia; Primary hypertension 09/12/2024 Telephone Adult Medicine [address] [phone] Federica Novoa MD er follow up 09/03/2024 Telephone Adult Medicine [address] [phone] Federica Novoa MD Shoulder Pain (left); Abdominal Pain (Upper middle ) from Last 3 Months Immunizations Name Administration [...] (CMS/HCC V24, CMS/HCC V28) 04/21/2018 DX:Seizure (HCC) Migraine Sleep apnea GERD (gastroesophageal reflux disease) Family History Medical History Relation Name Comments [...] 10:35 AM EDT Office Visit Pulmonolgy - [place] 175 [facility] [address] [place] [phone] Zoie Chavis NP 175 [facility] [address] [place] [address] Health Maintenance Due Date Last Done Comments [...] Gastroesophageal reflux disease, unspecified whether esophagitis present LIPID PANEL WITH REFLEX TO DIRECT LDL Routine 10/19/2024 9:04 AM EDT Primary hypertension COMPREHENSIVE METABOLIC PANEL Routine 10/19/2024 9:04 AM EDT Primary hypertension IRON AND TIBC Routine 10/19/2024 9:04 AM EDT Microcytic anemia MT SLEEP STUDY ATTENDED Routine 10/12/2024 3:06 PM EDT EXTERNAL CLINICAL LAB Routine 10/11/2024 9:27 AM EDT EXTERNAL CLINICAL LAB Routine 10/10/2024 1:10 PM EDT US ABDOMEN COMPLETE Routine 09/24/2024 9 :25 AM EST Epigastric abdominal pain DEPRESSION SCREENING Routine 04/21/2024 PAP SMEAR Routine 03/07/2022 from Last 3 Months or Most Recently Relevant to Health Maintenance Results * EGD Anesthesia - MAC; [facility] END[facility]COPY (11/28/2024 3:36 PM EDT) Anatomical Region Laterality Modality Endoscopy 11/28/2024 3:24 PM EDT Impressions 11/28/2024 3:37 PM EDT - Normal esophagus. ? - Normal stomach. ? - Normal examined duodenum. ? - No specimens collected. Recommendation: ?- Continue present medications. Narrative 11/28/2024 3:37 PM EDT [facility] Patient Name: Kristi Thomason Procedure Date: [...] Procedure Code(s): ? --- Professional --- ? 84089, Esophagogastroduodenoscopy, flexible, ? transoral; diagnostic, including collection of ? specimen(s) by brushing or washing, when performed ? (separate procedure) Diagnosis Code(s): ? --- Professional --- ? R10.13, Epigastric pain CPT copyright 2020 [employer]. All rights reserved. The codes documented in this report are preliminary and upon certified medical records coder review may be revised to meet current compliance requirements. Patrice Churchill MD 11/28/2024 3:37:03 PM This report has been signed electronically.Patrice Churchill MD Number of Addenda: 0 Note Initiated On: 11/28/2024 3:24 PM Scope In: Scope Out: ? Endoscopy Department at [facility] - [address] [place] [address], ? [place] [phone] Procedure Note Patrice Churchill MD - 11/28/2024 [facility] Patient Name: Kristi Thomason Procedure Date: [...] was normal. Procedure Code(s): --- Professional --- 39553, Esophagogastroduodenoscopy, flexible, transoral; diagnostic, including collection of specimen(s) by brushing or washing, when performed (separate procedure) Diagnosis Code(s): --- Professional --- R10.13, Epigastric pain CPT copyright 2020 [employer]. All rights reserved. The codes documented in this report are preliminary and upon certified medical records coder reviewmay be revised to meet current compliance requirements. Patrice Churchill MD 11/28/2024 3:37:03 PM This report has been signed electronically.Patrice Churchill MD Number of Addenda: 0 Note Initiated On: 11/28/2024 3:24 PM Scope In: Scope Out: Endoscopy Department at [facility] - [address] [place] [phone] IMPRESSION: - Normal esophagus. - Normal stomach. - Normal examined duodenum. - No specimens collected. Recommendation: - Continue present medications. Patrice Churchill MD GI~PROCEDURE ORDERABLES Fin al Result * (ABNORMAL) Lipid panel with reflex to direct LDL (10/19/2024 9:04 AM EDT) Cholesterol 186 0 - 200 mg/dL LAB CHEMISTRY METHOD 10/19/2024 3:10 PM EDT [facility] Triglycerides 53 0 - 150 mg/dL LAB CHEMISTRY METHOD 10/19/2024 3:10 PM EDT [facility] HDL 62 >=40 mg/dL LAB CHEMISTRY METHOD 10/19/2024 3:10 PM EDT [facility] LDL Calculated 113(H) 0 - 100 mg/dL LAB CHEMISTRY METHOD 10/19/2024 3:10 PM EDT [facility] VLDL Cholesterol Dariusz 10.6 mg/dL LAB CHEMISTRY METHOD 10/19/2024 3:10 PM [facility] Non HDL Chol. (LDL+VLDL) 124 <145 mg/dL LAB CHEMISTRY METHOD 10/19/2024 3:10 PM EDT [facility] Chol/HDL Ratio 3.0 0.0 - 4.4 LAB CHEMISTRY METHOD 10/19/2024 3:10 PM EDT [facility] Blood Venous blood specimen / Unknown Venipuncture / Unknown 10/19/2024 9:04 AM EDT 10/19/2024 9:04 AM EDT Federica Angel MD LAB BLOOD ORDERABL ES Final Result Performing Organization Address [facility]/ZIP Co de Phone Number [facility] [address] [place] [address], [place] [phone] * (ABNORMAL) Iron and TIBC (10/19/2024 9:04 AM EDT) Iron 23(L) 40 - 150 mcg/dL LAB CHEMISTRY METHOD 10/19/2024 3:10 PM EDT [facility] TIBC 433 250 - 450 mcg/dL LAB CHEMISTRY METHOD 10/19/2024 3:10 PM EDT [facility] Iron Saturation 5(L) 15 - 50 % LAB CHEMISTRY METHOD 10/19/2024 3:10 PM EDT [facility] Blood Venous blood specimen / Unknown Venipuncture / Unknown 10/19/2024 9:04 AM EDT 10/19/2024 9:04 AM EDT us Jaqueline HEADLEY LAB BLOOD ORDERABLES Final Resul t Performing Organization Address [facility] de Phone Number [facility] [address] [place] [address], [place] [phone] * Comprehensive metabolic panel (10/19/2024 9:04 AM EDT) Sodium 136 133 - 145 mmol/L LAB CHEMISTRY METHOD 10/19/2024 3:10 PM EDT [facility] Potassium 4.3 3.5 - 5.5 mmol/L LAB CHEMISTRY METHOD 10/19/2024 3:10 PM [facility] Chloride 104 96 - 110 mmol/L LAB CHEMISTRY METHOD 10/19/2024 3:10 PM [facility] CO2 24 21 - 32 mmol/L LAB CHEMISTRY METHOD 10/19/2024 3:10 PM [facility] Anion Gap 8 3 - 11 LAB CHEMISTRY METHOD 10/19/2024 3:10 PM [facility] Glucose 84 70 - 100 mg/dL LAB CHEMISTRY METHOD 10/19/2024 3:10 PM [facility] BUN 15 5 - 25 mg/dL LAB CHEMISTRY METHOD 10/19/2024 3:10 PM [facility] Creatinine 0.86 0.50 - 1.10 mg/dL LAB CHEMISTRY METHOD 10/19/2024 3:10 PM [facility] eGFR 87 >=60 mL/min/1. 73m2 LAB CHEMISTRY METHOD 10/19/2024 3:10 PM [facility] Comment:Calculation based on the??Chronic Kidney Disease Epidemiology Collaboration (CKD-EPI) equation refit??without adjustment for race. BUN/Creatinine Ratio 17.4 LAB CHEMISTRY METHOD 10/19/2024 3:10 PM [facility] Calcium 9.2 8.5 - 10.5 mg/dL LAB CHEMISTRY METHOD 10/19/2024 3:10 PM [facility] AST (SGOT) 11 10 - 42 unit/L LAB CHEMISTRY METHOD 10/19/2024 3:10 PM [facility] ALT (SGPT) 16 10 - 60 unit/L LAB CHEMISTRY METHOD 10/19/2024 3:10 PM [facility] Alkaline Phosphatase 77 42 - 121 unit/L LAB CHEMISTRY METHOD 10/19/2024 3:10 PM [facility] Total Protein 8.0 6.0 - 8.0 g/dL LAB CHEMISTRY METHOD 10/19/2024 3:10 PM EDT [facility] Albumin 4.1 3.2 - 5.0 g/dL LAB CHEMISTRY METHOD 10/19/2024 3:10 PM EDT [facility] Total Bilirubin 0.4 0.0 - 1.4 mg/dL LAB CHEMISTRY METHOD 10/19/2024 3:10 PM EDT [facility] Blood Venous blood specimen / Unknown Venipuncture / Unknown 10/19/2024 9:04 AM EDT 10/19/2024 9:04 AM EDT Federica Angel MD LAB BLOOD ORDERABL ES Final Result [facility] [address] [place] [address], * General sleep study (10/12/2024 3:06 PM EDT) Historical Provider SLEEP CENTER ORDERABLES F inal Result * External clinical lab (10/11/2024 9:27 AM EDT) Only the most recent of2 resultswithin the time period is included. Historical Provider LAB BLOOD ORDERABLES Mily l Result * US Abdomen Complete (09/24/2024 9:25 AM EST) Anatomical Region Laterality Modality Body Ultrasound 09/24/2024 9:50 AM EST Impressions 09/24/2024 9:52 AM EST Cholelithiasis. -------- FINAL REPORT -------- Dictated By: Starr Argueta Dictated Date: 09/24/2024 09:50 ET Assigned Physician: Starr Argueta Reviewed and Electronically Signed By: Starr Argueta Signed Date: 09/24/2024 09:52 ET Workstation ID: [id number] Transcribed By: Self Edit Transcribed Date: 09/24/2024 [...] Signed Date: 09/24/2024 09:52 ET Workstation ID: [id number] Transcribed By: Self Edit Transcribed Date: 09/24/2024 09:50 ET us Jaqueline Jose PEREZ US PROCEDURES Final Result * Depression Screening (04/21/2024) Depression Screening Abstracted us Historical Provider HEALTH MAINTENANCE Final Result * Hm Pap Smear (03/07/2022) HM Pap smear No interpretation , Abstracted us Historical Provider HEALTH MAINTENANCE Final Result from Last 3 Months or Most Recently Relevant to Health Maintenance [place] [address] [place] [address] [employer] PLAN Care Teams Forensic Psychologist Relationship Specialty Start Date End Date Federica Angel MD [address] [place] [phone] PCP - General Internal Medicine 07/16/24
--- OUTSIDE RECORDS SUMMARY | 2024-11-29 16:15 | XMS_ITS | Encounter Summary ---
Author Organization [facility] Address [address] [place] [address] Care Team Providers Care Contract Technical Writer Name Role Phone Federica Angel MD Primary Care Prov ider Reason for Visit * Auth/Cert (Routine) Specialty Diagnoses / Procedures Referred By Contac t Referred To Contact Diagnoses Gastro-esophageal reflux disease without esophagitis Procedures EGD UT EGD FLEXIBLE TRANSORAL DX INCL AYDEN SPEC BY BRUSHING/WASHING [facility] [address] [place] [address] Phone: tel: Referral ID Status Reason Start Date Expiration Date Visits Re quested Visits Authorized [id number] 1 1 Encounter Details Date Type Department Care Team (Late st Contact Info) Description 11/28/2024 3:29 PM EDT Anesthesia Event [facility] [address] [place] [address] Johann Stein MD [address] [place] [phone] Waldemar Locke MD [address] [place] [phone] Anesthesia Record Procedure Summary Procedure Name Responsible Anesthesiologist Anesthesia Start Time Anesthesia Stop Time EGD Johann Stein MD 11/28/24 1529 11/28/24 1539 Events Date Time Event Comment 11/28/2024 1418 1529 In Room 1529 An Start 1529 An Start Data The patient wa s reevaluated immediately before moderate or deep sedation use and before anesthesia induction. 1529 Anesthesia Ready 1530 Ellis Time out done 1536 an stop data 1536 Transport to PACU/ICU Patien t reassessed and ready for transfer, airway stable. Patient transport to designated recovery area. {Transport to PACU/ICU:[id number]} 1536 Out of Room 1537 Handoff to RN I completed my handoff to the receiving nurse during which we: 1. Identified the patient 2. Identified the responsible provider 3. Reviewed the pertinent medical history 4. Discussed the surgical course 5. Reviewed intra-op anesthesia management and issues during anesthesia 6. Set expectations for post-procedure period 7. Allowed opportunity for questions and acknowledgement of understanding. 1539 An Stop Meds Name Total propofol (DIPRIVAN) injection 10 mg/mL 1 50 mg lidocaine PF (XYLOCAINE-MPF) local injec tion 2% 100 mg lactated Ringer's infusion 200 mL * Agents No agents on file. * Blood No blood administrations on file. Lines, Drains, and Airways Type Details Placement Removal Peripheral IV Placement Date: 11/01 ; Placement Time: 1435; Catheter Size: 20 G; Orientation: Right, Posterior; Location: Hand; Insertion Attempts: 1; Patient Tolerance: Tolerated well; Removal Date: 11/28/24; Removal Time: 1541 11/28/24 1435 by Carrol Skinner RN 11/28/24 1541 by Stacy Crews RN documented in this encounter Social History Tobacco Use Types Packs/Day [...] as of this encounter Progress Notes * Bashir Morales CRNA - 11/28/2024 3:39 PM EDT Patient: Kristi Thomason Procedure Summary Date: 11/28/24 Room / Location: [facility] Anesthesia Start: 1529 Anesthesia Stop: 153 Procedure: EGD Diagnosis: Gastroesophageal reflux disease, unspecified whether esophagitis present (Epigastric abdominal pain) Scheduled Providers: Patrice Churchill MD; Bashir Morales CRNA; Waldemar Locke MD Responsible Provider: Johann Stein MD Anesthesia Type: MAC ASA Status: 2 Anesthesia Plan: MAC Last Vitals: Vitals Value Taken Time BP 11/28/24 1539 Temp 11/28/24 1539 Pulse 11/28/24 1539 Resp 11/28/24 1539 SpO2 11/28/24 1539 No data recorded Anesthesia Post Evaluation Patient location during evaluation: PACU Patient participation: waiting for patient participation Level of consciousness: responsive to light touch Pain score: 0 Pain management: adequate Airway patency: patent Anesthetic complications: no Cardiovascular status: acceptable Respiratory status: acceptable Hydration status: acceptable Nausea: No Vomiting: No There were no known notable events for this encounter. * Waldemar Locke MD - 11/28/2024 2:16 PM EDT 39 y.o. female scheduled for [EGD [GI2]] Ht Readings from Last 1 Encounters: 11/15/24 1.549 m (61 ) Wt Readings from Last 1 Encounters: 11/15/24 74.2 kg (163 lb 9.6 oz) There is no height or weight on file to calculate BMI. Past Medical History: Diagnosis Date Anxiety 04/21/2018 DX:Anxiety Asthma DX:Asthma Complex cyst of right ovary 06/30/2017 DX:Complex cyst of right ovary Fibroids, submucosal 06/30/2017 DX:Fibroids, submucosal Hypertension 05/31/2017 DX:Hypertension Seizure (CMS/HCC V24, CMS/HCC V28) 04/21/2018 DX:Seizure (HCC) No past surgical history on file. Denies anesthesia complications No Known Allergies Current Outpatient Medications on File Prior to Encounter Medication Sig Dispense Refill amLODIPine (NORVASC) 10 mg tablet Take 1 tablet (10 mg total) by mouth 1 (one) time each day. Arnuity Ellipta 100 mcg/actuation blister with device inhaler Inhale 1 puff by mouth 1 (one) time each day. Rinse mouth after use. 1 each 5 ferrous sulfate 325 mg (65 mg iron) EC tablet Take 1 tablet (325 mg total) by mouth 1 (one) time each day with breakfast. Do not crush, chew, or split. 30 each 5 fluticasone propionate (FLONASE) 50 mcg/actuation nasal spray Administer 2 sprays into each nostril1 (one) time each day. Shake gently. Before first use, prime pump. After use, clean tip and replacecap. 16 g 3 losartan (COZAAR) 100 mg tablet Take 1 tablet (100 mg total) by mouth 1 (one) time each day. omeprazole OTC (PriLOSEC OTC) 20 mg EC tablet Take 1 tablet (20 mg total) by mouth 1 (one) time each day. Do not crush, chew, or split. 30 tablet 11 sertraline (ZOLOFT) 100 mg tablet Take 1 tablet (100 mg total) by mouth 1 (one) time each day. SUMAtriptan (IMITREX) 50 mg tablet Ventolin HFA 90 mcg/actuation inhaler INHALE 2 PUFFS INTO THE LUNGS EVERY 6 HOURS NEEDED FOR COUGH OR WHEEZING. 18 each 6 No current facility-administered medications on file prior to encounter. Current In-hospital Medications Social History Tobacco Use Smoking status: Never Smokeless tobacco: Never Substance Use Topics Alcohol use: No Drug use: No Visit Vitals Smoking Status Never Available cardiac studies reviewed: No results found. EKG No results found for this or any previous visit (from the past 4464 hours). ECHO No results found for this or any previous visit. CATH No results found for this or any previous visit. LABS: No results found for: WBC , HGB , HCT , MCV , PLT Lab Results Component Value Date GLUCOSE 84 10/19/2024 CALCIUM 9.2 10/19/2024 NA 136 10/19/2024 K 4.3 10/19/2024 CO2 24 10/19/2024 CL 104 10/19/2024 BUN 15 10/19/2024 CREATININE 0.86 10/19/2024 No results found for: INR , PROTIME No results found for: PTT Denies cardiac, pulm, neuro, hepatic or renal s/sx. Patient meets ASA guidelines for NPO status. > 4 mets without anginal symptoms. Relevant labs, vitals, imaging, cardiac and pulmonary studies as well as HPI, Meds, Allergies, ROS,PMH, PSH, SH, and FH reviewed. Relevant Problems Cardio (+) Hypertension Pulmonary (+) Asthma (+) Moderate obstructive sleep apnea-hypopnea syndrome Other (+) Fibroids, submucosal Clinical information reviewed: OB Status Anesthesia Plan ASA 2 Anesthesia Plan: MAC Anesthesia Considerations MAC Anesthesia Risks Discussed dental injury, allergic reaction, serious complications and corneal abrasion Induction method: N/A Anesthetic plan and risks discussed with patient. Anesthesia Plan discussed with PLATINUM AND PALLADIUM KETTLE TENDER. Anesthesia Evaluation Patient summary reviewed and Nursing notes reviewed History of anesthetic complications Airway Mallampati: II Thyromental distance: >3 FB Neck ROM: fullnot intubatedno noted risk Dental Pulmonary breath sounds clear to auscultation (+) asthma, sleep apnea Cardiovascular (+) hypertension Rhythm: regular Rate: normal Neuro/Psych (+) seizures Comments: Last 2014. Pt. Can't remember history. No meds anymore. Mental Status: alert and oriented GI/Hepatic/Renal Endo/Other Abdominal Abdomen: soft. Bowel sounds: normal. PONV RISK SCORE: 2 There were no vitals filed for this visit. SpO2 Readings from Last 1 Encounters: 10/15/24 99% No results found for: WBC , RBC , HGB , HCT , PLT , MCV No Known Allergies STOP BANG: No data recorded NPO Status: No data recorded documented in this encounter Plan of Treatment Upcoming Encounters Date Type Department Care Team (Late st Contact Info) Description 04/17/2025 10:35 AM EDT Office Visit Pulmonolgy - [place] [address] [facility] [address] [place] [address] Zoie Chavis NP [address] [facility] [address] [place] [address] documented as of this encounter Visit Diagnoses Not on filedocumented in this encounter Administered Medications Inactive Administered Medications - up to 3 most recent administrations Medication Order MAR Action Action Date Dose Rate Site lactated Ringer's infusion intravenous, Continuous PRN, Starting on Tue11/28/24 at 1525, Anesthesia Intraprocedure New Bag 11/28/2024 3:25 PM EDT 125 mL/hr lidocaine (PF) (XYLOCAINE-MPF) 2 % injection injection, As needed, Starting on Tue11/28/24 at 1532, Anesthesia Intraprocedure Given 11/28/2024 3:32 PM EDT 100 mg propofoL (DIPRIVAN) injection intravenous, As needed, Starting on Tue11/28/24 at 1532, Anesthesia Intraprocedure Given 11/28/2024 3:32 PM EDT 150 mg documented in this encounter Care Teams Contract Technical Writer Relationship Specialty Start Date End Date Federica Angel MD [address] [place] [phone] PCP - General Internal Medicine 07/16/24 documented as of this encounter
== END 2024-11-29 14:14 | disposition home or self-care (01) ==
LOC: HO.HWS 14:01
PROVIDERS: PCP Internal Medicine; Visit Provider Obstetrics & Gynecology
DX: R87.610 Atypical squamous cells of undetermined significance on cytologic smear of cervix (ASC-US) (principal); R87.810 Cervical high risk human papillomavirus (HPV) DNA test positive
CPT/HCPCS: 99213

== ENCOUNTER → 2024-11-29 14:01 | Outpatient (BNVA) | payer OTHER, SELFPAY | PROVIDERS: PCP Internal Medicine; Visit Provider Obstetrics & Gynecology ==

== ENCOUNTER 2025-04-04 12:07 | Outpatient (REF) | payer OTHER, SELFPAY ==
--- OUTSIDE RECORDS SUMMARY | 2024-05-04 16:13 | XMS_ITS | Encounter Summary ---
Author Organization [employer] Address [address] [place] [address] Care Team Providers Care Therapeutic Activities Services Worker Name Role Phone Federica Angel MD Primary Care Prov ider Encounter Details Date Type Department Care Team (Late st Contact Info) Description 05/04/2024 4:13 PM EDT Hospital Encounter [facility] ONLY Federica Angel MD [address] [place] [address] Social History Tobacco Use Types Packs/Day Years Used Date Smoking Tobacco: Never Smokeless Tobacco: Never Alcohol Use Standard Drinks/Week Comments No 0 (1 standard drink = 0.6 oz pur e alcohol) Interpersonal Safety Answer Date Record ed Physical Abuse 11/28/2024 Verbal Abuse 11/28/2024 Comments No Sex and Gender Information Value Date Recorded Sex Assigned at Not on file Legal Sex Female 2:07 AM EST Gender Identity Not on file Sexual Orientation Not on file documented as of this encounter Plan of Treatment Upcoming Encounters Date Type Department Care Team (Late st Contact Info) Description 04/17/2025 10:35 AM EDT Office Visit [address] [place] [address] Zoie Chavis NP [address] [place] [address] documented as of this encounter Visit Diagnoses Not on filedocumented in this encounter Care Teams Therapeutic Activities Services Worker Relationship Specialty Start Date End Date Federica Angel MD PCP - General 06/17/22 07/15/24 documented as of this encounter
--- NOTE | ~2025-04-04 | MM_ITS ---
EXAMINATION: MM SCREENING DIGITAL BREAST TOMOSYNTHESIS, BILATERAL CLINICAL INFORMATION: Screening. Asymptomatic. COMPARISON: Mammography: Comparison is made with available priors TECHNIQUE: Digital breast mammography with tomosynthesis is performed in both the craniocaudal and mediolateral oblique views along with computer-aided detection (CAD). FINDINGS: The breasts are heterogeneously dense, which may obscure small masses (ACR BI-RADS breast composition Category c). There are no significant masses, abnormal calcifications, or other abnormalities. MM/MM tomosynthesis screening BI IMPRESSION: No mammographic evidence of malignancy. ASSESSMENT: BI-RADS BI-RADS 1 - Negative RECOMMENDATION: Routine annual mammography screening. 1 year F/U This examination should not preclude the clinical evaluation of a suspicious palpable abnormality. This patient's information was entered into a reminder system with a target due date for their next mammogram. Electronically signed by: Alysa Brooks DO 04/08/2025 10:52 AM EDT
--- OUTSIDE RECORDS SUMMARY | 2025-04-04 13:38 | XMS_ITS | Clinical Summary ---
Author Organization [facility] Address [address] [place] [address] Care Team Providers Care Transportation Equipment Painter Name Role Phone Waldemar Fuornier MD Primary Care Provider [phone] Allergies No known active allergies Medications Medication [...] 90 10/09/2021 9:39 AM EST Temperature 37.3 C (99.2 F) 10/09/2021 9:39 AM EST Respiratory Rate - - Oxygen Saturation 100% [...] (P ap Smear) 2004 Influenza Vaccine (#1) 2025 Pneumococcal Vaccine Aged Out No long er eligible based on patient's age to complete this topic RSV Ped < 20 months Aged Out No longe r eligible based on patient's age to complete this topic Care Teams Transportation Equipment Painter Relationship Specialty Start Date End Date Waldemar Fournier MD PCP - General Internal Medicine 08/04/21
--- OUTSIDE RECORDS SUMMARY | 2025-04-04 13:39 | XMS_ITS | Encounter Summary ---
Author Organization [facility] Address [address] [place] [address] Care Team Providers Care Tours Hostess Name Role Phone Federica Angel MD Primary Care Prov ider Reason for Visit * Reason Onset Date Comments Forms/questionnaires 03/15/2025 Encounter Details Date Type Department Care Team (Late st Contact Info) Description 03/15/2025 Telephone [facility] [place] [address] [facility] [address] [place] [address] Zoie Chavis, [place] [address] [place] [address] Social History Tobacco Use Types Packs/Day Years [...] of this encounter Progress Notes * Megan Tucker MA - 03/18/2025 11:00 AM EDT We wait until she signed the form * Kalina Hurley - 03/15/2025 4:12 PM EDT Carlie from [facility] is calling because they need the last sleep study to be faxed to the [facility]. She will let patient know to come into office to sign release form for sleep study to be sent . [facility] medical release services [address] [address] [facility] [address] * Sandip Rivero - 03/15/2025 3:59 PM EDT Carlie from [facility] partner called requesting updates on [facility], stated that patient dropped off forms. Provided fax number since forms are not in patient chart. Please advice. documented in this encounter Plan of Treatment Upcoming Encounters Date Type Department Care Team (Late st Contact Info) Description 04/17/2025 10:35 AM EDT Office Visit Pulmonolgy - [place] [address] [place] [phone] Zoie Chavis NP [address] [place] [phone] documented as of this encounter Visit Diagnoses Not on filedocumented in this encounter Care Teams Tours Hostess Relationship Specialty Start Date End Date Federica Angel MD [address] [place] [phone] PCP - General Internal Medicine 07/16/24 documented as of this encounter
--- OUTSIDE RECORDS SUMMARY | 2025-04-04 13:39 | XMS_ITS | Clinical Summary ---
Author Organization [facility] Address [address] [place] [address] Phone Care Team Providers Care Control Clerk Auditing Name Role Phone Federica Angel MD Primary Care Prov ider Allergies No known active allergies Medications amLODIPine (NORVASC) 10 mg tablet Take 1 [...] mouth 1 (one) time each day. Active Arnuity Ellipta 100 mcg/actuation blister with [...] 30 tablet 11 10/19/19 25 026 Active fluticasone propionate (FLONASE) 50 mcg/actuation nasal sprayIndications: Mild persistent asthma without complication,Heraclio rgic rhinitis, unspecified seasonality, unspecified trigger SPRAY 2 SPRAYS BY NASAL ROUTE DAILY 48 mL 1 01/14/20 25 Active losartan (COZAAR) 100 mg tablet TAKE 1 TABLET BY MOUTH EVERY DAY (*LABS DUE FOR REFILLS*) 90 tablet 1 01/24/20 25 Active ferrous sulfate 325 mg (65 mg iron) EC tablet TAKE 1 TABLET (325 MG TOTAL) BY MOUTH DAILY WITH BREAKFAST DO NOT CRUSH, CHEW, OR SPLIT 90 tablet 1 03/13/20 25 Active ferrous sulfate 325 mg (65 mg iron) EC tablet Take 1 tablet (325 mg total) by mouth 1 (one) time each day with breakfast. Do not crush, chew, or split. 30 each 5 09/14/19 25 025 Discontinued Active Problems Problem Noted Date Diagnosed Date Moderate obstructive sleep apnea-hypopnea syndro me 07/14/2023 Overview (06/11/2024): [facility] Home Sleep Apnea Test: Date [...] Encounters Date Type Department Care Team Description [facility] [address] [facility] [address] [place] [address] Zoie Chavis NP [facility] [address] [facility] [address] [place] [address] Zoie Chavis NP from Last 3 Months Immunizations Name Administration [...] Seizure (CMS/HCC V24, CMS/HCC V28) 04/21/2018 DX:Seizure ([facility]) Migraine Sleep apnea GERD (gastroesophageal reflux disease) [...] 88 11/28/2024 3:57 PM EDT Temperature 36.1 C (97 F) 11/28/2024 3:37 PM EDT Respiratory Rate 18 [...] 10:35 AM EDT Office Visit Pulmonolgy - [place] [address] [facility] [address] [place] [address] Zoie Chavis, [place] [address] [place] [phone] Health Maintenance Due Date Last Done Comments Breast Cancer Screening 1983 Hepatitis B Vaccines (1 of 3 - 19+ 3-dose series) 2002 HIV Screening 07/10/2022 Hepatitis C Screening 07/10/2022 Social Influencers of Health Screening 07/10/2022 Depression Screening 08/01/2024 04/21/2024 Cervical Cancer Screening: Pap Smear 03/07/2025 03/07/2022 Influenza Vaccine (#1) 2025 Hypertension/CHF/CAD Annual BMP Blood Test 01/08/2026 01/08/2025, 10/19/2024, 03/07/2023 Cholesterol Screening (Lipid Panel) 10/19/2029 10/19/2024, 03/07/2023 DTaP,Tdap,and Td Vaccines (2 - Td or Tdap) 03/07/2033 03/07/2023 Pneumococcal Vaccine: Pediatrics (0 to 5 Years) and At-Risk Patients (6 to 49 Years) Completed 03/07/2023 COVID-19 Vaccine Discontinued HIB [...] Procedure Name Priority Date/Time Associated Diagnosis Comments COMPREHENSIVE METABOLIC PANEL Routine 10/19/2024 9:04 AM EDT Primary hypertension LIPID PANEL WITH REFLEX TO DIRECT LDL Routine 10/19/2024 9:04 AM EDT Primary hypertension DEPRESSION SCREENING Routine 04/21/2024 PAP SMEAR Routine 03/07/2022 from Last 3 Months or Most Recently Relevant to Health Maintenance Results * (ABNORMAL) Lipid panel with reflex to direct LDL (10/19/2024 9:04 AM EDT) Cholesterol 186 0 - 200 mg/dL LAB CHEMISTRY METHOD 10/19/2024 3:10 PM EDT [facility] Triglycerides 53 0 - 150 mg/dL LAB CHEMISTRY METHOD 10/19/2024 3:10 PM EDT [facility] HDL 62 >=40 mg/dL LAB CHE[facility]STRY [facility] LDL Calculated 113(H) 0 - 100 mg/dL LAB CHEMISTRY METHOD 10/19/2024 3:10 PM [facility] VLDL Cholesterol Dariusz 10.6 mg/dL LAB CHEMISTRY METHOD 10/19/2024 3:10 PM [facility] Non HDL Chol. (LDL+VLDL) 124 <145 mg/dL LAB CHEMISTRY METHOD 10/19/2024 3:10 PM EDT [facility] Chol/HDL Ratio 3.0 0.0 - 4.4 LAB CHEMISTRY METHOD 10/19/2024 3:10 PM [facility] Blood Venous blood specimen / Unknown Venipuncture / Unknown 10/19/2024 9:04 AM EDT 10/19/2024 9:04 AM EDT us Federica Angel MD LAB BLOOD ORDERABL ES Final Result [facility] [address] [place] [address], [place] [phone] * Comprehensive metabolic panel (10/19/2024 9:04 AM [...] [facility] Comment:Calculation based on the Chronic Kidney Disease Epidemiology Collaboration (CKD-EPI) equation refit without adjustment for race. BUN/Creatinine Ratio 17.4 LAB CHEMISTRY METHOD 10/19/2024 3:10 PM T [facility] Calcium 9.2 8.5 - 10.5 mg/dL LAB CHEMISTRY METHOD 10/19/2024 3:10 PM T [facility] AST (SGOT) 11 10 - 42 unit/L LAB CHEMISTRY METHOD 10/19/2024 3:10 PM T [facility] ALT (SGPT) 16 10 - 60 unit/L LAB CHEMISTRY METHOD 10/19/2024 3:10 PM T [facility] Alkaline Phosphatase 77 42 - 121 unit/L LAB CHEMISTRY METHOD 10/19/2024 3:10 PM [facility] Total Protein 8.0 6.0 - 8.0 g/dL LAB CHEMISTRY METHOD [facility]24 [facility] Albumin 4.1 3.2 - 5.0 g/dL LAB CHEMISTRY METHOD 10/19/2024 3:10 PM [facility] Total Bilirubin 0.4 0.0 - 1.4 mg/dL LAB CHEMISTRY METHOD 10/19/2024 3:10 PM [facility] Blood Venous blood specimen / Unknown Venipuncture / Unknown 10/19/2024 9:04 AM EDT 10/19/2024 9:04 AM EDT us Federica Angel MD LAB BLOOD ORDERABL ES Final Result [facility] [address] [place] [address], [place] [phone] * Depression Screening (04/21/2024) Depression Screening Abstracted us Historical Provider HEALTH MAINTENANCE Final Result * Pap Smear (03/07/2022) HM Pap smear No interpretation , Abstracted us Historical Provider HEALTH MAINTENANCE Final Result from Last 3 Months or Most Recently Relevant to Health Maintenance Insurance [address] [address] [employer] Care Teams Control Clerk Auditing Relationship Specialty Start Date End Date Federica Angel MD [address] [place] [phone] PCP - General Internal Medicine 07/16/24
== END 2025-04-04 12:08 | disposition home or self-care (01) ==
LOC: HO.MAMMO 12:07
PROVIDERS: PCP Internal Medicine; Visit Provider Internal Medicine
DX: Z12.31 Encounter for screening mammogram for malignant neoplasm of breast (principal)
CPT/HCPCS: 77063; 77067

== ENCOUNTER → 2025-04-04 12:30 | Outpatient (BNV) | payer OTHER, SELFPAY | PROVIDERS: PCP Internal Medicine; Visit Provider Internal Medicine | DX: Z12.31 Encounter for screening mammogram for malignant neoplasm of breast (principal) | CPT/HCPCS: 77063; 77067 ==

== ENCOUNTER 2025-07-18 18:13 | Emergency (ER) | payer OTHER, SELFPAY ==
--- OUTSIDE RECORDS SUMMARY | 2024-05-04 15:13 | XMS_ITS | Encounter Summary ---
Author Organization [employer] Address [address] [place] [address] Care Team Providers Care Saddle And Harness Maker Name Role Phone Federica Angel MD Primary Care Prov ider Encounter Details Date Type Department Care Team (Late st Contact Info) Description 05/04/2024 4:13 PM EDT Hospital Encounter [facility] Federica Angel MD [address] [place] [address] Social History Tobacco Use Types Packs/Day Years Used Date Smoking Tobacco: Never Smokeless Tobacco: Never Alcohol Use Standard Drinks/Week Comments No 0 (1 standard drink = 0.6 oz pur e alcohol) Housing Instability Answer Date Recorde d Are you worried that in the next 2 months you may not have stable housing? No 04/23/2025 Food Access & Nutrition Answer Date Rec orded Do you have access to a vari ety of food including fruits and vegetables? Yes 04/23/2025 Health Literacy Answer Date Recorded How often do you need to hav e someone help you when you read instructions, pamphlets, or other written material from your doctor or pharmacy? Never 04/23/2025 Caregiver: How often do you need to have someone help you when you read instructions, pamphlets, or other written material from your doctor or pharmacy? Not on file 04/23/2025 Financial Risk Answer Date Recorded How hard is it for you to pa y for the very basics like food, housing, medical care, and air conditioning / heating? Not very hard 04/23/2025 Transportation Answer Date Recorded Has the lack of transportati on kept you from meetings, work, or from getting things needed for daily living? No Has the lack of transportati on kept you from medical appointments or from getting medications? No 04/23/2025 Social Isolation Answer Date Recorded How often do you feel lonely or isolated from th ose around you? Never 04/23/2025 Food Risk Answer Date Recorded Within the past 12 months we worried whether our food would run out before we got money to buy more. Never true 04/23/2025 Within the past 12 months th e food we bought just didn't last and we didn't have money to get more. Never true 04/23/2025 Dependent Care Answer Date Recorded Do you need help finding or paying for care for your loved ones. For example, registered nurse maternal child or elderly care for an older adult? No 04/23/2025 Education Answer Date Recorded Do you think completing more education or training, like finishing a GED, going to college, or learning a trade, would be helpful for you? N/A 04/23/2025 Employment and Income Answer Date Recor ded During the last four weeks, have you been actively looking for work? No 04/23/2025 Living Situation Answer Date Recorded What is your living situation? Unrecognized valu e 04/23/2025 Interpersonal Safety Answer Date Record ed Physical Abuse Unrecognized value 11/28/2024 Verbal Abuse Unrecognized value 11/28/2024 Comments No Sex and Gender Information Value Date Recorded Sex Assigned at Not on file Legal Sex Female 2:07 AM EST Gender Identity Not on file Sexual Orientation Not on file documented as of this encounter Plan of Treatment Upcoming Encounters Date Type Department Care Team (Late st Contact Info) Description 10/15/2025 11:00 AM EDT Office Visit Pulmonology - [facility] [address] [place] [address] Zioe Chavis, [place] [address] [place] [address] 10/21/2025 3:00 PM EDT Office Visit Adult Medicine [facility] [address] [place] [address] Federica Angel MD [address] [place], [place] documented as of this encounter Visit Diagnoses Not on filedocumented in this encounter Care Teams Saddle And Harness Maker Relationship Specialty Start Date End Date Federica Angel MD PCP - General 06/17/22 07/15/24 documented as of this encounter
--- NOTE | ~2025-07-18 | US_ITS ---
CLINICAL HISTORY: RUQ pain --- Additional Notes or Special Instructions: assess GB, CBD US limited to the gallbladder Comparison: None Findings: Visualized segments of the liver are free of focal lesions and intrahepatic ductal dilatation. Common bile duct measures 4 mm. Gallbladder reveals multiple nonshadowing stones or sludge balls. No wall thickening or pericholecystic fluid. No sonographic Caraballo's sign. Impression: 1. Nonshadowing gallbladder stones or multiple gallbladder sludge balls. No sonographic evidence of cholecystitis. This document has been electronically signed by: Miguel Parry MD on 07/18/2025 19:39:52
[2025-07-18 19:02] VITALS: BP 162/76; PULSE 92; RESP 20; TEMP 36.8; O2SAT 100; BMI 30.6
--- NOTE | 2025-07-18 19:06 | ED_ITS ---
HPI - Abdominal Pain General Chief Complaint: Abdominal Pain Stated Complaint: stomach pains and nausea Time Seen by Provider: 07/18/25 22:28 History of Present Illness HPI narrative: patient is a 40-year-old female presented today with having abdominal pain. The pain is over the epigastric area associated with some mild nausea happened after some rice and chicken. Has a history of gallstones in the past. pain radiated to the epigastric area last night. There is no shortness of breath there is no diaphoresis. Patient is from home. No history of diabetes, high cholesterol. No smoking. Patient from home. Related Data Home Medications ?Medication ?Instructions ?Recorded ?Confirmed folic acid 400 mcg tablet PO 07/28/20 10/05/24 sertraline 100 mg tablet 100 mg PO DAILY 07/28/2002/22 topiramate 100 mg tablet mg PO 07/28/20 10/05/24 losartan 100 mg tablet 100 mg PO DAILY 07/27/2302/22 Previous Rx's ?Medication ?Instructions ?Recorded naproxen 500 mg tablet 500 mg PO BID PRN pain 10 da ys #20 09/14/21 tabs clotrimazole 1 % vaginal cream 1 appful vaginal BEDTIM E #45 grams 07/21/22 prednisone 20 mg tablet 20 mg PO DAILY #12 tabs 03/01 10/22 cyclobenzaprine 5 mg tablet 5 mg PO TID PRN muscle spa sm #10 09/03/24 tabs hyoscyamine sulfate 0.125 mg tablet 0.125 mg PO QID MD N dyspepsia #10 09/03/24 tabs loperamide 2 mg tablet 2 mg PO Q4H PRN loose stool #14 09/03/24 (Anti-Diarrheal (loperamide)) tabs ondansetron HCl 4 mg tablet 4 mg PO Q6H PRN nausea and 09/03/24 vomiting #10 tabs metronidazole 0.75 % (37.5 mg/5 1 appful vaginal BID 5 days #70 10/08/24 gram) vaginal gel grams pantoprazole 40 mg tablet,delayed 40 mg PO DAILY #14 t abs 07/19/25 release (Protonix) Allergies Allergy/AdvReac Type Severity Reaction Status Date / Time No Known Allergies Allergy Verified 07/18/25 19:07 Review of Systems Review of Systems Positive abdominal pain PMFSH Past Medical History Attestation statement: The following information was validated with the patient. Medical History Hypertension History of HPV infection History of abnormal cervical Pap smear Cyst of uterus Asthma Anxiety Surgical History No history of previous surgery Family History Family History Mother Nerve damage Social History Social History Alcohol intake: never Smoked in Last 30 Days: No Use of substances other than those prescribed or required for medical reasons: No Advance Directives: No Advance Directives Information Provided: Yes Sexual orientation: Straight/Heterosexual Gender identity: Female Physical Exam ED Exam Exam: Appearance: Alert. Oriented X3. No acute distress. Eyes: Pupils equal, round and reactive to light. ENT: Pharynx normal. Neck: Normal inspection. Neck supple. No lymph nodes noted. No crepitus CVS: Normal heart rate and rhythm. Pulses normal. Normal S1 and S2 Respiratory: No respiratory distress. Breath sounds normal. No Wheezing. No rales Abdomen: Soft and nontender. No rigidity. No distention. good BS x4 Skin: Skin warm and dry. Normal skin color. Normal skin turgor. Extremities: No lower extremity edema. Neurovascular intact to all extremities. No Lacerations. No Rash Neuro: Oriented X 3. No motor deficit. No sensory deficit. Moving all extermities. No slurred speech Vital Signs: Vital Signs - 24 hr 07/18/25 19:02 07/18/25 22:41 Temperature 98.3 F 98.5 F Pulse Rate 92 78 Respiratory Rate 20 16 Blood Pressure 162/76 H 162/97 H Pulse Oximetry 100 100 Oxygen Delivery Method Room Air Room Air BMI result Body Mass Index 30.6 Course Course Course Narrative: This is an RME: Additional HPI, ROS, PE not included below will be deferred to primary provider. RME assessment and note performed by: Stacy Martinez PA-C This is a 22-iteb-ruj-female, with a hx of HTN, who presents to the ER with complaints of chest pain and epigastric/RUQ pain. Endorsing nausea. Plan: Labs, UA, US, further ER eval needed Medical Decision Making Medical Decision Making [facility] Narrative: positive epigastric pain. Abdomen is soft nontender. Patient's ultrasound shows gallstone but no evidence of cholecystitis LFTs are normal. Patient's troponin is normal. History not consistent with ACS. My interpretation patient's EKG showed a sinus pattern heart rate is 70 MD QRS QTC normal no acute ST segment elevation. Patient's urine shows large amount of blood consistent with having a her menstruation. COVID flu RSV were all negative. Will start patient on PPI. Will have patient closely follow-up on an outpatient basis low- fat diet reflux precaution in stable condition. Differential Diagnosis Differential Diagnoses: The differential diagnosis associated with the presentation includes ACS, reflux, gastritis, cholecystitis Admission/Observation Consideration of admission/observation: Escalation of care including admission/observation considered Lab Data [facility] Lab Attestation statement: I reviewed the patient's lab results. 07/18/25 19:31 07/18/25 19:31 Labs: Lab Results 07/18/25 07/18/25 07/18/25 Range/Units 19:27 19:31 22:37 WBC 8.0 (4.8-10.8) X10*3/uL RBC 4.24 (4.20-5.50) X10*6/uL Hgb 8.8 L (12.0-16.0) g/dl Hct 30.0 L (37.0-47.0) % MCV 70.8 L (80.0-98.0) fL MCH 20.8 L (27.0-33.0) pg MCHC 29.3 L (31.0-35.0) g/dl RDW 18.9 H (11.0-16.0) % Plt Count 347 D (160-400) X10*3/uL MPV 9.5 (9.4-12.3) fL Immature Gran % (Auto) 0.2 (0.0-0.4) % Neut % (Auto) 66.6 (45-73) % Lymph % (Auto) 20.7 (20-40) % [place] % (Auto) 10.7 (2-11) % Eos % (Auto) 1.2 (0-4) % Baso % (Auto) 0.6 (0-2) % Lymph # (Auto) 1.7 (1.2-4.9) X10*3/uL [place] # (Auto) 0.9 (0.1-1.2) X10*3/uL Eos # (Auto) 0.1 (0.0-0.4) X10*3/uL Baso # (Auto) 0.1 (0.0-0.2) X10*3/uL Abs Immat Gran (auto) 0.02 (0.00-0.03) X10*3/uL Absolute Neuts (auto) 5.3 (2.0-8.3) x10*3/uL Absolute Nucleated RBC 0.000 (0.0-0.012) X10*3/uL Nucleated RBC % (auto) 0.0 (0.0-0.2) /100WBC Sodium 140 (135-145) mmol/L Potassium 4.4 (3.3-5.1) mmol/L Chloride 109 H (96-108) mmol/L Carbon Dioxide 23 (22-29) mmol/L Anion Gap 12 (12-20) BUN 16 (9-16) mg/dL Creatinine 0.95 (0.5-1.4) mg/dL Estim Creat Clear Calc 70.7 Estimated GFR > 60 Random Glucose 91 (60-115) mg/dL Calcium 8.8 (8.4-10.2) mg/dL Magnesium 2.0 (1.6-2.6) mg/dL Total Bilirubin 0.3 (0.0-1.0) mg/dL Direct Bilirubin 0.1 (0.0-0.5) mg/dL AST 18 (5-31) U/L ALT 11 (0-31) U/L Alkaline Phosphatase 68 (39-117) U/L Troponin I High Sens < 2.7 (<3.5-17.0) ng/L Total Protein 7.3 (6.5-8.0) g/dL Albumin 4.1 (3.5-5.0) g/dL Lipase 20 (8-78) U/L Beta HCG, Quant < 2 mIU/mL Urine Color Yellow Urine Appearance Cloudy Urine pH 5.5 (5.0-9.0) Ur Specific [place] 1.025 (1.005-1.025) Urine Protein 30 (1+) H (Neg-Trace) mg/dL Urine Glucose (UA) Negative (Negative) mg/dL Urine Ketones Negative (Negative) mg/dL Urine Blood Large (3+) H (Negative) Urine Nitrite Negative (Negative) Ur Leukocyte Esterase Small (1+) H (Negative) Urine RBC >20 H (0-2) /HPF Urine WBC 21-50 H (0-5) /HPF Ur Squamous Epith Cells 0-2 (0-2) /HPF Urine Bacteria None Seen (None Seen) Hyaline Casts 0-2 (0-2) /LPF Influenza Type A (PCR) NEGATIVE (Negative) Influenza Type B (PCR) NEGATIVE (Negative) RSV RNA Qual (PCR) NEGATIVE (Negative) SARS-CoV-2 RNA (RT-PCR) NEGATIVE (Negative) Independent Interpretation I performed an independent interpretation of an: Ultrasound Radiology Impression Discussion of test interpretation with radiology: I have reviewed the radiologist's reading. Discharge Plan Discharge Clinical Impression: Acid reflux, Gastritis Patient Disposition: Home, Self-Care Instructions: Gastritis (DC), GERD (Gastroesophageal Reflux Disease) (ED) Prescriptions: New pantoprazole [Protonix] 40 mg tablet,delayed release (DR/EC) 40 mg PO DAILY Qty: 14 0RF No Action metronidazole 0.75 % (37.5mg/5 gram) gel 1 appful vaginal BID 5 Days Qty: 70 0RF naproxen 500 mg tablet 500 mg PO BID PRN (Reason: pain) 10 Days Qty: 20 0RF prednisone 20 mg tablet 20 mg PO DAILY Qty: 12 0RF Rx Instructions: Take 3 tabs (60 mg) by mouth daily by mouth for 2 days then 2 tabs (40 mg) daily by mouth for 3 days. hyoscyamine sulfate 0.125 mg tablet 0.125 mg PO QID PRN (Reason: dyspepsia) Qty: 10 0RF cyclobenzaprine 5 mg tablet 5 mg PO TID PRN (Reason: muscle spasm) Qty: 10 0RF ondansetron HCl 4 mg tablet 4 mg PO Q6H PRN (Reason: nausea and vomiting) Qty: 10 0RF loperamide [Anti-Diarrheal (loperamide)] 2 mg tablet 2 mg PO Q4H PRN (Reason: loose stool) Qty: 14 0RF Rx Instructions: administer after each loose stool until symptoms controlled; do not exceed 8 mg per 24 hrs sertraline 100 mg tablet 100 mg PO DAILY topiramate 100 mg tablet PO folic acid 400 mcg tablet PO clotrimazole 1 % cream 1 appful vaginal BEDTIME Qty: 45 1RF losartan 100 mg tablet 100 mg PO DAILY Referrals: Federica Bradley MD [Primary Care Provider, Internal Medicine] - 07/23/25 Print Language: Italian
--- NOTE | 2025-07-18 19:06 | ECG_ITS ---
Test Reason : ABDOMINAL PAIN Blood Pressure : */* mmHG Vent. Rate : 84 BPM Atrial Rate : 84 BPM P-R Int : 124 ms QRS Dur : 94 ms QT Int : 384 ms P-R-T Axes : 41 16 23 degrees QTcB Int : 453 ms Normal sinus rhythm Normal ECG When compared with ECG of 03-Sep-2024 16:13, No significant change was found Referred By: Stacy Martinez Electronically Signed By: Mitchel Mayen
[2025-07-18 19:34] LABS: MANUAL DIFF FLAG NO
[2025-07-18 19:40] LABS: Hematocrit 30.0 % (37.0-47.0); Hemoglobin 8.8 g/dl (12.0-16.0); Imm Gran Abs Auto 0.02 X10*3/uL (0.00-0.03); Imm Gran Pct Auto 0.2 % (0.0-0.4); Lymphocytes Absolute Auto 1.7 X10*3/uL (1.2-4.9); Mean Corpuscular HGB Conc 29.3 g/dl (31.0-35.0); Mean Corpuscular Hemoglobin 20.8 pg (27.0-33.0); Mean Corpuscular Volume 70.8 fL (80.0-98.0); NRBC Abs Auto 0.000 X10*3/uL (0.0-0.012); NRBC Pct Auto 0.0 /100WBC (0.0-0.2); Platelet Count 347 X10*3/uL (160-400); Red Blood Count 4.24 X10*6/uL (4.20-5.50); White Blood Count 8.0 X10*3/uL (4.8-10.8)
[2025-07-18 19:51] LABS: Alanine Aminotransferase 11 U/L (0-31); Albumin Level 4.1 g/dL (3.5-5.0); Alkaline Phosphatase 68 U/L (39-117); Anion Gap 12 (12-20); Aspartate Amino Transferase 18 U/L (5-31); Blood Urea Nitrogen 16 mg/dL (9-16); Calcium 8.8 mg/dL (8.4-10.2); Carbon Dioxide 23 mmol/L (22-29); Chloride 109 mmol/L (96-108); Creatinine Clr Calc Pharmacy 70.7; Estimated Glomerular Filt Rate > 60; Lipase 20 U/L (8-78); Magnesium 2.0 mg/dL (1.6-2.6); Potassium 4.4 mmol/L (3.3-5.1); Sodium 140 mmol/L (135-145); Total Protein 7.3 g/dL (6.5-8.0)
[2025-07-18 20:01] LABS: Troponin-I High Sensitivity < 2.7 ng/L (<3.5-17.0)
--- OUTSIDE RECORDS SUMMARY | 2025-07-18 20:01 | XMS_ITS | Encounter Summary ---
Author Organization [facility] Address [address] [place] [address] Care Team Providers Care Rehab Specialist Name Role Phone Federica Angel MD Primary Care Prov ider Reason for Visit * Reason Onset Date Comments Forms/DMV 07/04/2025 Encounter Details Date Type Department Care Team (Late st Contact Info) Description 07/04/2025 Telephone Pulmonology - [place] [address] [facility] [address] [place] [address] Zoie Chavis, [place] [address] [place] [address] Social History Tobacco Use Types Packs/Day Years [...] care for your loved ones. 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 [...] Progress Notes * Megan Tucker MA - 07/08/2025 11:20 AM EST Message sent to patient * Zoie Chavis NP - 07/04/2025 6:08 PM EST Reviewed paperwork she is compliant with last 30 days at 77% >4hours but 90days she is used only59% therefore send both and let DMV decide. I am not DOT certified and she is not using her CPAP compliantly. * Megan Tucker MA - 07/04/2025 3:31 PM EST Form completed and pending signature * Syeda Fierro - 07/04/2025 12:48 PM EST Patient came into office to drop off DMV forms to be filled out by provider. Forms will be placed in folder at checkout documented in this encounter Plan of Treatment Upcoming Encounters Date Type Department Care Team (Late st Contact Info) Description 10/15/2025 11:00 AM EDT Office Visit Pulmonology - [place] [address] [facility] [address] [place] [phone] Zoie Chavis NP [address] [place] [phone] 10/21/2025 3:00 PM EDT Office Visit Adult Medicine [address] [phone] Federica Angel MD [address] [place], [place] documented as of this encounter Visit Diagnoses Not on filedocumented in this encounter Additional Health Concerns Assessment Noted Time PHQ-9 Depression Total Score: 0 04/23/20 25 2:23 PM EDT documented as of this encounter Care Teams Rehab Specialist Relationship Specialty Start Date End Date Federica Angel MD [address] [place] [phone] PCP - General Internal Medicine 07/16/24 documented as of this encounter
--- OUTSIDE RECORDS SUMMARY | 2025-07-18 20:01 | XMS_ITS ---
Author Name [facility] Organization Unknown Encounters Encounter Type Encounter Reason Primary Diagnosis Location Date Emergency SHORTNESS OF BREATH Cannabis use , unspecified with intoxication, unspecified [facility] 01/08/2025 Care Team Organization Name Specialty Phone Email Start Date End Da te Terminated: [facility] [employer] [facility] 01/09/2025
--- OUTSIDE RECORDS SUMMARY | 2025-07-18 20:01 | XMS_ITS | Clinical Summary ---
Author Organization [facility] Prior to 12/29/[address] [place] [address] Care Team Providers Care Avionics Supervisor Name Role Phone Waldemar Fournier MD Primary Care Provider [phone] Allergies No known active allergies Medications Medication [...] age to complete this topic Care Teams Avionics Supervisor Relationship Specialty Start Date End Date Waldemar Fournier MD PCP - General Internal Medicine 08/04/21
--- OUTSIDE RECORDS SUMMARY | 2025-07-18 20:01 | XMS_ITS | Encounter Summary ---
Author Organization [facility] Address [address] [place] [address] Care Team Providers Care Wild Life Manager Name Role Phone Federica Angel MD Primary Care Prov ider Reason for Visit * Reason Onset Date Comments Abdominal Pain 07/18/2025 Encounter Details Date Type Department Care Team (Late st Contact Info) Description 07/18/2025 Telephone Adult Medicine [facility] [address] [place] [address] Federica Angel MD [address] [place], [place] Social History Tobacco Use Types Packs/Day [...] care for your loved ones. For example, child and family services worker or elderly care for an older adult? [...] Progress Notes * Tania Simpson RN - 07/18/2025 4:16 PM EST Using a tobacco farmworker #[id number] Called pt. , she is having upper abd. Pain /center lost connection called back [facility] Specialist [phone] Started last night but getting worse, she is nauseated feels she will vomit 03/10 no chest pain or sob , no dizziness , no black stool , no burning or bladder pressure. . Abd. Flat and denies bloating, no clamminess . I advised pt. To be evaluated for there severe abd pain in the ER. She agrees andwill have her daughter take her * Madhu Mendoza - 07/18/2025 3:22 PM EST Patient call requires triage: Symptoms patient is presenting: Patient's having upper abdominal pain, Hurts when she eats and drinks. How long has patient had these symptoms?: Last Night For ALL patients calling to schedule any [...] traveled recently to another state outside of [place], [place], [place], [place], [place], [place], [place]? no o If yes, did you quarantine [...] of accident/Injury: No If yes, gather 3rd republican insurance information Third Green Party Information: not applicable PCP: Federica Figueroa MD Payor: [employer]AN / Plan: [employer] MEDICAID / Product Type: *No Product type* / documented in this encounter Plan of Treatment Upcoming Encounters Date Type Department Care Team (Late st Contact Info) Description 10/15/2025 11:00 AM EDT Office Visit Pulmonology - [place] [address] [place] [address] Zoie Chavis, [place] [address] [place] [address] 10/21/2025 3:00 PM EDT Office Visit Adult Medicine [address] [phone] Federica Angel MD [address] [place] [address] documented as of this encounter Visit Diagnoses Not on filedocumented in this encounter Additional Health Concerns Assessment Noted Time PHQ-9 Depression Total Score: 0 04/23/20 25 2:23 PM EDT documented as of this encounter Care Teams Wild Life Manager Relationship Specialty Start Date End Date Federica Angel MD [address] [place] [address] PCP - General Internal Medicine 07/16/24 documented as of this encounter
--- OUTSIDE RECORDS SUMMARY | 2025-07-18 20:01 | XMS_ITS | Clinical Summary ---
Author Organization [address] [facility] Address [address] [place] [address] Phone Care Team Providers Care International Specialist Name Role Phone Federica Angel MD Primary Care Prov ider Allergies No known active allergies Medications Ventolin HFA 90 mcg/actuation inhalerIndication s:Mild persistent asthma, uncomplicated INHALE 2 PUFFS INTO THE LUNGS EVERY 6 HOURS NEEDED FOR COUGH OR WHEEZING. 18 each 6 07/12/20 24 Active sertraline (ZOLOFT) 100 mg tablet Take 1 tablet (100 mg total) by mouth 1 (one) time each day. Active omeprazole OTC (PriLOSEC OTC) 20 mg EC tabletIndications :Epigastric abdominal pain Take 1 tablet (20 mg total) by mouth 1 (one) time each day. Do not crush, chew, or split. 30 tablet 11 10/19/19 25 026 Active ferrous sulfate 325 mg (65 mg iron) EC tablet TAKE 1 TABLET (325 MG TOTAL) BY MOUTH DAILY WITH BREAKFAST DO NOT CRUSH, CHEW, OR SPLIT 90 tablet 1 03/13/20 25 Active SUMAtriptan (IMITREX) 50 mg tablet Take 1 tablet (50 mg total) by mouth 1 (one) time each day if needed for migraine. May repeat dose once in 2 hours if no relief. Do not exceed 2 doses in 24 hours. 9 tablet 2 04/23/20 25 Active amLODIPine (NORVASC) 10 mg tablet Take 1 tablet (10 mg total) by mouth 1 (one) time each day. 90 tablet 04/23/20 25 Active losartan (COZAAR) 100 mg tablet Take 1 tablet (100 mg total) by mouth 1 (one) time each day. 90 tablet 04/23/20 25 Active fluticasone propionate (FLONASE) 50 mcg/actuation nasal sprayIndications: Mild persistent asthma without complication,Heraclio rgic rhinitis, unspecified seasonality, unspecified trigger SPRAY 2 SPRAYS BY NASAL ROUTE DAILY. 48 mL 1 07/16/20 25 Active fluticasone propionate (FLONASE) 50 mcg/actuation nasal sprayIndications: Mild persistent asthma without complication,Heraclio rgic rhinitis, unspecified seasonality, unspecified trigger SPRAY 2 SPRAYS BY NASAL ROUTE DAILY 48 mL 1 01/14/20 25 025 Discontinued Active Problems Problem Noted Date Diagnosed Date Class 1 obesity due to exces s calories with serious comorbidity and body mass index (BMI) of 32.0 to 32.9 in adult 04/23/2025 Moderate obstructive sleep apnea-hypopnea syndro me 07/14/2023 Overview (06/11/2024): [facility] Home Sleep Apnea Test: Date [...] Encounters Date Type Department Care Team Description 07/18/2025 Telephone Adult Medicine [address] [phone] Federica Novoa MD 07/04/2025 Telephone Pulmonology [facility] [address] [phone] Zoie Chavis NP 05/02/2025 Telephone Pulmonology [facility] [address] [phone] Zoie Chavis NP 04/25/2025 Telephone Adult Medicine [address] [phone] Federica Novoa MD 04/23/2025 2:30 PM EDT Office Visit Adult Medicine [address] [phone] Ayanna Bernal PA Primary hypertension (Primary Dx); Class 1 obesity due to excess calories with serious comorbidity and body mass index (BMI) of 32.0 to 32.9 in adult; Encounter for screening involving social determinants of health (SDoH); Screening for depression from Last 3 Months Immunizations Immunization Administration Dates Next Due Pneumococcal conjugate 20 va lent (Prevnar 20, PCV 20) 2mo and older 03/07/2023 Rho (D) Immune Globulin 02/29/2008 Tdap Tetanus diptheria acell ular pertussis (Boostrix; Adacel) 7yo and older 03/07/2023 Medical History Medical History Date Comments Asthma DX:Asthma Anxiety 04/21/2018 DX:Anxiety Complex cyst of right ovary 06/30/2017 DX:C omplex cyst of right ovary Fibroids, submucosal 06/30/2017 DX:Fibroids , submucosal Hypertension 05/31/2017 DX:Hypertension Seizure ([facility]/HCC V24, CMS/HCC V28) 04/21/2018 DX:Seizure (HCC) Migraine [...] care for your loved ones. For example, early childhood director or elderly care for an older adult? [...] Sign Reading Time Taken Comments Blood Pressure 138/87 04/23/2025 2:32 PM EDT Pulse 80 04/23/2025 2:24 PM EDT Temperature 36.4 C (97.5 F) 04/23/2025 2:24 PM EDT Respiratory Rate 16 04/23/2025 2:24 PM EDT Oxygen Saturation 98% 04/23/2025 2:24 PM EDT Inhaled Oxygen Concentration - - Weight 77.6 kg (171 lb) 04/23/2025 2:24 PM EDT Height 154.9 cm (5' 1 ) 04/23/2025 2:24 PM EDT Body Mass Index 32.31 04/23/2025 2:24 PM EDT Plan of Treatment Upcoming Encounters Date Type Department Care Team (Late st Contact Info) Description 10/15/2025 11:00 AM EDT Office Visit Pulmonology - [place] [address] [place] [phone] Zoie Chavis NP [address] [place] [address] 10/21/2025 3:00 PM EDT Office Visit Adult Medicine [address] [phone] Federica Angel MD [address] [place] [address] Health Maintenance Due Date Last Done Comments HPV Vaccines (1 - 3-dose SCD M series) 2010 Cervical Cancer Screening: Pap Smear 11/29/2025 11/29/2024, 10/05/2024, 03/07/2022 Hypertension/CHF/CAD Annual BMP Blood Test 01/08/2026 01/08/2025, 10/19/2024, 03/07/2023 Influenza Vaccine (#1) 2026 Postp oned from 04/01/2025 (Patient Refused) Breast Cancer Screening 04/04/2026 04/04/2025 Social Influencers of Health Screening 04/23/2026 04/23/2025 Cholesterol Screening (Lipid Panel) 10/19/2029 10/19/2024, 03/07/2023 DTaP,Tdap,and Td Vaccines (2 - Td or Tdap) 03/07/2033 03/07/2023 RSV Immunization Adult Patients (1 - 1-dose 75+ series) 2058 HIV Screening Completed 11/06/2014 Hepatitis C Screening Completed 11/07/2014 Pneumococcal Vaccine: Pediatrics (0 to 5 Years) and At-Risk Patients (6 to 49 Years) Completed 03/07/2023 Depression Screening Completed 04/23/2025, 04/21/2024 COVID-19 Vaccine Discontinued HIB Vaccines Aged Out No longer eligi ble based on patient's age to complete this topic Hepatitis A Vaccines Aged Out No long er eligible based on patient's age to complete this topic Hepatitis B Vaccines Discontinued IPV Vaccines Aged Out No longer eligi [...] Procedure Name Priority Date/Time Associated Diagnosis Comments MG MAMMO DIGITAL DIAGNOSTIC BILAT Routine 04/04/2025 10:02 AM EDT PAP SMEAR Routine 11/29/2024 2:58 PM EDT COMPREHENSIVE METABOLIC PANEL Routine 10/19/2024 9:04 AM EDT Primary hypertension LIPID PANEL WITH REFLEX TO DIRECT LDL Routine 10/19/2024 9:04 AM EDT Primary hypertension HM DEPRESSION SCREENING Routine 04/21/2024 from Last 3 Months or Most Recently Relevant to Health Maintenance Results * MG Mammo Digital Diagnostic bilat (04/04/2025 10:02 AM EDT) Anatomical Region Laterality Modality Breast Bilateral Mammography Historical Provider IMG BI PROCEDURES Final R esult * Pap smear (11/29/2024 2:58 PM EDT) Brushing/Spatula Cervix uteri structure / Unknown Historical Provider LAB CYTOLOGY ORDERABLES F inal Result * (ABNORMAL) Lipid panel with reflex to direct LDL (10/19/2024 9:04 AM EDT) Cholesterol 186 0 - 200 mg/dL LAB CHEMISTRY METHOD 10/19/2024 3:10 PM EDT [facility] Triglycerides 53 0 - 150 mg/dL LAB CHEMISTRY METHOD 10/19/2024 3:10 PM EDT [facility] HDL 62 >=40 mg/dL LAB CHEMISTRY METHOD 10/19/2024 3:10 PM EDT [facility] LDL Calculated 113(H) 0 - 100 mg/dL LAB CHEMISTRY METHOD 10/19/2024 3:10 PM EDT [facility] VLDL Cholesterol Dariusz 10.6 mg/dL LAB CHEMISTRY METHOD 10/19/2024 3:10 PM EDT [facility] Non HDL Chol. (LDL+VLDL) 124 <145 mg/dL LAB CHEMISTRY METHOD 10/19/2024 3:10 PM EDT [facility] Chol/HDL Ratio 3.0 0.0 - 4.4 LAB CHEMISTRY METHOD 10/19/2024 3:10 PM [facility] Blood Venous blood specimen / Unknown Venipuncture / Unknown 10/19/2024 9:04 AM EDT 10/19/2024 9:04 AM EDT us Federica Angel MD LAB BLOOD ORDERABL ES Final Result [facility] [address] [place] [address], [place] [phone] * Comprehensive metabolic panel (10/19/2024 9:04 AM EDT) Sodium 136 133 - 145 mmol/L LAB CHEMISTRY METHOD 10/19/2024 3:10 PM [facility] Potassium 4.3 3.5 - 5.5 mmol/L LAB CHEMISTRY METHOD 10/19/2024 3:10 PM [facility] Chloride 104 96 - 110 mmol/L LAB CHEMISTRY METHOD 10/19/2024 3:10 PM [facility] CO2 24 21 - 32 mmol/L LAB CHEMISTRY METHOD 10/19/2024 3:10 PM [facility] Anion Gap 8 3 - 11 LAB CHEMISTRY METHOD 10/19/2024 3:10 PM [facility] Glucose 84 70 - 100 mg/dL LAB CHEMISTRY METHOD 10/19/2024 3:10 PM [facility] BUN 15 5 - 25 mg/dL LAB CHEMISTRY METHOD 10/19/2024 3:10 PM [facility] Creatinine 0.86 0.50 - 1.10 mg/dL LAB CHEMISTRY METHOD 10/19/2024 3:10 PM [facility] eGFR 87 >=60 mL/min/1. 73m2 LAB CHEMISTRY METHOD 10/19/2024 3:10 PM EDT [facility] Comment:Calculation based on the Chronic Kidney Disease Epidemiology Collaboration (CKD-EPI) equation refit without adjustment for race. BUN/Creatinine Ratio 17.4 LAB CHEMISTRY METHOD 10/19/2024 3:10 PM T [facility] Calcium 9.2 8.5 - 10.5 mg/dL LAB CHEMISTRY METHOD 10/19/2024 3:10 PM [facility] AST (SGOT) 11 10 - 42 unit/L LAB CHEMISTRY METHOD 10/19/2024 3:10 PM [facility] ALT (SGPT) 16 10 - 60 unit/L LAB CHEMISTRY METHOD 10/19/2024 3:10 PM [facility] Alkaline Phosphatase 77 42 - 121 unit/L LAB CHEMISTRY METHOD 10/19/2024 3:10 PM [facility] Total Protein 8.0 6.0 - 8.0 g/dL LAB CHEMISTRY METHOD 10/19/2024 3:10 PM [facility] Albumin 4.1 3.2 - 5.0 g/dL LAB CHEMISTRY METHOD 10/19/2024 3:10 PM [facility] Total Bilirubin 0.4 0.0 - 1.4 mg/dL LAB CHEMISTRY METHOD 10/19/2024 3:10 PM [facility] Blood Venous blood specimen / Unknown Venipuncture / Unknown 10/19/2024 9:04 AM EDT 10/19/2024 9:04 AM EDT Federica Angel MD LAB BLOOD ORDERABL ES Final Result [facility] [address] [place] [address], [place] [phone] * Depression Screening (04/21/2024) Pathologist [facility] Depression Screening Abstracted Historical Provider HEALTH MAINTENANCE Final Result from Last 3 Months or Most Recently Relevant to Health [place] [address] Care Teams International Specialist Relationship Specialty Start Date End Date Federica Angel MD [address] [place] [address] PCP - General Internal Medicine 07/16/24
[2025-07-18 20:16] LABS: Resp Syncy Virus RNA Qual PCR NEGATIVE (Negative); SARS COV2 PCR INHOUSE NEGATIVE (Negative)
[2025-07-18 22:41] VITALS: BP 162/97; PULSE 78; RESP 16; TEMP 36.9; O2SAT 100
[2025-07-18 22:55] LABS: Appearance Urine Cloudy; Glucose Urine UA Negative (Negative); PH 5.5 (5.0-9.0); Specific Gravity - Urine 1.025 (1.005-1.025); UMIC TRIGGER UACC YES
[2025-07-18 22:57] LABS: UACC Culture Trigger YES
[2025-07-19 00:21] VITALS: BP 164/95; PULSE 90; RESP 18; TEMP 36.7; O2SAT 100
[2025-07-19 00:23] VITALS: BP 164/95; PULSE 90; RESP 18; TEMP 36.7; O2SAT 100
== END 2025-07-19 00:23 | disposition home or self-care (01) ==
PROVIDERS: Physician Assistant Medical; Emergency Provider Emergency Medicine Emergency Medical Services; PCP Internal Medicine
DX: K52.9 Noninfective gastroenteritis and colitis, unspecified (principal); K21.9 Gastro-esophageal reflux disease without esophagitis; R10.13 Epigastric pain; Z03.818 Encounter for observation for suspected exposure to other biological agents ruled out; J45.909 Unspecified asthma, uncomplicated; I10 Essential (primary) hypertension; Z79.899 Other long term (current) drug therapy
CPT/HCPCS: 36415; 76705; 80048; 80076; 81001; 83690; 83735; 84484; 84702; 85025; 87086; 87637; 93005; 99284; 99285

== ENCOUNTER → 2025-07-18 19:06 | Outpatient (BNV) | payer OTHER, SELFPAY | PROVIDERS: Emergency Provider Emergency Medicine Emergency Medical Services; PCP Internal Medicine; Visit Provider Internal Medicine Cardiovascular Disease | DX: R10.13 Epigastric pain (principal) | CPT/HCPCS: 93010 ==

== ENCOUNTER → 2025-07-18 19:06 | Outpatient (BNV) | payer OTHER, SELFPAY | PROVIDERS: PCP Internal Medicine; Visit Provider Radiology Diagnostic Radiology | DX: R10.11 Right upper quadrant pain (principal) | CPT/HCPCS: 76705 ==